=== PATIENT | female | born 1950 | race Caucasian/White ===

== ENCOUNTER 2016-11-26 16:46 | Emergency (ER) | payer BC ==
[~2016-11-26] VITALS: Ht 165.1 cm; Wt 38.1 kg
[~2016-11-26 16:46] MED LIST: BECL8.7A5 INH; IPRA0.2S6 INH; LISI5TAB PO; MED4 PO; MOME13HF2 INH
[2016-11-26 16:53] VITALS: BP_SYST 147
[2016-11-26 17:25] LABS: BASOPHILS # (AUTO) 0.1 K/uL (0.0-0.2); BASOPHILS % (AUTO) 0.9 % (0.0-2.0); EOSINOPHILS # (AUTO) 0.3 K/uL (0.0-0.4); EOSINOPHILS % (AUTO) 2.9 % (0.0-4.0); HEMATOCRIT 38.5 % (36-48); HEMOGLOBIN 12.8 g/dL (12.0-16.0); LYMPHOCYTES % (AUTO) 22.3 % (20.5-51.5); MEAN CORPUSCULAR HEMOGLOBIN 30 pg (27-31); MEAN CORPUSCULAR HGB CONC 33 % (32-36); MEAN CORPUSCULAR VOLUME 89 fL (79.0-98.0); MONOCYTES # (AUTO) 0.4 K/uL (0.0-1.0); MONOCYTES % (AUTO) 4.4 % (1.7-9.3); NEUTROPHILS # (AUTO) 6.2 K/uL (1.8-7.7); NEUTROPHILS % (AUTO) 69.5 % (40.0-70.0); PLATELET COUNT (AUTO) 317 K/uL (130-430); RED BLOOD CELL COUNT(AUTO) 4.31 MIL/uL (4.2-6.2); RED CELL DISTRIBUTION WIDTH 16.2 % (9.0-15.0)
[2016-11-26 17:36] LABS: INR 0.9 (0.8-1.2); PROTHROMBIN TIME 10.2 SECS (9.5-12.5)
[2016-11-26 17:40] LABS: CALCIUM 8.4 mg/dL (8.4-11.0); CREATININE 0.61 mg/dL (0.55-1.30); POTASSIUM 4.5 mmol/L (3.5-5.1)
[2016-11-26] MEDS ORDERED: BUDE6HFA INH (18:12)
[2016-11-26] MEDS ORDERED: METH4TAB3 PO (18:12)
[2016-11-26] MEDS ORDERED: ACET-1010 PO (18:12)
[2016-11-26] MEDS: ENOXAPARIN SODIUM 40 MG/0.4 ML SYRINGE SUBCUT ONE (18:19)
[2016-11-26] MEDS ORDERED: IOHEXOL 350 mgI/mL, 150 ML INFUS..BTL IV ONE (18:38)
[2016-11-26 19:45] VITALS: BP_SYST 140
== END 2016-11-26 19:45 | disposition home or self-care (01) ==
LOC: SED 16:46
DX: I82.402 Acute embolism and thrombosis of unspecified deep veins of left lower extremity (principal); J45.909 Unspecified asthma, uncomplicated; J44.9 Chronic obstructive pulmonary disease, unspecified; I10 Essential (primary) hypertension; M19.90 Unspecified osteoarthritis, unspecified site; Z88.8 Allergy status to other drugs, medicaments and biological substances; Z88.1 Allergy status to other antibiotic agents
CPT/HCPCS: 36415; 71010; 71275; 80048; 85025; 85610; 85730; 93005; 96372; 99285; J1650; Q9967

== ENCOUNTER 2017-01-02 16:00 | Emergency (ER) | payer BC ==
[~2017-01-02] VITALS: Ht 162.6 cm; Wt 38.1 kg
[~2017-01-02 16:00] MED LIST changes: +ACET-1010 PO; -BECL8.7A5 INH; +BUDE6HFA INH; -IPRA0.2S6 INH; -MED4 PO; +METH4TAB3 PO; -MOME13HF2 INH
[2017-01-02] MEDS ORDERED: NACL 0.9% 1,000 ML IV ONE (16:31)
[2017-01-02] MEDS ORDERED: KETOROLAC TROMETHAMINE 30 MG VIAL IVP ONE (16:45)
[2017-01-02] MEDS ORDERED: PROMETHAZINE HCL 25 MG/ML AMP IM ONE (16:45)
[2017-01-02] MEDS ORDERED: ONDANSETRON HCL 4 MG/2 ML VIAL IVP ONE (16:45)
[2017-01-02 16:52] VITALS: BP_SYST 146
[2017-01-02 16:52] LABS: BASOPHILS # (AUTO) 0.1 K/uL (0.0-0.2); BASOPHILS % (AUTO) 0.7 % (0.0-2.0); EOSINOPHILS # (AUTO) 0.2 K/uL (0.0-0.4); EOSINOPHILS % (AUTO) 2.2 % (0.0-4.0); HEMATOCRIT 39.3 % (36-48); HEMOGLOBIN 12.9 g/dL (12.0-16.0); LYMPHOCYTES # (AUTO) 1.1 K/uL (1.0-5.5); LYMPHOCYTES % (AUTO) 11.6 % (20.5-51.5); MEAN CORPUSCULAR HEMOGLOBIN 30 pg (27-31); MEAN CORPUSCULAR HGB CONC 33 % (32-36); MEAN CORPUSCULAR VOLUME 91 fL (79.0-98.0); MONOCYTES # (AUTO) 0.6 K/uL (0.0-1.0); MONOCYTES % (AUTO) 6.5 % (1.7-9.3); NEUTROPHILS # (AUTO) 7.7 K/uL (1.8-7.7); PLATELET COUNT (AUTO) 252 K/uL (130-430); RED BLOOD CELL COUNT(AUTO) 4.32 MIL/uL (4.2-6.2); RED CELL DISTRIBUTION WIDTH 14.1 % (9.0-15.0); WHITE BLOOD COUNT (AUTO) 9.7 K/uL (4.8-10.8)
[2017-01-02 16:57] LABS: CALCIUM 8.6 mg/dL (8.4-11.0); CREATININE 0.63 mg/dL (0.55-1.30); POTASSIUM 4.1 mmol/L (3.5-5.1)
[2017-01-02 17:01] LABS: ALBUMIN 3.6 g/dL (3.4-4.8); TOTAL BILIRUBIN 0.7 mg/dL (0.0-1.0)
[2017-01-02 17:57] LABS: BILIRUBIN,URINE NEGATIVE (NEGATIVE); BLOOD, URINE NEGATIVE (NEGATIVE); CLARITY/URINE CLEAR (CLEAR); COLOR,URINE YELLOW (YELLOW); GLUCOSE,URINE NEGATIVE (NEGATIVE); KETONES,URINE 3+ (NEGATIVE); LEUKOCYTE ESTERASE ,URINE NEGATIVE (NEGATIVE); NITRITE, URINE NEGATIVE (NEGATIVE); PH,URINE 5.5 (5.0-8.0); PROTEIN URINE 2+ (NEGATIVE); UROBILINOGEN,URINE 0.2 (0.2-1.0)
[2017-01-02] MEDS ORDERED: MECLIZINE HCL 25 MG TABLET (ANITVERT) PO ONE (18:00)
[2017-01-02 18:09] LABS: BACTERIA,URINE FEW /HPF (None Seen); MUCUS,URINE None Seen /LPF (None Seen); RBC,URINE NONE SEEN /HPF (0-3); WBC,URINE 0-3 /HPF (0-3)
[2017-01-02 20:32] VITALS: BP_SYST 138
== END 2017-01-02 20:32 | disposition home or self-care (01) ==
LOC: SED 16:00
DX: R42 Dizziness and giddiness (principal); J44.9 Chronic obstructive pulmonary disease, unspecified; I10 Essential (primary) hypertension; Z88.1 Allergy status to other antibiotic agents
CPT/HCPCS: 36415; 70450; 80053; 81000; 82150; 83690; 85025; 96361; 96372; 96374; 96375; 99285; J1885; J2405; J2550; J7030; J8597

== ENCOUNTER 2017-01-11 14:37 | Emergency (ER) | payer BC ==
[~2017-01-11] VITALS: Ht 162.6 cm; Wt 38.1 kg
[2017-01-11 14:40] VITALS: BP_SYST 152
[2017-01-11 15:01] LABS: BASOPHILS # (AUTO) 0.1 K/uL (0.0-0.2); BASOPHILS % (AUTO) 1.4 % (0.0-2.0); EOSINOPHILS # (AUTO) 0.4 K/uL (0.0-0.4); EOSINOPHILS % (AUTO) 4.3 % (0.0-4.0); HEMATOCRIT 39.8 % (36-48); HEMOGLOBIN 12.9 g/dL (12.0-16.0); LYMPHOCYTES # (AUTO) 1.3 K/uL (1.0-5.5); LYMPHOCYTES % (AUTO) 13.9 % (20.5-51.5); MEAN CORPUSCULAR HEMOGLOBIN 30 pg (27-31); MEAN CORPUSCULAR HGB CONC 33 % (32-36); MEAN CORPUSCULAR VOLUME 91 fL (79.0-98.0); MONOCYTES # (AUTO) 0.6 K/uL (0.0-1.0); MONOCYTES % (AUTO) 6.1 % (1.7-9.3); NEUTROPHILS # (AUTO) 7.1 K/uL (1.8-7.7); NEUTROPHILS % (AUTO) 74.3 % (40.0-70.0); PLATELET COUNT (AUTO) 372 K/uL (130-430); RED BLOOD CELL COUNT(AUTO) 4.39 MIL/uL (4.2-6.2); RED CELL DISTRIBUTION WIDTH 13.9 % (9.0-15.0); WHITE BLOOD COUNT (AUTO) 9.5 K/uL (4.8-10.8)
[2017-01-11 15:11] LABS: CALCIUM 9.3 mg/dL (8.4-11.0); CREATININE 0.7 mg/dL (0.55-1.30)
[2017-01-11 15:16] LABS: ALBUMIN 3.7 g/dL (3.4-4.8); TOTAL BILIRUBIN 0.5 mg/dL (0.0-1.0); TOTAL PROTEIN, SERUM 7.5 g/dL (6.4-8.3)
[2017-01-11] MEDS ORDERED: NACL 0.9% 1,000 ML IV ONE (18:57)
[2017-01-11 19:18] LABS: BILIRUBIN,URINE NEGATIVE (NEGATIVE); CLARITY/URINE CLEAR (CLEAR); COLOR,URINE YELLOW (YELLOW); GLUCOSE,URINE NEGATIVE (NEGATIVE); KETONES,URINE NEGATIVE (NEGATIVE); LEUKOCYTE ESTERASE ,URINE NEGATIVE (NEGATIVE); NITRITE, URINE NEGATIVE (NEGATIVE); PH,URINE 5.5 (5.0-8.0); PROTEIN URINE NEGATIVE (NEGATIVE); UROBILINOGEN,URINE 0.2 (0.2-1.0)
[2017-01-11 19:19] LABS: BLOOD, URINE TRACE (NEGATIVE)
[2017-01-11 19:21] LABS: BACTERIA,URINE FEW /HPF (None Seen); MUCUS,URINE 1+ /LPF (None Seen); RBC,URINE 0-3 /HPF (0-3)
[2017-01-11 20:35] VITALS: BP_SYST 127
== END 2017-01-11 20:35 | disposition home or self-care (01) ==
LOC: SED 14:37
DX: K52.9 Noninfective gastroenteritis and colitis, unspecified (principal); K59.00 Constipation, unspecified; J44.9 Chronic obstructive pulmonary disease, unspecified; I10 Essential (primary) hypertension; Z88.8 Allergy status to other drugs, medicaments and biological substances
CPT/HCPCS: 36415; 74176; 80053; 81000; 82150; 83690; 85025; 96360; 99285; J7030

== ENCOUNTER 2017-01-15 04:50 | Inpatient (IN) | payer BC ==
[2017-01-15] VITALS (7 sets, daily range): BP systolic 115–141
[~2017-01-15] VITALS: Ht 162.6 cm; Wt 38.1 kg
[2017-01-15] MEDS ORDERED: NACL 0.9% 1,000 ML IV ONE (05:12)
[2017-01-15] MEDS ORDERED: IPRATROPIUM BROM 0.5 MG/2.5 ML VIAL.NEB (ATROVENT) IH ONE ×2 (05:15→07:45)
[2017-01-15] MEDS ORDERED: LevALBUTEROL HCL 1.25 MG/0.5 ML *CONC.* VIAL.NEB (XOPENEX CONC.) INH ONE ×2 (05:15→06:00)
[2017-01-15 05:53] LABS: BASOPHILS # (AUTO) 0.1 K/uL (0.0-0.2); BASOPHILS % (AUTO) 0.8 % (0.0-2.0); EOSINOPHILS # (AUTO) 0.7 K/uL (0.0-0.4); EOSINOPHILS % (AUTO) 7.7 % (0.0-4.0); HEMATOCRIT 38.8 % (36-48); HEMOGLOBIN 12.6 g/dL (12.0-16.0); LYMPHOCYTES # (AUTO) 1.7 K/uL (1.0-5.5); LYMPHOCYTES % (AUTO) 18.3 % (20.5-51.5); MEAN CORPUSCULAR HEMOGLOBIN 30 pg (27-31); MEAN CORPUSCULAR HGB CONC 32 % (32-36); MEAN CORPUSCULAR VOLUME 92 fL (79.0-98.0); MONOCYTES # (AUTO) 0.5 K/uL (0.0-1.0); NEUTROPHILS # (AUTO) 6.1 K/uL (1.8-7.7); NEUTROPHILS % (AUTO) 68.2 % (40.0-70.0); PLATELET COUNT (AUTO) 358 K/uL (130-430); RED BLOOD CELL COUNT(AUTO) 4.24 MIL/uL (4.2-6.2); RED CELL DISTRIBUTION WIDTH 13.6 % (9.0-15.0); WHITE BLOOD COUNT (AUTO) 9.1 K/uL (4.8-10.8)
[2017-01-15 06:00] LABS: CALCIUM 8.7 mg/dL (8.4-11.0); CREATININE 0.58 mg/dL (0.55-1.30); POTASSIUM 3.8 mmol/L (3.5-5.1)
[2017-01-15] MEDS ORDERED: ALBU8.5H8 INH (07:17)
[2017-01-15] MEDS ORDERED: ALBU2.5V7 INH (07:17)
[2017-01-15] MEDS ORDERED: RIVA20TA PO (07:17)
[2017-01-15] MEDS ORDERED: methylPREDNISolone SOD SUCC/PF 62.5 MG/ML VIAL IVP ONE (07:45)
[2017-01-15] MEDS ORDERED: ALBUTEROL SULFATE 0.083% 2.5 MG/3 ML VIAL.NEB IH ONE (07:45)
[2017-01-15 07:47] LABS: BILIRUBIN,URINE NEGATIVE (NEGATIVE); BLOOD, URINE NEGATIVE (NEGATIVE); CLARITY/URINE CLEAR (CLEAR); COLOR,URINE YELLOW (YELLOW); GLUCOSE,URINE NEGATIVE (NEGATIVE); KETONES,URINE NEGATIVE (NEGATIVE); LEUKOCYTE ESTERASE ,URINE NEGATIVE (NEGATIVE); NITRITE, URINE NEGATIVE (NEGATIVE); PH,URINE 5.5 (5.0-8.0); PROTEIN URINE NEGATIVE (NEGATIVE); UROBILINOGEN,URINE 0.2 (0.2-1.0)
[2017-01-15] MEDS ORDERED: LORazepam 2 MG/ML VIAL (FOR ER USE) IVP ONE (08:00)
[2017-01-15] MEDS ORDERED: cefTRIAXone 1 GM IVPB PREMIX 50 ML IV ONE (08:00)
[2017-01-15] MEDS ORDERED: AZITHROMYCIN 500 MG in NS 250 ML IV ONE (08:00)
[2017-01-15] MEDS ORDERED: cefTRIAXone 1 GM in D5W 50 ML IV ONE (08:30)
[2017-01-15] MEDS ORDERED: AZITHROMYCIN 500 MG/VIAL (ZITHROMAX) IV ONE (08:38)
[2017-01-15 09:10] LABS: ABG TOTAL HEMOGLOBIN 13.1 G/dL (12.0-18.0); BLOOD GAS BASE EXCESS -0.3 mmol/L (-3.0-3.0); BLOOD GAS COHb% 0.1 % (0.5-1.5); BLOOD GAS HHB 6.8 % (0.0-6.0); BLOOD O2Hb% 92.8 % (94.0-97.0)
[2017-01-15] MEDS ORDERED: ACETAMINOPHEN 500 MG TABLET PO PRN (11:00)
[2017-01-15] MEDS ORDERED: methylPREDNISolone SOD SUCC/PF 62.5 MG/ML VIAL IVP SCH (12:00)
[2017-01-15] MEDS: ALBUTEROL SULFATE 0.083% 2.5 MG/3 ML VIAL.NEB INH SCH ×4 (13:35→23:00)
[2017-01-15] MEDS: ALBUTEROL SULFATE 0.083% 2.5 MG/3 ML VIAL.NEB INH PRN (13:38)
[2017-01-15] MEDS: IPRATROPIUM BROM 0.5 MG/2.5 ML VIAL.NEB (ATROVENT) INH SCH ×2 (20:12→23:00)
[2017-01-15] MEDS: cefTRIAXone 1 GM in D5W 50 ML IV SCH (21:28)
[2017-01-15] MEDS: methylPREDNISolone SOD SUCC 40 MG/ML VIAL IVP SCH (21:28)
[2017-01-16] VITALS (8 sets, daily range): BP systolic 103–127
[2017-01-16] MEDS: IPRATROPIUM BROM 0.5 MG/2.5 ML VIAL.NEB (ATROVENT) INH SCH ×6 (03:00→23:15)
[2017-01-16] MEDS: ALBUTEROL SULFATE 0.083% 2.5 MG/3 ML VIAL.NEB INH SCH ×6 (03:00→23:00)
[2017-01-16] MEDS: methylPREDNISolone SOD SUCC 40 MG/ML VIAL IVP SCH ×3 (06:29→22:06)
[2017-01-16] MEDS: RIVAROXABAN 10 MG TABLET PO SCH (08:51)
[2017-01-16] MEDS: AZITHROMYCIN 500 MG in NS 250 ML IV SCH (08:55)
[2017-01-16] MEDS: LISINOPRIL 5 MG TABLET PO SCH (08:58)
[2017-01-16] MEDS: FLUTICASONE/VILANTEROL 1 EACH BLST.W.DEV INH SCH (09:00)
[2017-01-16] MEDS: ALBUTEROL SULFATE 0.083% 2.5 MG/3 ML VIAL.NEB INH PRN (10:39)
[2017-01-16] MEDS ORDERED: LORazepam 2 MG/ML VIAL IVP PRN (10:45)
[2017-01-16] MEDS: ACETYLCYSTEINE 10% 4 ML VIAL (RT) INH SCH ×2 (15:07→19:46)
[2017-01-16] MEDS ORDERED: MONTELUKAST 10 MG TABLET PO SCH (18:00)
[2017-01-16] MEDS: cefTRIAXone 1 GM in D5W 50 ML IV SCH (22:07)
[2017-01-17 00:21] VITALS: BP_SYST 125
[2017-01-17] MEDS: ALBUTEROL SULFATE 0.083% 2.5 MG/3 ML VIAL.NEB INH SCH ×3 (03:00→11:46)
[2017-01-17] MEDS: IPRATROPIUM BROM 0.5 MG/2.5 ML VIAL.NEB (ATROVENT) INH SCH ×3 (03:00→11:46)
[2017-01-17 04:11] VITALS: BP_SYST 125
[2017-01-17] MEDS: methylPREDNISolone SOD SUCC 40 MG/ML VIAL IVP SCH (06:02)
[2017-01-17 06:27] LABS: HEMATOCRIT 34.7 % (36-48); HEMOGLOBIN 11.4 g/dL (12.0-16.0); MEAN CORPUSCULAR HEMOGLOBIN 30 pg (27-31); MEAN CORPUSCULAR HGB CONC 33 % (32-36); MEAN CORPUSCULAR VOLUME 91 fL (79.0-98.0); PLATELET COUNT (AUTO) 312 K/uL (130-430); RED BLOOD CELL COUNT(AUTO) 3.81 MIL/uL (4.2-6.2); RED CELL DISTRIBUTION WIDTH 13.4 % (9.0-15.0); WHITE BLOOD COUNT (AUTO) 14.7 K/uL (4.8-10.8)
[2017-01-17 07:50] VITALS: BP_SYST 127
[2017-01-17] MEDS: ACETYLCYSTEINE 10% 4 ML VIAL (RT) INH SCH ×2 (07:56→11:47)
[2017-01-17] MEDS: AZITHROMYCIN 500 MG in NS 250 ML IV SCH (08:30)
[2017-01-17] MEDS: RIVAROXABAN 10 MG TABLET PO SCH (08:31)
[2017-01-17] MEDS: FLUTICASONE/VILANTEROL 1 EACH BLST.W.DEV INH SCH (08:31)
[2017-01-17] MEDS: LISINOPRIL 5 MG TABLET PO SCH (08:31)
[2017-01-17 09:50] LABS: ATYPICAL LYMPHOCYTES % 0 % (0-0); BAND % (MANUAL) 1 % (0-6); BASOPHILS % (MANUAL) 0 % (0-2); EOSINOPHILS % (MANUAL) 0 % (0-7); LYMPHOCYTES % (MANUAL) 6 % (20-46); MONOCYTES % (MANUAL) 0 % (0-11)
[2017-01-17 11:28] LABS: ALBUMIN 3.1 g/dL (3.4-4.8); CALCIUM 8.8 mg/dL (8.4-11.0); CREATININE 0.52 mg/dL (0.55-1.30); POTASSIUM 4.4 mmol/L (3.5-5.1); TOTAL BILIRUBIN 0.4 mg/dL (0.0-1.0); TOTAL PROTEIN, SERUM 6.4 g/dL (6.4-8.3)
[2017-01-17 12:54] VITALS: BP_SYST 125
[2017-01-17] MEDS ORDERED: DOXY100T2 PO (13:02)
[2017-01-17] MEDS ORDERED: LORA-258 PO (13:03)
[2017-01-17] MEDS ORDERED: ROBDM PO (13:04)
[2017-01-17] MEDS ORDERED: medrol pack PO (13:05)
[2017-01-17 13:10] VITALS: BP_SYST 125
== END 2017-01-17 14:00 | disposition home or self-care (01) | DRG 191 ==
LOC: SED 04:50 → STU 08:16
DX: J44.1 Chronic obstructive pulmonary disease with (acute) exacerbation (principal); J45.901 Unspecified asthma with (acute) exacerbation; I82.402 Acute embolism and thrombosis of unspecified deep veins of left lower extremity; E44.1 Mild protein-calorie malnutrition; G62.9 Polyneuropathy, unspecified; M19.90 Unspecified osteoarthritis, unspecified site; M54.9 Dorsalgia, unspecified; F03.90 Unspecified dementia, unspecified severity, without behavioral disturbance, psychotic disturbance, mood disturbance, and anxiety; K21.9 Gastro-esophageal reflux disease without esophagitis; G89.29 Other chronic pain; F41.9 Anxiety disorder, unspecified; I10 Essential (primary) hypertension; Z79.01 Long term (current) use of anticoagulants; Z79.52 Long term (current) use of systemic steroids; Z88.6 Allergy status to analgesic agent; Z88.1 Allergy status to other antibiotic agents; Z90.2 Acquired absence of lung [part of]; Z98.49 Cataract extraction status, unspecified eye; Z79.899 Other long term (current) drug therapy
CPT/HCPCS: 36415; 36600; 71010; 80048; 80053; 81003; 82803-TC; 83605; 85007; 85025; 85027; 87040-TC; 87081; 94640; 94760; 96361; 96365; 96367; 96375; 99285; J0456; J0696; J1030; J2060; J2930; J7030; J7050; J7060

== ENCOUNTER 2017-03-09 12:00 | Inpatient (IN) | payer BC ==
[~2017-03-09] VITALS: Ht 162.6 cm; Wt 38.1 kg
[~2017-03-09 12:00] MED LIST changes: +ALBU2.5V7 INH; +ALBU8.5H8 INH; +DOXY100T2 PO; +LORA-258 PO; -METH4TAB3 PO; +RIVA20TA PO; +ROBDM PO; +medrol pack PO
[2017-03-09 12:10] VITALS: BP_SYST 125
--- NOTE | 2017-03-09 12:18 | NUR ---
PT STATES SOB GETTING WORSE IN THE PAST COUPLE DAYS, USING INHALER IS NO LONGER HELPING. +DRY COUGH.
--- NOTE | 2017-03-09 12:20 | NUR ---
BRAND COORDINATOR AT BEDSIDE FOR BREATHING TREATMENT
--- NOTE | 2017-03-09 12:22 | NUR ---
CHEST XRAY DONE AT BEDSIDE.
[2017-03-09] MEDS ORDERED: PREDNISONE 20 MG TABLET PO ONE (12:30)
[2017-03-09] MEDS ORDERED: IPRATROPIUM BROM 0.5 MG/2.5 ML VIAL.NEB (ATROVENT) INH ONE (12:30)
[2017-03-09] MEDS ORDERED: ALBUTEROL SULFATE 0.083% 2.5 MG/3 ML VIAL.NEB INH ONE (12:30)
[2017-03-09 13:03] LABS: HEMATOCRIT 39.4 % (36-48); HEMOGLOBIN 12.8 g/dL (12.0-16.0); MEAN CORPUSCULAR HEMOGLOBIN 29 pg (27-31); MEAN CORPUSCULAR HGB CONC 32 % (32-36); MEAN CORPUSCULAR VOLUME 89 fL (79.0-98.0); PLATELET COUNT (AUTO) 284 K/uL (130-430); RED BLOOD CELL COUNT(AUTO) 4.41 MIL/uL (4.2-6.2); RED CELL DISTRIBUTION WIDTH 14.4 % (9.0-15.0); WHITE BLOOD COUNT (AUTO) 11.1 K/uL (4.8-10.8)
[2017-03-09 13:16] LABS: CALCIUM 8.8 mg/dL (8.4-11.0); CREATININE 0.63 mg/dL (0.55-1.30)
[2017-03-09 13:20] LABS: ALBUMIN 3.6 g/dL (3.4-4.8); TOTAL BILIRUBIN 0.8 mg/dL (0.0-1.0); TOTAL PROTEIN, SERUM 7.4 g/dL (6.4-8.3)
--- NOTE | 2017-03-09 13:31 | NUR ---
PT STATES THAT SHE FEELS BETTER SINCE BREATHING TREATMENT GIVEN. NO CHANGES, DENIES ANY PAIN
--- NOTE | 2017-03-09 13:47 | NUR ---
DR LEO AT BEDSIDE FOR EVALUATION
[2017-03-09 13:57] LABS: ATYPICAL LYMPHOCYTES % 0 % (0-0); BAND % (MANUAL) 0 % (0-6); BASOPHILS % (MANUAL) 0 % (0-2); EOSINOPHILS % (MANUAL) 23 % (0-7); LYMPHOCYTES % (MANUAL) 17 % (20-46); MONOCYTES % (MANUAL) 9 % (0-11)
--- NOTE | 2017-03-09 14:20 | NUR ---
NO CHANGES, +DRY COUGHING
[2017-03-09] MEDS ORDERED: cefTRIAXone 1 GM in D5W 50 ML IV ONE (14:45)
[2017-03-09] MEDS ORDERED: MOME13HF2 INH (14:51)
[2017-03-09] MEDS ORDERED: MED4 PO (14:51)
--- NOTE | 2017-03-09 15:07 | NUR ---
REPORT GIVEN TO ROBBIE, WILL ASSUME CARE
--- NOTE | 2017-03-09 15:08 | NUR ---
RECEIVED ADMITTING ORDERS FROM DR BONILLA
[2017-03-09] MEDS ORDERED: cefTRIAXone 1 GM VIAL ONE (15:24)
[2017-03-09 15:34] LABS: BLOOD GAS PH 7.465 (7.350-7.450)
[2017-03-09 15:35] LABS: ABG TOTAL HEMOGLOBIN 13.8 G/dL (12.0-18.0); BLOOD GAS BASE EXCESS 2.2 mmol/L (-3.0-3.0)
[2017-03-09 15:36] LABS: BLOOD GAS COHb% 0.4 % (0.5-1.5); BLOOD GAS HHB 13.7 % (0.0-6.0); BLOOD O2Hb% 85.7 % (94.0-97.0)
--- NOTE | 2017-03-09 16:00 | NUR ---
Patient will be admitted to care of Dr Carrillo. Admitted to tele unit. Will go to room 116 A. Belongings list completed. Summary report printed. Report will be given at bedside.
--- NOTE | 2017-03-09 16:00 | NUR ---
Transfer to tele via ACLS protocol. Licensed nurse present. IV present no signs or symptoms of infiltration.
[2017-03-09 16:05] VITALS: BP_SYST 123
--- NOTE | 2017-03-09 16:05 | NUR ---
ADMISSION NOTE Received patient from ER via gurney. Patient admitted with diagnosis of ASTHMA EXACERBATION. Patient oriented to hospital routine, call light, toileting and safety-patient verbalized understanding.
--- NOTE | 2017-03-09 17:09 | NUR ---
Rounds to patient says she was given prednisone. Wants solumedrol because says its the only thing that works for her shortness of breath. Wheezing audible in right upper lobe, diminished left upper lobe. paged.
[2017-03-09] MEDS ORDERED: methylPREDNISolone SOD SUCC/PF 62.5 MG/ML VIAL IVP ONE (17:30)
--- NOTE | 2017-03-09 17:42 | NUR ---
CONSULT PULMONOLOGY ASTHMA EXACERBATION DR LUCAS [phone] DR US RESEARCH GROUP DIRECTOR S/W MADDI @[phone]
--- NOTE | 2017-03-09 19:12 | NUR ---
HANDOFF REPORT WITH NIGHT NURSE. PATIENT USING WALKER TO AMBULATE TO RESTROOM. PATIENT NOTES SOLUMEDROL WORKS TO RELIEVE ASTHMA SHORTNESS OF BREATH. HAS ORDERS FOR PULMONARY CONSULT WITH DOCTOR LANCE AND ALBUTEROL NEBULIZER WITH OXYGEN 2L.
[2017-03-09] MEDS: ALBUTEROL SULFATE 0.083% 2.5 MG/3 ML VIAL.NEB INH PRN ×2 (19:35→23:53)
--- NOTE | 2017-03-09 19:46 | NUR ---
Initial Notes Pt is A/Ox4, cooperative. Pt becomes easily sob, and is currently on 2L N/C with O2 saturation at 95%. Pt instructed to take deep breaths thru her nose and out her mouth. RT called and currently is giving pt breathing tx. Pt noted to have a non productive cough. Lung sounds auscultated with some rhonchi and wheezing heard over anterior lung sounds. IV to LFA #22g noted, saline lock with no s/s of infection. Plan of care discussed with pt, pt verbalized understanding. Will reinforce teaching as needed. VSS. Safety measures in place, side rails up x3 with bed in lowest, locked position, bed alarm on. Pt educated director of curriculum and instruction light and correct back demonstration noted. Call light in hand. Will continue to monitor.
[2017-03-09 19:51] VITALS: BP_SYST 134
[2017-03-09] MEDS: AZITHROMYCIN 500 MG in NS 250 ML IV SCH (20:10)
[2017-03-09] MEDS: RIVAROXABAN 10 MG TABLET PO SCH (20:14)
[2017-03-09 21:28] VITALS: BP_SYST 137
[2017-03-09] MEDS: methylPREDNISolone SOD SUCC/PF 62.5 MG/ML VIAL IVP SCH (22:26)
[2017-03-10] VITALS: BP_SYST 93
--- NOTE | 2017-03-10 01:26 | NUR ---
Rounds Pt is sleeping comfortably in bed with no acute distress or sob noted. All needs met. VSS. Call light in reach. Will continue to monitor.
--- NOTE | 2017-03-10 04:22 | NUR ---
Rounds Pt is sleeping safely at this time with no acute distress or sob noted. All needs met. Call light in reach. Will continue to monitor.
[2017-03-10 04:42] VITALS: BP_SYST 122
[2017-03-10] MEDS: methylPREDNISolone SOD SUCC/PF 62.5 MG/ML VIAL IVP SCH ×3 (05:52→22:00)
--- NOTE | 2017-03-10 06:31 | NUR ---
Closing Notes Pt is resting comfortably in bed with no acute distress noted. IV site intact. VSS. All needs met throughout shift. Will endorse care to am nurse. Call light within reach.
--- NOTE | 2017-03-10 07:44 | NUR ---
OPENING NOTE: PT RESTING IN BED IN HIGH FOWLERS. NO ACUTE SIGNS OF RESP DISTRESS, NO SOB. PT ON 2L O2 NC AND SATURATING AT 94% O2. SKIN WARM DRY AND PINK. IV INTACT AND PATENT, NO REDNESS/SWELLING/PAIN TO SITE. BED AT LOWEST POSITION, CALL LIGHT IN REACH. WALKER WITHIN REACH.
[2017-03-10 07:49] VITALS: BP_SYST 115
[2017-03-10] MEDS: LISINOPRIL 10 MG TABLET (PRINIVIL) PO SCH (08:31)
[2017-03-10] MEDS: cefTRIAXone 1 GM IVPB PREMIX 50 ML IV SCH (08:31)
--- NOTE | 2017-03-10 09:09 | NUR ---
Nutrition Update Wang Scale 18 noted. Pt admitted for asthma exacerbation. Diet: regular BMI: 17.6 kg/m2 RD to follow per nutrition care standards.
--- NOTE | 2017-03-10 10:35 | NUR ---
ROUNDING: PT AAOX4. NO ACUTE SIGNS OF RESP DISTRESS. PT ON 2L O2 NC. PT DENIES SOB, CHEST PRESSURE, DIZZINESS AND LIGHTHEADED. DENIES PAIN AT THIS TIME. SKIN COLOR PINK. IV INTACT AND PATENT, NO REDNESS/SWELLING/PAIN. WALKER WITHIN REACH. BED AT LOWEST POSITION, CALL LIGHT IN REACH. ALL NEEDS MET AT THIS TIME.
--- NOTE | 2017-03-10 10:38 | NUR ---
ROUNDING: PT REST IN BED WITH HOB ELEVATED. NO ACUTE SIGNS OF RESP DISTRESS, PT ON RA. SKIN COLOR PINK. IV INTACT AND PATENT, NO REDNESS/SWELLING/PAIN. DENIES PAIN AT THIS TIME. AM MEDS GIVEN PER MD ORDERS AND PT TOLERATED WELL. BED AT LOWEST POSITION, CALL LIGHT IN REACH, BED ALARM ON, SIDE RAILX3.
[2017-03-10 12:02] VITALS: BP_SYST 119
--- NOTE | 2017-03-10 12:50 | NUR ---
ROUNDING: PT RESTING IN BED. NO ACUTE SIGNS OF RESP DISTRESS. PT ON 2L O2 NC. PT DENIES SOB, DIZZINESS/LIGHTHEADED, AND CHEST PAIN. SKIN COLOR PINK. IV INTACT AND PATENT, NO REDNESS/SWELLING/PAIN. WALKER WITHIN REACH. BED AT LOWEST POSITION, CALL LIGHT IN REACH.
[2017-03-10] MEDS: ALBUTEROL SULFATE 0.083% 2.5 MG/3 ML VIAL.NEB INH SCH ×2 (14:01→20:22)
[2017-03-10] MEDS: IPRATROPIUM BROM 0.5 MG/2.5 ML VIAL.NEB (ATROVENT) INH SCH ×2 (14:02→20:22)
--- NOTE | 2017-03-10 14:10 | NUR ---
ROUNDING: PT RESTING IN BED, HIGH FOWLERS. NO ACUTE SIGNS OF RESP DISTRESS. SKIN WARM DRY AND PINK. PT ON 2L O2 NC, TOLERATING WELL. PT DENIES SOB, CHEST PAIN, DIZZINESS AND LIGHTHEADED. MEDS GIVEN PER MD ORDERS, PT TOLERATED WELL. IV INTACT AND PATENT, NO REDNESS/SWELLING. BED AT LOWEST POSITION, CALL LIGHT IN REACH, WALKER WITHIN REACH.
--- NOTE | 2017-03-10 16:07 | NUR ---
ROUNDING: PT RESTING IN BED, HIGH FOWLERS. NO ACUTE SIGNS OF RESP DISTRESS. DENIES SOB AND CHEST PAIN. SKIN COLOR PINK. IV INTACT AND PATENT, NO REDNESS/SWELLING/PAIN. WALKER IN REACH. ALL NEEDS MET AT THIS TIME. BED AT LOWEST POSITION, CALL LIGHT IN REACH.
[2017-03-10 16:25] VITALS: BP_SYST 122
[2017-03-10] MEDS: RIVAROXABAN 10 MG TABLET PO SCH (18:00)
[2017-03-10] MEDS: AZITHROMYCIN 500 MG in NS 250 ML IV SCH (18:00)
--- NOTE | 2017-03-10 18:26 | NUR ---
CLOSING NOTE: PT RESTING IN BED IN HIGH FOWLERS, WATCHING TV. AAOX4. NO ACUTE SIGNS OF RESP DISTRESS, DENIES SOB. SKIN COLOR PINK. IV INTACT AND PATENT, NO REDNESS/SWELLING/PAIN. MEDS GIVEN PER MD ORDERS, PT TOLERATED WELL. WALKER WITHIN REACH. BED AT LOWEST POSITION, CALL LIGHT IN REACH. WILL ENDORSE PLAN OF CARE TO NAI REEDER.
--- NOTE | 2017-03-10 19:30 | NUR ---
INITIAL NOTE PT. AMBULATING IN HALLS AT THIS TIME. WILL COME BACK TO REASSESS. PT. ALERT, ORIENTED, AND DOES NOT SHOW SIGNS OF ACUTE DISTRESS.
[2017-03-10 19:50] VITALS: BP_SYST 91
--- NOTE | 2017-03-10 19:50 | NUR ---
INITIAL ASSESSMENT PT. RESTING IN BED, ALERT AND ORIENTED. NO S/S OF SOB OR ACUTE DISTRESS. PT. DENIES PAIN OR DISCOMFORT AT THIS TIME. PT. BLOOD PRESSURE ON THE LOW END, 91/ 56. PT. IS ASYMPTOMATIC. PLACED PT. IN THE TRENDELENBERG POSITION. WILL MONITOR CLOSELY. PT. SATING AT 91% ON 2L NASAL CANNULA. LUNG SOUNDS ARE CLEAR. IV ACCESS NOTED TO LEFT WRIST #22 SALINE LOCK, NO REDNESS OR SWELLING TO THE SITE. PLAN OF CARE DISCUSSED WITH THE PT, USE OF CALL LIGHT ENCOURAGED. VERBALIZES UNDERSTANDING. PT. NOTED TO AMBULATE WITH STEADY GAIT USING WALKER. WILL CONTINUE TO MONITOR FOR ANY CHANGES. SAFETY AND FALL PRECAUTIONS IN PLACE, CALL LIGHT IN REACH. BED ALARM NOT ON PT. STATES SHE CAN AMBULATE WITH STEADY GAIT AND AGREES TO CALL FOR ANY ASSISTANCE.
[2017-03-10] MEDS: BUDESONIDE 0.5 MG/2 ML AMPUL.NEB INH SCH (20:40)
--- NOTE | 2017-03-10 22:06 | NUR ---
ROUNDS ASSISTED PT. TO THE RESTROOM SO SHE COULD RINSE HER MOUTH. STATES SHE DOES THIS FOLLOWING HER BREATHING TREATMENTS. PT. AMBULATED WITH STEADY GAIT USING HER WALKER. BACK TO BED AND IN A COMFORTABLE POSITION. NO S/S OF SOB OR DISTRESS NOTED. SOLUMEDROL GIVEN IVP ORDERED. BLOOD PRESSURE REASSESSED, SYSTOLIC BP IN THE 90S. PT. ASYMPTOMATIC. WILL NOTIFY MD IF IT GOES BELOW THIS OR IF PT. BECOMES SYMPTOMATIC. ALL NEEDS MET AT THIS TIME. WILL CONTINUE TO MONITOR FOR ANY CHANGES. SAFETY AND FALL PRECAUTIONS IN PLACE. CALL LIGHT IN REACH. BED IN LOWEST LOCKED POSITION.
[2017-03-11 00:31] VITALS: BP_SYST 107; BP_SYST 87
--- NOTE | 2017-03-11 00:48 | NUR ---
ROUNDS/ MD CALL PAGING DR BONILLA. PT. STATES SHE IS HAVING A HEADACHE. WILL AWAIT CALL BACK. VSS AT THIS TIME. BLOOD PRESSURE WITHIN NORMAL LIMITS. BREATHING IS EVEN AND UNLABORED. WILL CONTINUE TO MONITOR FOR CHANGES. SAFETY AND FALL PRECAUTIONS IN PLACE. CALL LIGHT IN REACH. BED IN LOWEST LOCKED POSITION WITH WALKER CLOSE TO BEDSIDE.
[2017-03-11] MEDS: ALBUTEROL SULFATE 0.083% 2.5 MG/3 ML VIAL.NEB INH SCH ×4 (01:00→20:16)
[2017-03-11] MEDS: IPRATROPIUM BROM 0.5 MG/2.5 ML VIAL.NEB (ATROVENT) INH SCH ×4 (01:00→20:16)
--- NOTE | 2017-03-11 01:15 | NUR ---
MD GALDAMEZ SPOKE WITH DR. BONILLA AND INFORMED HIM THAT PT. REQUESTED TYLENOL. ORDERS WERE GIVEN. WILL CARRY OUT. ALSO INFORMED HIM THAT PT. HAD AN EPISODE OF LOW BP OF 91/56, BUT THAT IT IS NOW WITHIN A NORMAL RANGE. NO NEW ORDERS WERE GIVEN REGARDING THIS.
--- NOTE | 2017-03-11 02:29 | NUR ---
ROUNDS PT. RESTING IN BED WITH EYES CLOSED. CHEST RISE AND FALL NOTED. NO S/S OF SOB OR DISTRESS. NO FACIAL GRIMACING INDICATING PAIN. TYLENOL AVAILABLE FOR PAIN, BUT PT. SLEEPING AT THIS TIME. WILL FOLLOW UP WITH PT. AND ADMINISTER TYLENOL IF PT. IS STILL EXPERIENCING PAIN WHEN SHE WAKES. WILL CONTINUE TO MONITOR FOR CHANGES. SAFETY AND FALL PRECAUTIONS IN PLACE. CALL LIGHT IN REACH, WALKER NEXT TO THE BEDSIDE FOR EASY ACCESS.
[2017-03-11 04:00] VITALS: BP_SYST 115
[2017-03-11] MEDS: ACETAMINOPHEN 325 MG TABLET PO PRN ×2 (04:05→10:18)
--- NOTE | 2017-03-11 04:27 | NUR ---
ROUNDS PT. GIVEN TYLENOL FOR MILD HEAD PAIN. VSS. NO S/S OF SOB OR DISTRESS NOTED. WILL CONTINUE TO MONITOR FOR CHANGES. SAFETY AND FALL PRECAUTIONS IN PLACE. CALL LIGHT IN REACH.
[2017-03-11] MEDS: methylPREDNISolone SOD SUCC/PF 62.5 MG/ML VIAL IVP SCH ×3 (05:27→21:33)
--- NOTE | 2017-03-11 06:34 | NUR ---
CLOSING NOTE PT. RESTING IN BED QUIETLY WITH EYES CLOSED. CHEST RISE AND FALL NOTED. BREATHING IS EVEN AND UNLABORED. NO S/S OF SOB OR DISTRESS. NO FACIAL GRIMACING INDICATING PAIN. ALL NEEDS MET THROUGHOUT THE SHIFT. SAFETY AND FALL PRECAUTIONS WERE MAINTAINED. WILL ENDORSE CARE TO AM NURSE. CALL LIGHT IN REACH, BED IN LOWEST LOCKED POSITION.
[2017-03-11] MEDS: BUDESONIDE 0.5 MG/2 ML AMPUL.NEB INH SCH (07:00)
[2017-03-11 07:44] VITALS: BP_SYST 104
--- NOTE | 2017-03-11 07:48 | NUR ---
OPENING NOTE: PT RESTING IN BED, COMFORTABLY IN SEMI FOWLERS. PT AAOX4. NO ACUTE SIGNS OF RESP DISTRESS. PT DENIES SOB, CHEST PAIN, AND DIZZINESS. SKIN WARM DRY AND PINK. IV INTACT AND PATENT, NO REDNESS/SWELLING/PAIN. WALKER WITHIN REACH. BED AT LOWEST POSITION, CALL LIGHT IN REACH.
[2017-03-11] MEDS: cefTRIAXone 1 GM IVPB PREMIX 50 ML IV SCH (08:23)
[2017-03-11] MEDS: LISINOPRIL 10 MG TABLET (PRINIVIL) PO SCH (08:24)
--- NOTE | 2017-03-11 10:23 | NUR ---
ROUNDING: AM MEDS/PAIN MEDS GIVEN PER MD ORDERS, PT TOLERATED WELL. PT CURRENTLY DOING HYGIENE CARE. NO ACUTE SIGNS OF RESP DISTRESS. DENIES SOB, DIZZINESS/LIGHTHEADED, AND CP. SKIN WARM DRY AND PINK. IV INTACT AND PATENT, NO REDNESS/SWELLING/PAIN TO SITE. BED AT LOWEST POSITION, CALL LIGHT IN REACH, WALKER IN REACH.
--- NOTE | 2017-03-11 12:09 | NUR ---
ROUNDING: PT RESTING IN BED, WATCHING TV. NO ACUTE SIGNS OF RESP DISTRESS, DENIES SOB & DIZZINESS. IV INTACT AND PATENT, NO REDNESS/SWELLING/PAIN. WALKER WITHIN REACH. BED ALARM ON, SIDE RAILX3, BED AT LOWEST POSITION, CALL LIGHT IN REACH.
[2017-03-11 13:13] VITALS: BP_SYST 115
--- NOTE | 2017-03-11 14:18 | NUR ---
ROUNDING: PT LAYING IN BED WITH HOB ELEVATED. PT WATCHING TV. NO ACUTE SIGNS OF RESP DISTRESS. PT DENIES SOB, CHEST PAIN, AND LIGHTHEADEDNESS. SKIN COLOR PINK. IV INTACT AND PATENT, NO REDNESS/SWELLING/PAIN TO SITE. WALKER WITHIN REACH. BED AT LOWEST POSITION & CALL LIGHT IN REACH.
--- NOTE | 2017-03-11 16:06 | NUR ---
ROUNDING: PT WAS WALKING AROUND UNIT WITH WALKER, GAIT STABLE. BACK IN BED WITH HOB ELEVATED. PT ON 2L O2 NC. NO ACUTE SIGNS OF RESP DISTRESS. DENIES SOB AND DIZZINESS. SKIN COLOR PINK. IV INTACT, NO REDNESS/SWELLING. WALKER WITHIN REACH. BED AT LOWEST POSITION, CALL LIGHT IN REACH.
[2017-03-11 17:55] VITALS: BP_SYST 112
[2017-03-11] MEDS: RIVAROXABAN 10 MG TABLET PO SCH (18:24)
[2017-03-11] MEDS: AZITHROMYCIN 500 MG in NS 250 ML IV SCH (18:26)
--- NOTE | 2017-03-11 18:30 | NUR ---
CLOSING NOTE: PT SITTING UP IN BED, EATING DINNER AND WATCHING TV. NO ACUTE SIGNS OF RESP DISTRESS. DENIES SOB, CHEST PAIN, DIZZINESS. SKIN WARM DRY AND COLOR PINK. IV INTACT AND PATENT, NO REDNESS/SWELLING/PAIN TO SITE. WALKER WITHIN REACH. BED AT LOWEST POSITION, CALL LIGHT IN REACH. MEDS GIVEN PER MD ORDERS, PT TOLERATED WELL. WILL ENDORSE PLAN OF CARE TO NAI REEDER.
[2017-03-11 19:30] VITALS: BP_SYST 100
--- NOTE | 2017-03-11 19:30 | NUR ---
INITIAL NOTE Patient resting on the bed. No acute distress. Respiration even and unlabored. On O2 2l/min via NC. AO x 4. Denied of pain. Skin warm and dry to touch. IV intact to LFA, no redness, no swelling, no drainage. On Zithromax IVPB infusing well. Discussed the safety issue, use call light when need help, and plan of care, verbally understanding. Safety measure maintained. Bed in low position, side rails up. Call light within reached. Will continue to monitor.
--- NOTE | 2017-03-11 21:18 | NUR ---
PATIENT AMBULATING IN THE HALLWAY WITH WALKER.
--- NOTE | 2017-03-11 23:20 | NUR ---
ROUND Patient resting on the bed with eyes closed. No acute distress. Respiration even and unlabored. Continue on O2 2L/min via NC. Safety measure maintained. Bed in low position, side rails up. Call light within reached. Continue to monitor.
[2017-03-12] VITALS: BP_SYST 108
[2017-03-12] MEDS: ALBUTEROL SULFATE 0.083% 2.5 MG/3 ML VIAL.NEB INH SCH ×3 (01:00→13:10)
[2017-03-12] MEDS: IPRATROPIUM BROM 0.5 MG/2.5 ML VIAL.NEB (ATROVENT) INH SCH ×3 (01:00→13:10)
--- NOTE | 2017-03-12 01:25 | NUR ---
ROUND Patient resting on the bed with eyes closed. Respiration even and unlabored. No acute distress. Bed in low position, side rails up. Call light within reached. Continue to monitor.
[2017-03-12] MEDS: BUDESONIDE 0.5 MG/2 ML AMPUL.NEB INH SCH ×2 (02:21→07:00)
[2017-03-12] MEDS: ACETAMINOPHEN 325 MG TABLET PO PRN ×2 (03:11→10:23)
--- NOTE | 2017-03-12 03:17 | NUR ---
TYLENOL GIVEN Patient c/o headache 10/23, Tylenol 650mg given as ordered. No acute distress. Continue on O2 2L/min via NC. Safety measure maintained. Bed in low position, side rails up. Call light within reached. Continue to monitor.
[2017-03-12 04:36] VITALS: BP_SYST 104
--- NOTE | 2017-03-12 05:15 | NUR ---
ROUND Patient resting on the bed with eyes closed. Respiration even and unlabored. No acute distress. Continue on O2 2L/min via NC. Safety measure maintained. Bed in low position, side rails up. Call light within reached. Continue to monitor.
[2017-03-12] MEDS: methylPREDNISolone SOD SUCC/PF 62.5 MG/ML VIAL IVP SCH (05:39)
--- NOTE | 2017-03-12 06:56 | NUR ---
CLOSING NOTE Patient resting on the bed. No acute distress. Respiration even and unlabored. On O2 2L/min via NC. Skin warm and dry to touch. SL intact to LFA, no redness, no swelling. All needs met. Hourly rounding during shift. Safety measure maintained. Bed in low position, side rails up. Call light within reached. Will endorse to morning shift nurse.
[2017-03-12 08:00] VITALS: BP_SYST 113
--- NOTE | 2017-03-12 08:00 | NUR ---
OPENING NOTES. PT IN BED, PT IS AAOX4, . PT HAS NO PAIN, NO SOB. NO DISTRESS. VITALS WNL. SL ON L FA #22, PATENT AND INTACT. ENCOURAGED TO CALL FOR ASSIST AND PAIN MED. CALL LIGHT IN REACH, BED IN LOWEST POSITION. WILL CONT TO MONITOR.
[2017-03-12] MEDS: LISINOPRIL 10 MG TABLET (PRINIVIL) PO SCH (08:58)
[2017-03-12] MEDS: cefTRIAXone 1 GM IVPB PREMIX 50 ML IV SCH (08:58)
--- NOTE | 2017-03-12 10:17 | NUR ---
ROUNDING NOTES, PT IN BED, PT C/O PAIN, HEADACHE 04/25. NO SOB. NO DISTRESS. TYLENOL WILL BE GIVEN. CALL LIGHT IN REACH, BED IN LOWEST POSITION. WILL CONT TO MONITOR.
[2017-03-12 10:50] LABS: BLOOD GAS BASE EXCESS 1.3 mmol/L (-3.0-3.0); BLOOD GAS PH 7.458 (7.350-7.450)
[2017-03-12 10:51] LABS: ABG TOTAL HEMOGLOBIN 13.4 G/dL (12.0-18.0); BLOOD GAS COHb% 0.5 % (0.5-1.5); BLOOD O2Hb% 89.3 % (94.0-97.0)
--- NOTE | 2017-03-12 12:00 | NUR ---
ROUNDING NOTES; PT IN BED, DENIES PAIN, NO SOB, NO DISTRESS. PT AWARE OF DC HOME ORDER. TOLD HER THAT ROLL SCALE MAN IS BEING PAGE TO GET FINAL DC HOME ORDER AFTER REVIEW OF ABD.
[2017-03-12 12:09] VITALS: BP_SYST 127
--- NOTE | 2017-03-12 12:48 | NUR ---
TODAY'S ABG RESULT REVIEWED WITH DR LANCE MD OKAYED TO DC HOME PT.
[2017-03-12 13:42] VITALS: BP_SYST 127
[2017-03-12] MEDS ORDERED: METH4TAB3 PO (13:53)
[2017-03-12] MEDS ORDERED: AMOX-426 PO (13:54)
--- NOTE | 2017-03-12 15:03 | NUR ---
D/C Patient Patient given medication reconciliation form and TRANSITION CARE instructions IN TRANSITION CARE PACKET. Exit Care provided. Patient verbalized understanding. MD discussed with patient the results and treatment provided. Ambulatory with steady gait for discharge to home. Patient in stable condition, ID band removed. IV catheter removed, intact and dressing applied, no active bleeding. Rx of MEDROL AND AUGMENTIN given. Patient educated on pain management AND ASTHMA. All belongings sent with patient.
== END 2017-03-12 14:37 | disposition home or self-care (01) | DRG 189 ==
LOC: SED 12:00 → STU 15:11 → SMU 03-11 15:00
PROVIDERS: ADMIT Internal Medicine Hospice and Palliative Medicine; ATTEND Internal Medicine Hospice and Palliative Medicine
DX: J96.01 Acute respiratory failure with hypoxia (principal); J44.1 Chronic obstructive pulmonary disease with (acute) exacerbation; J45.901 Unspecified asthma with (acute) exacerbation; I82.402 Acute embolism and thrombosis of unspecified deep veins of left lower extremity; G62.9 Polyneuropathy, unspecified; I10 Essential (primary) hypertension; Z60.2 Problems related to living alone; Z79.01 Long term (current) use of anticoagulants; Z86.718 Personal history of other venous thrombosis and embolism; Z88.1 Allergy status to other antibiotic agents
CPT/HCPCS: 36415; 36600; 71010; 80053; 82803-TC; 83605; 84484; 85007; 85027; 87040-TC; 93005; 94640; 94760; 96365; 96375; 99285; J0456; J0696; J2930; J7040; J7050; J7512

== ENCOUNTER 2017-03-21 04:00 | Inpatient (IN) | payer BC ==
[~2017-03-21] VITALS: Ht 160 cm; Wt 35.8 kg
[2017-03-21] VITALS (8 sets, daily range): BP systolic 115–148
[~2017-03-21 04:00] MED LIST changes: -ACET-1010 PO; +AMOX-426 PO; -BUDE6HFA INH; -DOXY100T2 PO; -LORA-258 PO; +METH4TAB3 PO; +MOME13HF2 INH; -medrol pack PO
[2017-03-21] MEDS ORDERED: LISI10TA5 PO (06:53)
[2017-03-21] MEDS ORDERED: MED4 PO (06:53)
[2017-03-21] MEDS ORDERED: RIVA20TA PO (06:53)
[2017-03-21] MEDS ORDERED: MOME13HF2 INH (06:53)
[2017-03-21] MEDS ORDERED: ALBUTEROL SULFATE 0.083% 2.5 MG/3 ML VIAL.NEB INH PRN (13:30)
[2017-03-21] MEDS ORDERED: ACETAMINOPHEN/CODEINE 300 MG-30 MG TABLET PO PRN (14:00)
[2017-03-21] MEDS ORDERED: FLUTICASONE/VILANTEROL 1 EACH BLST.W.DEV INH SCH (14:00)
[2017-03-21] MEDS: BUDESONIDE 0.5 MG/2 ML AMPUL.NEB INH SCH ×2 (14:00→19:00)
[2017-03-21] MEDS ORDERED: LISINOPRIL 5 MG TABLET PO ONE (14:00)
[2017-03-21] MEDS ORDERED: traMADol HCL HCL 50 MG TABLET (ULTRAM) PO PRN (14:00)
[2017-03-21 14:10] LABS: BASOPHILS # (AUTO) 0.1 K/uL (0.0-0.2); BASOPHILS % (AUTO) 0.6 % (0.0-2.0); EOSINOPHILS # (AUTO) 0.8 K/uL (0.0-0.4); EOSINOPHILS % (AUTO) 7.7 % (0.0-4.0); HEMOGLOBIN 11.7 g/dL (12.0-16.0); LYMPHOCYTES # (AUTO) 2.4 K/uL (1.0-5.5); LYMPHOCYTES % (AUTO) 23.3 % (20.5-51.5); MEAN CORPUSCULAR HEMOGLOBIN 29 pg (27-31); MEAN CORPUSCULAR HGB CONC 33 % (32-36); MEAN CORPUSCULAR VOLUME 89 fL (79.0-98.0); MONOCYTES # (AUTO) 0.7 K/uL (0.0-1.0); MONOCYTES % (AUTO) 6.6 % (1.7-9.3); NEUTROPHILS # (AUTO) 6.4 K/uL (1.8-7.7); NEUTROPHILS % (AUTO) 61.8 % (40.0-70.0); PLATELET COUNT (AUTO) 289 K/uL (130-430); RED BLOOD CELL COUNT(AUTO) 4.04 MIL/uL (4.2-6.2); RED CELL DISTRIBUTION WIDTH 14.7 % (9.0-15.0); WHITE BLOOD COUNT (AUTO) 10.4 K/uL (4.8-10.8)
[2017-03-21 14:14] LABS: CREATININE 0.9 mg/dL (0.55-1.30); POTASSIUM 3.4 mmol/L (3.5-5.1)
[2017-03-21] MEDS: ALBUTEROL SULFATE 0.083% 2.5 MG/3 ML VIAL.NEB INH PRN (20:00)
[2017-03-21] MEDS: methylPREDNISolone 4 MG TABLET PO SCH (20:52)
[2017-03-21] MEDS: ENOXAPARIN SODIUM 40 MG/0.4 ML SYRINGE SUBCUT SCH ×2 (20:52→20:59)
[2017-03-21] MEDS ORDERED: MAG-AL HYDROX/SIMETH 30 ML UDC PO PRN (22:00)
[2017-03-21] MEDS ORDERED: ACETAMINOPHEN 650 MG/20.3 ML UDC PO PRN (22:00)
[2017-03-21] MEDS ORDERED: ACETAMINOPHEN 325 MG TABLET PO PRN (22:30)
[2017-03-21] MEDS ORDERED: ACETAMINOPHEN 325 MG TABLET ONE (22:39)
[2017-03-22 00:11] VITALS: BP_SYST 125
[2017-03-22 03:58] VITALS: BP_SYST 132
[2017-03-22 06:54] LABS: BASOPHILS # (AUTO) 0.1 K/uL (0.0-0.2); BASOPHILS % (AUTO) 0.6 % (0.0-2.0); EOSINOPHILS # (AUTO) 0.7 K/uL (0.0-0.4); EOSINOPHILS % (AUTO) 6.9 % (0.0-4.0); HEMATOCRIT 37.8 % (36-48); HEMOGLOBIN 12.4 g/dL (12.0-16.0); LYMPHOCYTES % (AUTO) 20.1 % (20.5-51.5); MEAN CORPUSCULAR HEMOGLOBIN 29 pg (27-31); MEAN CORPUSCULAR HGB CONC 33 % (32-36); MEAN CORPUSCULAR VOLUME 90 fL (79.0-98.0); MONOCYTES # (AUTO) 0.5 K/uL (0.0-1.0); MONOCYTES % (AUTO) 4.7 % (1.7-9.3); NEUTROPHILS # (AUTO) 6.6 K/uL (1.8-7.7); NEUTROPHILS % (AUTO) 67.7 % (40.0-70.0); PLATELET COUNT (AUTO) 273 K/uL (130-430); RED BLOOD CELL COUNT(AUTO) 4.22 MIL/uL (4.2-6.2); RED CELL DISTRIBUTION WIDTH 14.5 % (9.0-15.0); WHITE BLOOD COUNT (AUTO) 9.9 K/uL (4.8-10.8)
[2017-03-22 06:56] LABS: INR 0.9 (0.8-1.2); PROTHROMBIN TIME 10.2 SECS (9.5-12.5)
[2017-03-22] MEDS: BUDESONIDE 0.5 MG/2 ML AMPUL.NEB INH SCH (07:00)
[2017-03-22 07:43] LABS: ALBUMIN 2.8 g/dL (3.4-4.8); CALCIUM 8.3 mg/dL (8.4-11.0); CREATININE 0.46 mg/dL (0.55-1.30); POTASSIUM 3.8 mmol/L (3.5-5.1); TOTAL BILIRUBIN 0.8 mg/dL (0.0-1.0); TOTAL PROTEIN, SERUM 6.3 g/dL (6.4-8.3)
[2017-03-22 08:00] VITALS: BP_SYST 125
[2017-03-22] MEDS: methylPREDNISolone 4 MG TABLET PO SCH ×2 (09:00→09:05)
[2017-03-22] MEDS ORDERED: LISINOPRIL 5 MG TABLET PO SCH (09:00)
[2017-03-22] MEDS ORDERED: PANTOPRAZOLE SODIUM 40 MG TAB PO SCH (09:00)
[2017-03-22 11:46] VITALS: BP_SYST 132
[2017-03-22] MEDS ORDERED: BECLOMETHASONE INH SCH (13:00)
[2017-03-22] MEDS ORDERED: ONDANSETRON HCL 4 MG/2 ML VIAL IVP PRN (15:00)
[2017-03-22 16:29] VITALS: BP_SYST 130
[2017-03-22 16:52] VITALS: BP_SYST 130
[2017-03-22] MEDS: ALBUTEROL SULFATE 0.083% 2.5 MG/3 ML VIAL.NEB INH PRN (18:48)
[2017-03-22] MEDS ORDERED: CALCIUM 500 MG/TAB PO SCH (21:00)
== END 2017-03-22 19:00 | DRG 542 ==
LOC: SED 04:00 → SMU 06:56
DX: M80.062A Age-related osteoporosis with current pathological fracture, left lower leg, initial encounter for fracture (principal); E43 Unspecified severe protein-calorie malnutrition; R64 Cachexia; D68.59 Other primary thrombophilia; I10 Essential (primary) hypertension; J44.9 Chronic obstructive pulmonary disease, unspecified; Z86.718 Personal history of other venous thrombosis and embolism; Z79.52 Long term (current) use of systemic steroids; Z88.1 Allergy status to other antibiotic agents; Z88.8 Allergy status to other drugs, medicaments and biological substances; Z79.899 Other long term (current) drug therapy; M80.072A Age-related osteoporosis with current pathological fracture, left ankle and foot, initial encounter for fracture
CPT/HCPCS: 36415; 80048; 80053; 85025; 85610-TC; 85730-TC; 87081; 94640; 94760; 97530-GP; 99285; J1650; J7509

== ENCOUNTER 2017-11-06 13:12 | Inpatient (IN) | payer BC ==
[~2017-11-06] VITALS: Ht 165.1 cm; Wt 44.9 kg
[~2017-11-06 13:12] MED LIST changes: +LISI10TA5 PO; +MED4 PO
[2017-11-06 13:17] VITALS: BP_SYST 152
[2017-11-06 13:45] LABS: HEMATOCRIT 42.2 % (36-48); HEMOGLOBIN 13.6 g/dL (12.0-16.0); MEAN CORPUSCULAR HEMOGLOBIN 28 pg (27-31); MEAN CORPUSCULAR HGB CONC 32 % (32-36); MEAN CORPUSCULAR VOLUME 86 fL (79.0-98.0); PLATELET COUNT (AUTO) 259 K/uL (130-430); RED BLOOD CELL COUNT(AUTO) 4.89 MIL/uL (4.2-6.2); RED CELL DISTRIBUTION WIDTH 14.5 % (9.0-15.0); WHITE BLOOD COUNT (AUTO) 9.9 K/uL (4.8-10.8)
[2017-11-06] MEDS ORDERED: ALBUTEROL SULFATE 0.083% 2.5 MG/3 ML VIAL.NEB IH ONE ×2 (13:45→14:45)
[2017-11-06] MEDS ORDERED: IPRATROPIUM BROM 0.5 MG/2.5 ML VIAL.NEB (ATROVENT) IH ONE ×2 (13:45→14:45)
[2017-11-06] MEDS ORDERED: ASPIRIN 81 MG TAB.CHEW PO ONE (13:45)
[2017-11-06] MEDS ORDERED: methylPREDNISolone SOD SUCC/PF 62.5 MG/ML VIAL IVP ONE (13:45)
[2017-11-06 13:47] LABS: CALCIUM 9.3 mg/dL (8.4-11.0); CREATININE 0.7 mg/dL (0.55-1.30); POTASSIUM 3.8 mmol/L (3.5-5.1)
[2017-11-06 13:52] LABS: ALBUMIN 3.4 g/dL (3.4-4.8); TOTAL BILIRUBIN 0.8 mg/dL (0.0-1.0)
[2017-11-06 14:07] LABS: ATYPICAL LYMPHOCYTES % 0 % (0-0); BAND % (MANUAL) 0 % (0-6); LYMPHOCYTES % (MANUAL) 15 % (20-46)
[2017-11-06 14:08] LABS: BASOPHILS % (MANUAL) 0 % (0-2); EOSINOPHILS % (MANUAL) 10 % (0-7); MONOCYTES % (MANUAL) 5 % (0-11)
[2017-11-06] MEDS ORDERED: MOME13HF2 INH (15:39)
[2017-11-06 16:26] VITALS: BP_SYST 141
[2017-11-06] MEDS ORDERED: cefTRIAXone 1 GM in D5W 50 ML IV ONE (16:45)
[2017-11-06 17:01] VITALS: BP_SYST 141
[2017-11-06 17:36] VITALS: BP_SYST 141
[2017-11-06 20:15] VITALS: BP_SYST 89
[2017-11-06] MEDS: ALBUTEROL SULFATE 0.083% 2.5 MG/3 ML VIAL.NEB INH SCH (20:38)
[2017-11-06] MEDS: IPRATROPIUM BROM 0.5 MG/2.5 ML VIAL.NEB (ATROVENT) INH SCH (20:39)
[2017-11-06] MEDS: AZITHROMYCIN 500 MG in NS 250 ML IV SCH (21:20)
[2017-11-06] MEDS: methylPREDNISolone SOD SUCC/PF 62.5 MG/ML VIAL IVP SCH (21:21)
[2017-11-07] MEDS: ALBUTEROL SULFATE 0.083% 2.5 MG/3 ML VIAL.NEB INH SCH ×4 (01:00→19:19)
[2017-11-07] MEDS: IPRATROPIUM BROM 0.5 MG/2.5 ML VIAL.NEB (ATROVENT) INH SCH ×4 (01:00→19:19)
[2017-11-07 01:06] VITALS: BP_SYST 99
[2017-11-07] MEDS: ALBUTEROL SULFATE 0.083% 2.5 MG/3 ML VIAL.NEB INH PRN ×2 (03:03→17:51)
[2017-11-07] MEDS: IPRATROPIUM BROM 0.5 MG/2.5 ML VIAL.NEB (ATROVENT) INH PRN ×2 (03:03→17:51)
[2017-11-07] MEDS: methylPREDNISolone SOD SUCC/PF 62.5 MG/ML VIAL IVP SCH ×3 (05:06→21:04)
[2017-11-07 08:05] VITALS: BP_SYST 121
[2017-11-07] MEDS: cefTRIAXone 1 GM in D5W 50 ML IV SCH (08:44)
[2017-11-07] MEDS: RIVAROXABAN 10 MG TABLET PO SCH (08:45)
[2017-11-07] MEDS: LISINOPRIL 10 MG TABLET (PRINIVIL) PO SCH (08:45)
[2017-11-07 12:22] VITALS: BP_SYST 113
[2017-11-07 16:06] VITALS: BP_SYST 92
[2017-11-07 19:40] VITALS: BP_SYST 101
[2017-11-07] MEDS: AZITHROMYCIN 500 MG in NS 250 ML IV SCH (21:04)
[2017-11-07] MEDS ORDERED: ACETAMINOPHEN 325 MG TABLET PO PRN (23:15)
[2017-11-08 00:34] VITALS: BP_SYST 120
[2017-11-08] MEDS: IPRATROPIUM BROM 0.5 MG/2.5 ML VIAL.NEB (ATROVENT) INH SCH ×3 (01:00→14:50)
[2017-11-08] MEDS: ALBUTEROL SULFATE 0.083% 2.5 MG/3 ML VIAL.NEB INH SCH ×3 (01:00→14:50)
[2017-11-08] MEDS ORDERED: guaiFENesin 200 MG/10 ML UDC PO PRN (04:30)
[2017-11-08] MEDS: methylPREDNISolone SOD SUCC/PF 62.5 MG/ML VIAL IVP SCH ×2 (06:14→14:00)
[2017-11-08 08:20] VITALS: BP_SYST 141
[2017-11-08] MEDS: LISINOPRIL 10 MG TABLET (PRINIVIL) PO SCH (09:29)
[2017-11-08] MEDS: RIVAROXABAN 10 MG TABLET PO SCH (09:29)
[2017-11-08] MEDS: cefTRIAXone 1 GM in D5W 50 ML IV SCH (09:30)
[2017-11-08] MEDS ORDERED: guaiFENesin ER 600 MG TAB PO ONE (10:00)
[2017-11-08 12:05] VITALS: BP_SYST 132
[2017-11-08 15:25] VITALS: BP_SYST 112
[2017-11-08 16:44] VITALS: BP_SYST 132
[2017-11-08] MEDS ORDERED: AMOX-426 PO (16:49)
[2017-11-08] MEDS ORDERED: PRED20TA PO (16:50)
[2017-11-08] MEDS ORDERED: guaiFENesin ER 600 MG TAB PO SCH (21:00)
[2017-11-09 15:12] LABS: A/G RATIO 0.6 (0.7-1.7); ALBUMIN 3.5 g/dL (2.9-4.4); ALPHA-1-GLOBULIN 0.2 g/dL (0.0-0.4); ALPHA-2-GLOBULIN 0.9 g/dL (0.4-1.0); BETA GLOBULIN 1.2 g/dL (0.7-1.3); GAMMA GLOBULIN 3.2 g/dL (0.4-1.8); GLOBULIN, TOTAL 5.5 g/dL (2.2-3.9); M-SPIKE Not Observed g/dL (Not Observed)
== END 2017-11-08 17:15 | disposition home or self-care (01) | DRG 193 ==
LOC: SED 13:12 → STU 16:02 → SMU 11-07 10:11
PROVIDERS: ADMIT Internal Medicine Hospice and Palliative Medicine; ATTEND Internal Medicine Hospice and Palliative Medicine
DX: J18.9 Pneumonia, unspecified organism (principal); J96.01 Acute respiratory failure with hypoxia; J44.0 Chronic obstructive pulmonary disease with (acute) lower respiratory infection; D72.1 Eosinophilia; J45.901 Unspecified asthma with (acute) exacerbation; G62.9 Polyneuropathy, unspecified; I10 Essential (primary) hypertension; F41.9 Anxiety disorder, unspecified; Z79.52 Long term (current) use of systemic steroids; Z87.81 Personal history of (healed) traumatic fracture; Z91.81 History of falling; Z88.8 Allergy status to other drugs, medicaments and biological substances
CPT/HCPCS: 36415; 36600; 71045; 71250-TC; 80053; 82803-TC; 83880; 84155; 84165; 84484; 85007; 85027; 85379; 85610-TC; 85730-TC; 93005; 94640; 94760; 96374; 99285; J0456; J0696; J2930; J7050; J7060

== ENCOUNTER 2017-12-30 16:58 | Inpatient (IN) | payer BC ==
[~2017-12-30] VITALS: Ht 165.1 cm; Wt 42.4 kg
[~2017-12-30 16:58] MED LIST changes: -ALBU2.5V7 INH; -ALBU8.5H8 INH; -LISI5TAB PO; -MED4 PO; -METH4TAB3 PO; -MOME13HF2 INH; +PRED20TA PO; -ROBDM PO
[2017-12-30 17:08] VITALS: BP_SYST 145
[2017-12-30] MEDS ORDERED: VANCOMYCIN HCL 1,000 MG in D5W 250 ML IV ONE (17:30)
[2017-12-30] MEDS ORDERED: PIPERACILLIN/TAZO 3.38 GM in D5W 50 ML IV ONE (17:30)
[2017-12-30] MEDS ORDERED: PIPERACILLIN/TAZOBACTAM 3.375 GM/VIAL (ZOSYN) IV ONE (17:34)
[2017-12-30 18:09] LABS: WHITE BLOOD COUNT (AUTO) 14.1 K/uL (4.8-10.8)
[2017-12-30 18:11] LABS: CALCIUM 8.8 mg/dL (8.4-11.0); CREATININE 0.56 mg/dL (0.55-1.30); POTASSIUM 3.9 mmol/L (3.5-5.1)
[2017-12-30 18:12] LABS: HEMATOCRIT 34.9 % (36-48); HEMOGLOBIN 11.8 g/dL (12.0-16.0); MEAN CORPUSCULAR HEMOGLOBIN 30 pg (27-31); MEAN CORPUSCULAR HGB CONC 34 % (32-36); MEAN CORPUSCULAR VOLUME 88 fL (79.0-98.0); PLATELET COUNT (AUTO) 364 K/uL (130-430); RED BLOOD CELL COUNT(AUTO) 3.98 MIL/uL (4.2-6.2); RED CELL DISTRIBUTION WIDTH 15.2 % (9.0-15.0)
[2017-12-30] MEDS ORDERED: VANCOMYCIN HCL 1000 MG/VIAL IV ONE (18:12)
[2017-12-30 18:16] LABS: ALBUMIN 3.4 g/dL (3.4-4.8); TOTAL BILIRUBIN 0.6 mg/dL (0.0-1.0)
[2017-12-30 18:28] LABS: BASOPHILS % (MANUAL) 0 % (0-2); EOSINOPHILS % (MANUAL) 44 % (0-7); LYMPHOCYTES % (MANUAL) 10 % (20-46); MONOCYTES % (MANUAL) 5 % (0-11)
[2017-12-30 18:34] LABS: PROTHROMBIN TIME 9.7 SECS (9.5-12.5)
[2017-12-30] MEDS ORDERED: METH2TAB PO (19:22)
[2017-12-30] MEDS ORDERED: MOME13HF INH (20:19)
[2017-12-30 20:27] VITALS: BP_SYST 144
[2017-12-31] MEDS: ACETAMINOPHEN 325 MG TABLET PO PRN ×2 (02:59→20:56)
[2017-12-31 03:00] VITALS: BP_SYST 147
[2017-12-31] MEDS ORDERED: ALBUTEROL SULFATE 0.083% 2.5 MG/3 ML VIAL.NEB INH PRN (09:45)
[2017-12-31] MEDS ORDERED: IPRATROPIUM BROM 0.5 MG/2.5 ML VIAL.NEB (ATROVENT) INH PRN (09:45)
[2017-12-31 10:32] VITALS: BP_SYST 147
[2017-12-31 12:13] VITALS: BP_SYST 134
[2017-12-31] MEDS: ALBUTEROL SULFATE 0.083% 2.5 MG/3 ML VIAL.NEB INH SCH ×3 (13:15→20:26)
[2017-12-31] MEDS: IPRATROPIUM BROM 0.5 MG/2.5 ML VIAL.NEB (ATROVENT) INH SCH ×3 (13:15→20:27)
[2017-12-31] MEDS ORDERED: methylPREDNISolone 4 MG TABLET PO ONE (14:15)
[2017-12-31] MEDS ORDERED: ENOXAPARIN SODIUM 40 MG/0.4 ML SYRINGE SUBCUT ONE (14:45)
[2017-12-31 16:25] VITALS: BP_SYST 118
[2017-12-31] MEDS ORDERED: VANCOMYCIN HCL 750 MG in NS 250 ML IV SCH (18:00)
[2017-12-31 20:00] VITALS: BP_SYST 118
[2018-01-01 01:34] VITALS: BP_SYST 120
[2018-01-01] MEDS: ALBUTEROL SULFATE 0.083% 2.5 MG/3 ML VIAL.NEB INH SCH (07:16)
[2018-01-01] MEDS: IPRATROPIUM BROM 0.5 MG/2.5 ML VIAL.NEB (ATROVENT) INH SCH (07:16)
[2018-01-01 08:00] VITALS: BP_SYST 132
[2018-01-01] MEDS ORDERED: methylPREDNISolone 4 MG TABLET PO SCH (09:00)
[2018-01-01] MEDS ORDERED: ENOXAPARIN SODIUM 40 MG/0.4 ML SYRINGE SUBCUT SCH (09:00)
[2018-01-01] MEDS: ACETAMINOPHEN 325 MG TABLET PO PRN (10:08)
[2018-01-01 11:54] VITALS: BP_SYST 132
== END 2018-01-01 12:30 | disposition home or self-care (01) | DRG 191 ==
LOC: SED 16:58 → SMU 18:32
PROVIDERS: ADMIT Internal Medicine Hospice and Palliative Medicine; ATTEND Internal Medicine Hospice and Palliative Medicine
DX: J44.1 Chronic obstructive pulmonary disease with (acute) exacerbation (principal); L03.116 Cellulitis of left lower limb; D72.1 Eosinophilia; G62.9 Polyneuropathy, unspecified; F41.9 Anxiety disorder, unspecified; I10 Essential (primary) hypertension; M21.961 Unspecified acquired deformity of right lower leg; M21.962 Unspecified acquired deformity of left lower leg; Z86.718 Personal history of other venous thrombosis and embolism; Z87.891 Personal history of nicotine dependence; Z79.52 Long term (current) use of systemic steroids; Z79.899 Other long term (current) drug therapy; Z88.1 Allergy status to other antibiotic agents
CPT/HCPCS: 36415; 71045; 80053; 83605; 84484; 85007; 85027; 85610-TC; 85730-TC; 87040-TC; 87081; 93971; 94640; 94760; 96365; 96367; 97110-GP; 97116-GP; 97530-GP; 99285; J1650; J2543; J3370; J7050; J7060; J7509; J7613

== ENCOUNTER 2018-01-21 17:23 | Inpatient (IN) | payer BC ==
[~2018-01-21] VITALS: Ht 160 cm; Wt 38.1 kg
[~2018-01-21 17:23] MED LIST changes: -AMOX-426 PO; -LISI10TA5 PO; +METH2TAB PO; +MOME13HF INH; -PRED20TA PO; -RIVA20TA PO
[2018-01-21 17:28] VITALS: BP_SYST 158
--- NOTE | 2018-01-21 17:28 | NUR ---
Pt to bed 7 ambulatory with walker. Refused gown.
--- NOTE | 2018-01-21 17:28 | NUR ---
Note harvey in ED - 01/21/18 at 1735 by SDEDSTC pPatient to soren 07 to [facility]em[facility] for evaluation. Side rails up.
--- NOTE | 2018-01-21 17:30 | NUR ---
Pt complains of swelling to bilateral extremities for more than 10 days. Pt states she was at the hospital recently for cellulitis of the legs and was discharged with antibiotics. Per pt, swelling has gotten worse and pain has increased. Pt denies vomiting but feels nauseous. Pt also states she has been getting "chills" but is unsure if she had a fever or not. Pt is AAO x 4 and ambulatory with walker. Noted 2+ edema. No other injuries/complaints per patient or noted.
--- NOTE | 2018-01-21 17:32 | NUR ---
VIRGINIA Morales at bedside examining patient.
[2018-01-21] MEDS ORDERED: IPRATROPIUM/ALBUTEROL SULFATE 3 ML AMPUL.NEB INH ONE (18:00)
--- NOTE | 2018-01-21 18:05 | NUR ---
Lab at patient bedside obtaining blood. Pt tolerated well.
--- NOTE | 2018-01-21 18:06 | NUR ---
RT at patient bedside administering breathing treatment. Pt tolerated well.
[2018-01-21 18:30] LABS: HEMATOCRIT 31.5 % (36-48); HEMOGLOBIN 10.7 g/dL (12.0-16.0); MEAN CORPUSCULAR HEMOGLOBIN 29 pg (27-31); MEAN CORPUSCULAR HGB CONC 34 % (32-36); MEAN CORPUSCULAR VOLUME 86 fL (79.0-98.0); PLATELET COUNT (AUTO) 477 K/uL (130-430); RED BLOOD CELL COUNT(AUTO) 3.66 MIL/uL (4.2-6.2); RED CELL DISTRIBUTION WIDTH 14.8 % (9.0-15.0)
[2018-01-21 18:38] LABS: WHITE BLOOD COUNT (AUTO) 36.8 K/uL (4.8-10.8)
[2018-01-21 18:39] LABS: CALCIUM 8.4 mg/dL (8.4-11.0); CREATININE 0.4 mg/dL (0.55-1.30)
--- NOTE | 2018-01-21 18:42 | NUR ---
Dr. Morales at bedside speaking with pt regarding ED results and admission
--- NOTE | 2018-01-21 18:42 | NUR ---
Medication reconciliation completed with information provided by patient. Any prior medication reconciliation on file was reviewed and corrected.
[2018-01-21 18:44] LABS: ALBUMIN 2.7 g/dL (3.4-4.8); TOTAL BILIRUBIN 0.4 mg/dL (0.0-1.0)
[2018-01-21] MEDS ORDERED: PIPERACILLIN/TAZO 3.375 GM in NS 50 ML IV ONE (18:45)
[2018-01-21] MEDS ORDERED: VANCOMYCIN HCL 1,000 MG in NS 250 ML IV ONE (18:45)
[2018-01-21] MEDS ORDERED: NACL 0.9% 1,000 ML IV ONE (18:45)
[2018-01-21 18:47] LABS: BASOPHILS % (MANUAL) 0 % (0-2); EOSINOPHILS % (MANUAL) 74 % (0-7); LYMPHOCYTES % (MANUAL) 8 % (20-46); MONOCYTES % (MANUAL) 1 % (0-11)
[2018-01-21 19:00] LABS: BILIRUBIN,URINE NEGATIVE (NEGATIVE); BLOOD, URINE NEGATIVE (NEGATIVE); CLARITY/URINE CLEAR (CLEAR); COLOR,URINE YELLOW (YELLOW); GLUCOSE,URINE NEGATIVE (NEGATIVE); KETONES,URINE 1+ (NEGATIVE); LEUKOCYTE ESTERASE ,URINE NEGATIVE (NEGATIVE); NITRITE, URINE NEGATIVE (NEGATIVE); PH,URINE 5.5 (5.0-8.0); PROTEIN URINE NEGATIVE (NEGATIVE); UROBILINOGEN,URINE 0.2 (0.2-1.0)
[2018-01-21] MEDS ORDERED: PIPERACILLIN/TAZOBACTAM 3.375 GM/VIAL (ZOSYN) IV ONE ×2 (19:01→19:04)
[2018-01-21] MEDS ORDERED: VANCOMYCIN HCL 1000 MG/VIAL IV ONE (19:01)
--- NOTE | 2018-01-21 19:14 | NUR ---
Patient will be admitted to care of Dr Pearl/Dr Carrillo. Admitted to tele unit. Will go to room 103a. Belongings list completed. Summary report printed. Report will be given at bedside.
--- NOTE | 2018-01-21 19:16 | NUR ---
Transfer to 103a via ACLS protocol. Licensed nurse present. IV present no signs or symptoms of infiltration.
--- NOTE | 2018-01-21 19:23 | NUR ---
ADMISSION NOTE Received patient from ER via mikey, received report from Rudy TRIMBLE. Patient admitted with diagnosis of Sepsis. Patient oriented to hospital routine, call light, toileting and safety-patient verbalized understanding.
[2018-01-21 19:34] VITALS: BP_SYST 147
[2018-01-21] MEDS ORDERED: HYDROcodone/ACETAMIN 5-325 MG TAB (NORCO/ VICODIN) PO PRN (20:15)
[2018-01-21] MEDS ORDERED: ONDANSETRON HCL 4 MG/2 ML VIAL IVP PRN (20:15)
--- NOTE | 2018-01-21 20:30 | NUR ---
Initial RN note Received pt from ED. Pt AAO. VSS. No acute distress noted. Dx Sepsis. Pt is DNR. IV lock L. FA 20G clear, patent. Pt uses walker to bathroom. Derrick feet edematous and erythema noted, L. leg edema 3+ noted. Photo taken and placed in chart. Safety measures in place. Call light within reach. Will continue to monitor.
[2018-01-21] MEDS: methylPREDNISolone SOD SUCC 40 MG/ML VIAL IVP SCH (20:35)
[2018-01-21 20:47] VITALS: BP_SYST 147
--- NOTE | 2018-01-21 21:28 | NUR ---
Assisted to Bathroom Pt walked to bathroom with own walker with ANALYTICAL SCIENCES DIRECTOR assist. No c/o dizziness. Steady, slow gait. Pt voided. Will continue to monitor.
--- NOTE | 2018-01-21 22:50 | NUR ---
Dr. Pearl here to examine pt. Addendum: 01/22/18 at 0804 by Mariana Bethea RN Informed MD of WBC 36.8, dx sepsis, if he wants fluids. Per no, pt has fluid overload.
--- NOTE | 2018-01-21 23:12 | NUR ---
3 CONSULTATIONS (I.D., CARDIO, & PULMO) CALLED REASON FOR CONSULTATION: SEPSIS PNEUMONIA LEFT LEG INFECTION WAS CONSULT CALLED? Y PERSON WHO WAS NOTIFIED: RAYMOND CONSULTING PHYSICIAN: TRINA PETERSEN OCEAN BIOLOGIST SPECIALTY: INFECTIOUS DISEASE OCEAN BIOLOGIST PHONE NUMBER: [phone] ORDERING PHYSICIAN: SIMEON SAHA REASON FOR CONSULTATION: ELEVATED TROPONIN WAS CONSULT CALLED? Y PERSON WHO WAS NOTIFIED: RAJNEDRA CONSULTING PHYSICIAN: JACKI ANDREWS (BAR HOST/HOSTESS FOR MONCHO LONG) OCEAN BIOLOGIST SPECIALTY: ASBESTOS REMOVAL WORKER PHONE NUMBER: [phone] ORDERING PHYSICIAN: SIMEON SAHA REASON FOR CONSULTATION: SHORTNESS OF BREATH COPD WAS CONSULT CALLED? Y PERSON WHO WAS NOTIFIED: RAYMOND CONSULTING PHYSICIAN: CHRISTINA SEXTON OCEAN BIOLOGIST SPECIALTY: PULMONARY DISEASE OCEAN BIOLOGIST PHONE NUMBER: [phone] ORDERING PHYSICIAN: SIMEON SAHA
[2018-01-22 00:22] VITALS: BP_SYST 155
--- NOTE | 2018-01-22 01:10 | NUR ---
Pt refused Lovenox at this time after side effects reviewed.
[2018-01-22] MEDS: ENOXAPARIN SODIUM 40 MG/0.4 ML SYRINGE SUBCUT SCH ×3 (02:50→21:53)
--- NOTE | 2018-01-22 03:25 | NUR ---
Pt refused bed alarm Pt calls for help to the bathroom, pt refused to turn bed alarm. Explained to pt risks/benefit. Call light remains within reach, bed low, locked in position. To monitor.
[2018-01-22 03:48] LABS: CALCIUM 7.9 mg/dL (8.4-11.0); CREATININE 0.55 mg/dL (0.55-1.30); POTASSIUM 3.8 mmol/L (3.5-5.1)
[2018-01-22 03:54] LABS: ALBUMIN 2.8 g/dL (3.4-4.8); PHOSPHORUS 3.6 mg/dL (2.7-4.5); TOTAL BILIRUBIN 0.4 mg/dL (0.0-1.0)
[2018-01-22 04:01] LABS: BASOPHILS # (AUTO) 0.1 K/uL (0.0-0.2); BASOPHILS % (AUTO) 0.4 % (0.0-2.0); EOSINOPHILS # (AUTO) 12.4 K/uL (0.0-0.4); EOSINOPHILS % (AUTO) 69.9 % (0.0-4.0); HEMOGLOBIN 10.7 g/dL (12.0-16.0); LYMPHOCYTES # (AUTO) 0.9 K/uL (1.0-5.5); LYMPHOCYTES % (AUTO) 4.8 % (20.5-51.5); MEAN CORPUSCULAR HEMOGLOBIN 30 pg (27-31); MEAN CORPUSCULAR HGB CONC 34 % (32-36); MEAN CORPUSCULAR VOLUME 86 fL (79.0-98.0); MONOCYTES # (AUTO) 0.1 K/uL (0.0-1.0); MONOCYTES % (AUTO) 0.7 % (1.7-9.3); NEUTROPHILS # (AUTO) 4.3 K/uL (1.8-7.7); PLATELET COUNT (AUTO) 457 K/uL (130-430); RED BLOOD CELL COUNT(AUTO) 3.62 MIL/uL (4.2-6.2); RED CELL DISTRIBUTION WIDTH 14.7 % (9.0-15.0); WHITE BLOOD COUNT (AUTO) 17.8 K/uL (4.8-10.8)
--- NOTE | 2018-01-22 04:11 | NUR ---
PAGED PAGED DOCTOR SAENZ WHO IS TECHNICAL STAFF ASSISTANT FOR DOCTOR CRUZ
--- NOTE | 2018-01-22 04:20 | NUR ---
Critical Troponin Elevated Troponin received from lab 0.891 at 0402. Spoke and informed Dr. Contreras sap pp consultant for Dr. Carranza at 0420. No orders received.
[2018-01-22 05:08] LABS: NEUTROPHILS % (AUTO) 24.2 % (40.0-70.0)
[2018-01-22] MEDS: methylPREDNISolone SOD SUCC 40 MG/ML VIAL IVP SCH ×3 (05:53→21:53)
[2018-01-22] MEDS: PIPERACILLIN/TAZO 4.5GM/DEX-IS 100 ML IV SCH ×3 (07:36→21:54)
--- NOTE | 2018-01-22 07:40 | NUR ---
Closing note Pt alert, awake. IV abx Zosyn just rec'd from pharmacy, administered as ordered. Pt educated for s/s of allergic rxn to call nurse immediately. Pt verbalized understanding. Call light within reach. Endorsed to am nurse.
[2018-01-22 08:16] VITALS: BP_SYST 110
--- NOTE | 2018-01-22 08:17 | NUR ---
Opening note Pt ALOC x 4 w/ no s/s of SOB or distress, no c/o pain or discomfort. C/O not sleeping well due to interruptions at night and she requested a menu for the day so that the kitchen dose not bring any unwanted menu items. Pt refuses bed alarm, reviewed safety precautions and call system, pt is ambulatory with walker but agrees to call for assistance to the restroom.
[2018-01-22] MEDS: ASPIRIN 325 MG TABLET (ECOTRIN) PO SCH (09:00)
[2018-01-22] MEDS ORDERED: FUROSEMIDE 20 MG/2 ML VIAL IVP SCH (09:00)
--- NOTE | 2018-01-22 09:30 | NUR ---
Pt education/Pt refused medications Pt refused morning medications (asparin and lasix). Educated pt about indications, mode of action, side effects and benefits. Pt continued to refused. Invited patient to continue to ask questions about care and medications as she thinks of them.
[2018-01-22 11:15] VITALS: BP_SYST 91
[2018-01-22] MEDS: IPRATROPIUM BROM 0.5 MG/2.5 ML VIAL.NEB (ATROVENT) INH PRN ×2 (11:36→17:02)
[2018-01-22] MEDS: ALBUTEROL SULFATE 0.083% 2.5 MG/3 ML VIAL.NEB INH PRN ×2 (11:36→17:02)
--- NOTE | 2018-01-22 12:15 | NUR ---
Rounding Pt reports breathing much easier after breathing treatment. sitting at bedside eating lunch. no s/s of SOB or distress, no c/o pain or discomfort. Will monitor.
--- NOTE | 2018-01-22 12:53 | NUR ---
Dietitian Recommendations *Recommend continuing regular diet per MD orders. *Encourage pt to increase food intake. *Recommend: consider alternate route of nutrition support if PO intake does not improve. Please see Nutritional Assessment for details. ASAF, MORE
[2018-01-22] MEDS: IPRATROPIUM/ALBUTEROL SULFATE 3 ML AMPUL.NEB INH SCH ×2 (13:00→19:53)
--- NOTE | 2018-01-22 14:14 | NUR ---
Rounding Pt ambulating with KARATE TEACHER in hallway, no s/s of SOB or distress, no c/o pain or discomfort, no difficulty in ambulating.
[2018-01-22 15:09] VITALS: BP_SYST 100
--- NOTE | 2018-01-22 16:23 | NUR ---
Jose Manuel Pt assisted to restroom and back to bed, seen by Dr Vera. Received a breathing treatment. Report no pain or but feet and lower extremities hurt when ambulating in socks instead of shoes. Pt again refuses bed alarm but agrees to call for assistance, call light is within reach.
--- NOTE | 2018-01-22 18:53 | NUR ---
Closing note Pt ALOCx4, no s/s of SOB or distress though pt has needed PRN breathing treatments administered today. Pt has no c/o pain. Pt resting in bed but easily aroused to voice. Safety and fall precautions in place although pt refuses bed alarm again. Will give report and endorse pt care to NOC shift nurse.
--- NOTE | 2018-01-22 19:55 | NUR ---
Opening note Pt alert, awake. VSS, O2 sat 93% on NC 2L with humidifier. Pt states pain on L. leg but tolerable at this time. Derrick legs elevated on pillow. Saline lock L. FA 20G clear, patent. Call light remains within reach. To monitor.
[2018-01-22 20:00] VITALS: BP_SYST 113
[2018-01-22] MEDS ORDERED: VANCOMYCIN HCL 500 MG in NS 100 ML IV SCH (21:00)
--- NOTE | 2018-01-22 21:45 | NUR ---
Rounds/med pass Pt awake. No s/s distress noted. Pt assisted to the bathroom with walker. No c/o dizziness. Call light within reach. To monitor.
--- NOTE | 2018-01-22 22:00 | NUR ---
Pain mgmt Pt c/o headache, medicated with Tylenol 2 tabs PO as needed. Call light within reach. Will continue to monitor.
[2018-01-22] MEDS: ACETAMINOPHEN 325 MG TABLET PO PRN (22:02)
[2018-01-22] MEDS ORDERED: *LOVENOX 1MG/KG Q24H/PHARMACY XX PRN (23:00)
[2018-01-23] VITALS (7 sets, daily range): BP systolic 126–157
--- NOTE | 2018-01-23 00:45 | NUR ---
Rounds Pt coughing on/off. Pt having breathing txmt. Call light within reach. Will continue to monitor.
--- NOTE | 2018-01-23 02:15 | NUR ---
Rounds Pt asleep on her left side. No s/s distress noted. Call light within reach. Bed low and locked. Will continue to monitor pt.
--- NOTE | 2018-01-23 05:05 | NUR ---
Rounds Pt ambulated to the bathroom with walker. Pt coughs, solumedrol IVP given as ordered. Will continue to mointor.
[2018-01-23] MEDS: methylPREDNISolone SOD SUCC 40 MG/ML VIAL IVP SCH ×3 (05:27→20:56)
--- NOTE | 2018-01-23 05:35 | NUR ---
CXRay at bedside.
[2018-01-23] MEDS: PIPERACILLIN/TAZO 4.5GM/DEX-IS 100 ML IV SCH ×3 (06:00→20:55)
--- NOTE | 2018-01-23 06:30 | NUR ---
Closing note Pt asleep, arousable. Pt c/o headache, but refused Tylenol and Cecil for pain. Offered pt cold pack. Pt also c/o R. abdominal "bubble pain" that pt states started right before they took the chest xray this am. IV antibiotic infusing L. FA 20G, clear and patent. Call light within reach. Safety measures in place. To endorse to am nurse.
[2018-01-23 06:38] LABS: ALBUMIN 2.7 g/dL (3.4-4.8); CALCIUM 8.5 mg/dL (8.4-11.0); CREATININE 0.54 mg/dL (0.55-1.30); POTASSIUM 4.3 mmol/L (3.5-5.1); TOTAL BILIRUBIN 0.3 mg/dL (0.0-1.0)
[2018-01-23 06:57] LABS: BASOPHILS % (AUTO) 0.2 % (0.0-2.0); EOSINOPHILS # (AUTO) 0.3 K/uL (0.0-0.4); HEMATOCRIT 29.2 % (36-48); HEMOGLOBIN 9.7 g/dL (12.0-16.0); LYMPHOCYTES % (AUTO) 5.7 % (20.5-51.5); MEAN CORPUSCULAR HEMOGLOBIN 29 pg (27-31); MEAN CORPUSCULAR HGB CONC 33 % (32-36); MEAN CORPUSCULAR VOLUME 87 fL (79.0-98.0); MONOCYTES # (AUTO) 0.8 K/uL (0.0-1.0); MONOCYTES % (AUTO) 4.8 % (1.7-9.3); NEUTROPHILS % (AUTO) 87.3 % (40.0-70.0); PLATELET COUNT (AUTO) 429 K/uL (130-430); RED BLOOD CELL COUNT(AUTO) 3.38 MIL/uL (4.2-6.2); RED CELL DISTRIBUTION WIDTH 14.7 % (9.0-15.0); WHITE BLOOD COUNT (AUTO) 17.1 K/uL (4.8-10.8)
[2018-01-23] MEDS: IPRATROPIUM/ALBUTEROL SULFATE 3 ML AMPUL.NEB INH SCH ×3 (07:05→19:32)
[2018-01-23] MEDS ORDERED: methylPREDNISolone SOD SUCC 40 MG/ML VIAL IVP ONE (08:00)
[2018-01-23] MEDS ORDERED: COMMUNICATION ORDER XX ONE (08:00)
[2018-01-23] MEDS ORDERED: FAMOTIDINE PF 20 MG/2 ML VIAL ONE (08:02)
[2018-01-23] MEDS ORDERED: methylPREDNISolone SOD SUCC 40 MG/ML VIAL ONE (08:03)
--- NOTE | 2018-01-23 08:03 | NUR ---
PULMO MD DR LUCAS WAS CALLED RE: INTENSE COUGHING . SPOKE TO MARY.
[2018-01-23] MEDS ORDERED: LORazepam 2 MG/ML VIAL ONE (08:07)
[2018-01-23] MEDS ORDERED: LORazepam 2 MG/ML VIAL IVP ONE (08:15)
[2018-01-23] MEDS ORDERED: FAMOTIDINE PF 20 MG/2 ML VIAL IVP ONE (08:15)
--- NOTE | 2018-01-23 08:32 | NUR ---
Opening note/Following Rapid response Pt was found by charge w/ accessory breathing and reapid was called. Pt given solumedrol, pepcid and ativan ordered by Dr Foster on the unit. Physician had seen pt earlier in rounds. Mask was applied by RT. O2 Sat did not drop below 90%. Pt returned to bed post response, with improved vital signs, will continue to monitor.
[2018-01-23] MEDS: ASPIRIN 325 MG TABLET (ECOTRIN) PO SCH (09:08)
--- NOTE | 2018-01-23 10:05 | NUR ---
Rounding pt resting in bed, no s/s of SOB or distress, no c/o pain. Easily aroused to voice, but says she is tired from the morning and not being able to breathe when rapid response was called.
--- NOTE | 2018-01-23 11:46 | NUR ---
Rounding Pt resting, easily aroused to voice, indicates that she would like to continue to "rest a while." No s/s of SOB or distress, no c/o pain or discomfort. Pt refused bed alarm but agrees to call for assistance to go to restroom or ambulate.
--- NOTE | 2018-01-23 14:10 | NUR ---
Rounding Pt resting, no s/s of SOB or distress. Breathing even and unlabored. Pt left undisturbed.
--- NOTE | 2018-01-23 16:30 | NUR ---
Rounding Pt assisted to and from restroom. pt coughing but refuses call to RT for breathing treatment. Has only had one this morning. Pt indicates she is afraid that bronchospasms may start. Pt educated and will continue to monitor and encourage treatments as needed.
[2018-01-23] MEDS: IPRATROPIUM BROM 0.5 MG/2.5 ML VIAL.NEB (ATROVENT) INH PRN (17:24)
[2018-01-23] MEDS: ALBUTEROL SULFATE 0.083% 2.5 MG/3 ML VIAL.NEB INH PRN (17:24)
--- NOTE | 2018-01-23 18:47 | NUR ---
Closing note Pt sitting in bed, no s/s of SOb or distress, no c/o pain or discomfort at this time. Pt ALOC x4, pt again refuses bed alarm. Bed and safety check completed, will endorse care and give report to NOC shift nurse.
--- NOTE | 2018-01-23 19:15 | NUR ---
change of shift.pt.presents general stable status.respiratory status;labored.pt.receiving o2 therapy @ 2l/min via nasal cannulae.pt.activity status;oob;as tolerated utilizing assist device;walker.iv access lock. to assess the o2 sat%.
--- NOTE | 2018-01-23 20:00 | NUR ---
pt.assessed.v/s assessed;values w/in normal limits.no c/o pain,nausea.pt.repositioned.general status stable absent distress/discomfort.respiratory status;labored:02 sat%=96%@ 2l/min via nasal cannulae.pt.requested assistance to the restroom;pt./ambulates w/ assist device;walker.pt.assisted to return to bed.i have apprise the pt.that snacks are available w/in the shift.pt.presents no requests@ this hour.call light/telephone placed w/in the pt's reach.
[2018-01-23] MEDS: ENOXAPARIN SODIUM 40 MG/0.4 ML SYRINGE SUBCUT SCH (20:47)
--- NOTE | 2018-01-23 21:00 | NUR ---
2100p medications administered.i have administered solumedrol,zosyn:2200p scheduled medications @this hour per the pt';s requests to facilitate sleep.i have [id number] the lovenox;40mg sq abdomen:pt.had assumed the medication was administered @0900a.i reviewed the emar;the dose is scheduled q-24hrs and was administered @2100p;01/22/18.pt.aquiest and received the administration of the medication.pt.requested soda;i provided the soda.call light/telephone placed w/in the pt's reach.
[2018-01-23] MEDS: ACETAMINOPHEN 325 MG TABLET PO PRN (21:55)
--- NOTE | 2018-01-23 22:00 | NUR ---
pt.assessed.pt.repositioned.pt.presents quiescent affect;calm,somnolent.general status stable absent distress/discomfort.respiratory status labored:cough episodes;slight.no requests@this hour.i have removed ns-iv fluids tko s/p administration zosyn:abx;ivpb.call ligth/telephone placed w/in the pt's reach.
--- NOTE | 2018-01-24 | NUR ---
pt.assessed.v/s assessed.values w/in normal limits.pt.has requested assistance to the restroom;pt.utilizing the assist device:walker.pt.assisted return to bed.pt.presents coughing spams.i inquired if the pt.requests medication for the cough the pt.stated no she is fine.no c/o pain,nausea.no requests@this hour.call light/telephone placed w/in the pt's reach.
[2018-01-24] MEDS: IPRATROPIUM/ALBUTEROL SULFATE 3 ML AMPUL.NEB INH SCH ×4 (00:31→19:50)
--- NOTE | 2018-01-24 02:00 | NUR ---
pt.assessed.pt.repositioned.pt.presents quiescent affect;calm,somnolent.general status stable absent distress/discomfort.respiratory status labored;call light/telephone placed w/in the pt's reach.
--- NOTE | 2018-01-24 02:30 | NUR ---
pt.requested assistance.o2 nasal cannulae fell to the floor.nasal cannulae replaced.no further requests @this hour.
--- NOTE | 2018-01-24 04:00 | NUR ---
pt.assessed.i was in the process of pt.assessment.i encountered the pt.in the restroom alone/unaccompanied. i reiterated to the pt.to call;to avoid fall scenario.pt.stated she will call nsg for assistance.i accompanied the pt. return to bed.pt.repositioned.no requests@this hour.general status stable.absent distress/discomfort.respiratory status labored.i ahve provided blankets;warmed to the pt.call light/telephone placed w/in the pt's reach.
[2018-01-24] MEDS: PIPERACILLIN/TAZO 4.5GM/DEX-IS 100 ML IV SCH ×2 (06:23→13:55)
[2018-01-24] MEDS: methylPREDNISolone SOD SUCC 40 MG/ML VIAL IVP SCH ×3 (06:24→21:24)
--- NOTE | 2018-01-24 06:45 | NUR ---
pt.assessed.pt.presents general status stable.respiratory status pattern/character;labored.i have administered the 0600a medications;solumedrol/zosyn;abx;ivpb.pt.had requested the room lights off i have attended to the pt's requests.no further requests@this hour.no c/o pain/nausea.i have reiterated to the pt.to call for assistance to the restroom:pt.stated she would call nsg for assistance. call light/telephone placed w/in the pt's reach.
[2018-01-24 06:58] LABS: BASOPHILS % (AUTO) 0.1 % (0.0-2.0); EOSINOPHILS % (AUTO) 0.3 % (0.0-4.0); HEMATOCRIT 27.3 % (36-48); HEMOGLOBIN 8.9 g/dL (12.0-16.0); LYMPHOCYTES % (AUTO) 7.6 % (20.5-51.5); MEAN CORPUSCULAR HEMOGLOBIN 28 pg (27-31); MEAN CORPUSCULAR HGB CONC 33 % (32-36); MEAN CORPUSCULAR VOLUME 86 fL (79.0-98.0); MONOCYTES # (AUTO) 0.9 K/uL (0.0-1.0); MONOCYTES % (AUTO) 7.1 % (1.7-9.3); NEUTROPHILS # (AUTO) 11.2 K/uL (1.8-7.7); NEUTROPHILS % (AUTO) 84.9 % (40.0-70.0); PLATELET COUNT (AUTO) 388 K/uL (130-430); RED BLOOD CELL COUNT(AUTO) 3.19 MIL/uL (4.2-6.2); RED CELL DISTRIBUTION WIDTH 14.6 % (9.0-15.0); WHITE BLOOD COUNT (AUTO) 13.1 K/uL (4.8-10.8)
[2018-01-24 07:11] LABS: ALBUMIN 2.5 g/dL (3.4-4.8); CALCIUM 8.4 mg/dL (8.4-11.0); CREATININE 0.51 mg/dL (0.55-1.30); POTASSIUM 3.9 mmol/L (3.5-5.1); TOTAL BILIRUBIN 0.3 mg/dL (0.0-1.0)
[2018-01-24 08:05] VITALS: BP_SYST 149
--- NOTE | 2018-01-24 08:20 | NUR ---
Opening note Pt sitting at bedside, eating breakfast, has bouts of coughing, refuses RT to be called at this time. Pt ALOC x 4, is fall risk due to generalized weakness, but refuses bed alarm. Reviewed care plan for the day including antibiotic therapy. Reviewed safety and fall precautions. Pt, although ambulatory, agrees to call for assistance.
[2018-01-24] MEDS: ASPIRIN 325 MG TABLET (ECOTRIN) PO SCH ×2 (09:00→09:14)
--- NOTE | 2018-01-24 09:16 | NUR ---
Medication refused/wasted in room after opened package Pt refused her ecotrin after it had been opened. She took it yesterday but indicates that she doesn't feel like she needs it. Pt educated about medication, still refused.
[2018-01-24 09:18] VITALS: BP_SYST 149
[2018-01-24] MEDS: ALBUTEROL SULFATE 0.083% 2.5 MG/3 ML VIAL.NEB INH PRN (09:51)
[2018-01-24] MEDS: IPRATROPIUM BROM 0.5 MG/2.5 ML VIAL.NEB (ATROVENT) INH PRN (09:51)
--- NOTE | 2018-01-24 10:17 | NUR ---
Rounding Pt resting, easily aroused to voice, no SOB or distress at this time. Breathing even and unlabored
--- NOTE | 2018-01-24 12:15 | NUR ---
Rounding Pt assisted in ambulating the around the entirety of the unit, both east and west wings. Pt returned to bed. Her walker was tagged with a red band and her name so it doesn't get mixed up with the unit walkers No s/s of SOB or distress, no c/o pain at this time. Pt refuses bed alarm and agrees to call for assistance.
[2018-01-24 12:41] VITALS: BP_SYST 140
--- NOTE | 2018-01-24 14:20 | NUR ---
Rounding/New IV New IV start RFA 22 G. old one removed/leaking Pt assisted to restroom, linens changed, pt returned to bed, no s/s of SOB or distress, no c/o pain or discomfort at this time.
[2018-01-24 15:23] VITALS: BP_SYST 129
--- NOTE | 2018-01-24 16:06 | NUR ---
Rounding note Pt resting in bed awaiting discharge, notified family from bed. Addendum: 01/24/18 at 1608 by Rivka Anderson RN Charted in wrong pt chart, will correct
--- NOTE | 2018-01-24 19:43 | NUR ---
Closing note Pt resting in bed, no s/s of SOB or distress. Breathing even and unlabored on 2L nasal canula. Report given at bedside and care endorsed to NOC shift RN, including pt refusal of bed alarm.
[2018-01-24 20:42] VITALS: BP_SYST 137
--- NOTE | 2018-01-24 20:49 | NUR ---
REFUSING , PATIENT REFUSING BED ALARM .
--- NOTE | 2018-01-24 21:03 | NUR ---
patient refusing bed alarm
[2018-01-24] MEDS: ENOXAPARIN SODIUM 40 MG/0.4 ML SYRINGE SUBCUT SCH (21:24)
[2018-01-24] MEDS: ceFAZolin SODIUM 1 GM in D5W 50 ML IV SCH (21:24)
[2018-01-24] MEDS: ACETAMINOPHEN 325 MG TABLET PO PRN (22:32)
--- NOTE | 2018-01-24 22:55 | NUR ---
Patient awake assist out of bed to rest room ambulates with FFW fall measures implemented .
--- NOTE | 2018-01-24 22:57 | NUR ---
TYLENOL 650 MG PO GIVEN FOR GENERAL PAIN 09/25 .
[2018-01-24 23:41] VITALS: BP_SYST 157
[2018-01-25] MEDS: IPRATROPIUM/ALBUTEROL SULFATE 3 ML AMPUL.NEB INH SCH ×3 (00:40→13:32)
--- NOTE | 2018-01-25 02:36 | NUR ---
Hourly Rounding patient awake verbally indicative , assist encourage position change on 02 NC @ 2 LPM skin dry warm .
--- NOTE | 2018-01-25 04:17 | NUR ---
Patient resting is verbally responsive , on 02 NC @ 2 LPM chest movement symmetrical unlabored .
[2018-01-25 06:22] LABS: BASOPHILS % (AUTO) 0.1 % (0.0-2.0); EOSINOPHILS % (AUTO) 0.4 % (0.0-4.0); HEMATOCRIT 27.9 % (36-48); HEMOGLOBIN 9.3 g/dL (12.0-16.0); LYMPHOCYTES # (AUTO) 1.2 K/uL (1.0-5.5); LYMPHOCYTES % (AUTO) 12.8 % (20.5-51.5); MEAN CORPUSCULAR HEMOGLOBIN 29 pg (27-31); MEAN CORPUSCULAR HGB CONC 33 % (32-36); MEAN CORPUSCULAR VOLUME 86 fL (79.0-98.0); MONOCYTES # (AUTO) 0.8 K/uL (0.0-1.0); MONOCYTES % (AUTO) 8.6 % (1.7-9.3); NEUTROPHILS # (AUTO) 7.5 K/uL (1.8-7.7); NEUTROPHILS % (AUTO) 78.1 % (40.0-70.0); PLATELET COUNT (AUTO) 371 K/uL (130-430); RED BLOOD CELL COUNT(AUTO) 3.23 MIL/uL (4.2-6.2); RED CELL DISTRIBUTION WIDTH 14.6 % (9.0-15.0); WHITE BLOOD COUNT (AUTO) 9.5 K/uL (4.8-10.8)
[2018-01-25 06:40] LABS: CALCIUM 8.6 mg/dL (8.4-11.0); CREATININE 0.43 mg/dL (0.55-1.30); POTASSIUM 4.3 mmol/L (3.5-5.1)
[2018-01-25] MEDS: methylPREDNISolone SOD SUCC 40 MG/ML VIAL IVP SCH ×2 (06:51→13:12)
--- NOTE | 2018-01-25 07:20 | NUR ---
Initial notes: Patient awake, alert and oriented. On oxygen @2l NC. Stable. Discussed plan of care. Safety measures in placed. Call light within reach. Report received from maintenance supervisor 2nd shift.
[2018-01-25 08:00] VITALS: BP_SYST 124
[2018-01-25] MEDS: ASPIRIN 325 MG TABLET (ECOTRIN) PO SCH ×2 (09:00→09:32)
--- NOTE | 2018-01-25 09:00 | NUR ---
Ward rounds: Seen by Dr. Carrillo with new order.
[2018-01-25] MEDS: ceFAZolin SODIUM 1 GM in D5W 50 ML IV SCH (09:34)
--- NOTE | 2018-01-25 09:54 | NUR ---
Oxygen level: Patient oxygen level 88% without oxygen. Patient refused to use oxygen. Dr. Carrillo aware and ordered Dr. Lorena basurto at room air. Addendum: 01/25/18 at 1011 by Suma Jesus RN Re-approached patient and explained the oxygen level to her. She agreed to use oxygen @ 2l via NC.
[2018-01-25] MEDS ORDERED: CEPH-568 PO (10:04)
--- NOTE | 2018-01-25 10:14 | NUR ---
Debt Management Counselor DCP faxed pt's DC home if ok with Dr. Flores order to HCP CYRUS Brady. DCP received fax confirmation.
--- NOTE | 2018-01-25 10:17 | NUR ---
Rounds: Patient resting with Oxygen 2l. via NC. no distress noted.
[2018-01-25 12:10] VITALS: BP_SYST 132
--- NOTE | 2018-01-25 12:15 | NUR ---
Insurance Verification Clerk DCP faxed pt's discharge home with oxygen order to HCP CM Caitlyn. DCP received fax confirmation.
--- NOTE | 2018-01-25 13:55 | NUR ---
Oxygen level: checked oxygen level at room air 94%.
[2018-01-25 13:56] VITALS: BP_SYST 132
--- NOTE | 2018-01-25 14:05 | NUR ---
MDarya rounds: Dr. Flores seen the patient with new order.
--- NOTE | 2018-01-25 14:05 | NUR ---
Creative Services Manager DCP faxed pt's DC home without oxygen and F/U with Dr. Castorena next week order to HCP CM Caitlyn. DCP received fax confirmation.
--- NOTE | 2018-01-25 14:29 | NUR ---
D/C Patient Patient given medication reconciliation form and D/C instructions. Exit Care provided. Patient verbalized understanding. MD discussed with patient the results and treatment provided. Ambulatory with unsteady gait uses a walker for discharge to home. Refused wheelchair to wheel her out of the hospital. Patient in stable condition, ID band removed. IV catheter removed, intact and dressing applied, no active bleeding. Rx of Medrol and Keflex given. Patient educated on pain management. All belongings sent with patient.
--- NOTE | 2018-01-25 15:00 | NUR ---
Oxygen: Patient refused to use oxygen.
--- NOTE | 2018-01-25 16:50 | NUR ---
DCP. PATIENT LIVES ALONE. AMBULATES WITH A FWW. STILL DRIVES. ENROLLED IN HOUSE CALL, [place]AINE BARKER, [place]. NEXT OF KIN SISTER AND FATHER - OUT OF STATE. HAS NEBS AT HOME, PER PATIENT HAS OXYGEN TANK AT HOME , BUT NO PORTABLE 02. P02 56.5. HAS ORDER FOR 02 FOR HOME USE AT 2 L PM VIA NC. I SPOKE WITH PATIENT TO WAIT FOR 02, SHE REFUSED TO WAIT FOR THE DELIVERY OF O2. DR LANCE REMY PT. OK TO DC HOME W/O 02 PER NURSE LEOBARDO. WILL HAVE DELIVER 02 AT HOME. 02 ORDERED FROM APRIA REFERRED TO HCP HOUSE CALL FOR POST DISCHARGE VISIT KURTIS AUGUSTINE NP HC. ABEBE GUTIERREZ RN/CM
== END 2018-01-25 14:35 | disposition home or self-care (01) | DRG 871 ==
LOC: SED 17:23 → STU 19:00 → SMU 01-25 10:06
PROVIDERS: ADMIT Internal Medicine Hospice and Palliative Medicine; ATTEND Internal Medicine Hospice and Palliative Medicine
DX: A41.9 Sepsis, unspecified organism (principal); J18.9 Pneumonia, unspecified organism; I21.4 Non-ST elevation (NSTEMI) myocardial infarction; L03.115 Cellulitis of right lower limb; L03.116 Cellulitis of left lower limb; J44.0 Chronic obstructive pulmonary disease with (acute) lower respiratory infection; E87.1 Hypo-osmolality and hyponatremia; J45.901 Unspecified asthma with (acute) exacerbation; J44.1 Chronic obstructive pulmonary disease with (acute) exacerbation; I10 Essential (primary) hypertension; F41.9 Anxiety disorder, unspecified; I89.0 Lymphedema, not elsewhere classified; I87.2 Venous insufficiency (chronic) (peripheral); D72.1 Eosinophilia; M81.0 Age-related osteoporosis without current pathological fracture; G62.9 Polyneuropathy, unspecified; M19.90 Unspecified osteoarthritis, unspecified site; D64.9 Anemia, unspecified; R74.0 Nonspecific elevation of levels of transaminase and lactic acid dehydrogenase [LDH]; Z88.1 Allergy status to other antibiotic agents; Z79.899 Other long term (current) drug therapy; Z98.42 Cataract extraction status, left eye; Z98.41 Cataract extraction status, right eye; Z86.718 Personal history of other venous thrombosis and embolism; Z87.891 Personal history of nicotine dependence
CPT/HCPCS: 36415; 36600; 71045; 80048; 80053; 81003; 82785; 82803-TC; 82962; 83605; 83735-TC; 83880; 84100-TC; 84484; 85007; 85025; 85027; 87040-TC; 87081; 93005; 93970; 94640; 94760; 96365; 96366; 96367; 99291; J0690; J1030; J1650; J1940; J2060; J2543; J3370; J3490; J7060; J7613; J7620

== ENCOUNTER 2018-04-12 10:35 | Inpatient (IN) | payer BC ==
[~2018-04-12] VITALS: Ht 165.1 cm; Wt 39.9 kg
[~2018-04-12 10:35] MED LIST changes: +CEPH-568 PO
[2018-04-12 10:36] VITALS: BP_SYST 150
[2018-04-12] MEDS ORDERED: IPRATROPIUM/ALBUTEROL SULFATE 3 ML AMPUL.NEB INH ONE (11:00)
[2018-04-12] MEDS ORDERED: DEXAMETHASONE SOD PHOSPHATE 10 MG/ML VIAL IVP ONE (11:00)
[2018-04-12] MEDS ORDERED: IPRATROPIUM/ALBUTEROL SULFATE 3 ML AMPUL.NEB ONE (11:02)
[2018-04-12 11:18] LABS: BASOPHILS # (AUTO) 0.1 K/uL (0.0-0.2); BASOPHILS % (AUTO) 0.5 % (0.0-2.0); EOSINOPHILS # (AUTO) 2.8 K/uL (0.0-0.4); HEMOGLOBIN 11.2 g/dL (12.0-16.0); LYMPHOCYTES % (AUTO) 9.4 % (20.5-51.5); MEAN CORPUSCULAR HEMOGLOBIN 26 pg (27-31); MEAN CORPUSCULAR HGB CONC 33 % (32-36); MEAN CORPUSCULAR VOLUME 78 fL (79.0-98.0); MONOCYTES # (AUTO) 0.5 K/uL (0.0-1.0); MONOCYTES % (AUTO) 4.4 % (1.7-9.3); PLATELET COUNT (AUTO) 403 K/uL (130-430); RED BLOOD CELL COUNT(AUTO) 4.36 MIL/uL (4.2-6.2); RED CELL DISTRIBUTION WIDTH 16.9 % (9.0-15.0); WHITE BLOOD COUNT (AUTO) 10.4 K/uL (4.8-10.8)
[2018-04-12 11:30] LABS: CALCIUM 9.1 mg/dL (8.4-11.0); CREATININE 0.41 mg/dL (0.55-1.30); POTASSIUM 3.9 mmol/L (3.5-5.1)
[2018-04-12 11:33] LABS: NEUTROPHILS % (AUTO) 58.7 % (40.0-70.0)
[2018-04-12 11:35] LABS: ALBUMIN 3.3 g/dL (3.4-4.8); TOTAL BILIRUBIN 0.6 mg/dL (0.0-1.0)
[2018-04-12] MEDS ORDERED: methylPREDNISolone SOD SUCC/PF 62.5 MG/ML VIAL ONE (11:58)
[2018-04-12] MEDS ORDERED: LISI-209 PO (12:47)
[2018-04-12 14:21] VITALS: BP_SYST 143
[2018-04-12 16:52] VITALS: BP_SYST 134
[2018-04-12] MEDS ORDERED: AZITHROMYCIN 500 MG in NS 250 ML IV SCH (18:30)
[2018-04-12] MEDS ORDERED: ASPIRIN 325 MG TABLET PO ONE (18:30)
[2018-04-12] MEDS: IPRATROPIUM BROM 0.5 MG/2.5 ML VIAL.NEB (ATROVENT) INH SCH (18:32)
[2018-04-12] MEDS: ALBUTEROL SULFATE 0.083% 2.5 MG/3 ML VIAL.NEB INH SCH (18:33)
[2018-04-12 19:19] VITALS: BP_SYST 134
[2018-04-12] MEDS: methylPREDNISolone SOD SUCC/PF 62.5 MG/ML VIAL IVP SCH (19:55)
[2018-04-12] MEDS: cefTRIAXone 1 GM in D5W 50 ML IV SCH (19:55)
[2018-04-12 20:00] VITALS: BP_SYST 114
[2018-04-12] MEDS: AZITHROMYCIN 500 MG in NS 250 ML IV SCH (20:59)
[2018-04-13 00:40] VITALS: BP_SYST 115
[2018-04-13] MEDS: ALBUTEROL SULFATE 0.083% 2.5 MG/3 ML VIAL.NEB INH SCH ×4 (01:05→18:47)
[2018-04-13] MEDS: IPRATROPIUM BROM 0.5 MG/2.5 ML VIAL.NEB (ATROVENT) INH SCH ×4 (01:05→18:47)
[2018-04-13] MEDS: methylPREDNISolone SOD SUCC/PF 62.5 MG/ML VIAL IVP SCH ×3 (05:06→21:22)
[2018-04-13 07:56] VITALS: BP_SYST 114
[2018-04-13] MEDS: LISINOPRIL 5 MG TABLET PO SCH (08:46)
[2018-04-13] MEDS: ALBUTEROL SULFATE 0.083% 2.5 MG/3 ML VIAL.NEB INH PRN (10:59)
[2018-04-13] MEDS: IPRATROPIUM BROM 0.5 MG/2.5 ML VIAL.NEB (ATROVENT) INH PRN (11:00)
[2018-04-13 12:57] VITALS: BP_SYST 121
[2018-04-13 15:47] VITALS: BP_SYST 100
[2018-04-13] MEDS: ASPIRIN 325 MG TABLET PO SCH (15:53)
[2018-04-13] MEDS: cefTRIAXone 1 GM in D5W 50 ML IV SCH (17:47)
[2018-04-13] MEDS: AZITHROMYCIN 500 MG in NS 250 ML IV SCH (18:58)
[2018-04-13 19:00] VITALS: BP_SYST 107
[2018-04-13 20:00] VITALS: BP_SYST 107
[2018-04-14 00:33] VITALS: BP_SYST 118
[2018-04-14] MEDS: methylPREDNISolone SOD SUCC/PF 62.5 MG/ML VIAL IVP SCH ×3 (05:39→22:06)
[2018-04-14] MEDS: IPRATROPIUM BROM 0.5 MG/2.5 ML VIAL.NEB (ATROVENT) INH SCH ×3 (07:00→19:58)
[2018-04-14] MEDS: ALBUTEROL SULFATE 0.083% 2.5 MG/3 ML VIAL.NEB INH SCH ×3 (07:57→19:58)
[2018-04-14 08:00] VITALS: BP_SYST 124
[2018-04-14] MEDS: LISINOPRIL 5 MG TABLET PO SCH (09:00)
[2018-04-14] MEDS: IPRATROPIUM BROM 0.5 MG/2.5 ML VIAL.NEB (ATROVENT) INH PRN (09:10)
[2018-04-14] MEDS: ALBUTEROL SULFATE 0.083% 2.5 MG/3 ML VIAL.NEB INH PRN (09:10)
[2018-04-14 11:21] VITALS: BP_SYST 124
[2018-04-14] MEDS: ASPIRIN 325 MG TABLET PO SCH (13:53)
[2018-04-14 16:12] VITALS: BP_SYST 128
[2018-04-14] MEDS: cefTRIAXone 1 GM in D5W 50 ML IV SCH (18:21)
[2018-04-14 19:25] VITALS: BP_SYST 120
[2018-04-14] MEDS: AZITHROMYCIN 500 MG in NS 250 ML IV SCH (19:25)
[2018-04-15] VITALS (7 sets, daily range): BP systolic 102–137
[2018-04-15] MEDS: IPRATROPIUM BROM 0.5 MG/2.5 ML VIAL.NEB (ATROVENT) INH SCH ×4 (02:30→19:55)
[2018-04-15] MEDS: ALBUTEROL SULFATE 0.083% 2.5 MG/3 ML VIAL.NEB INH SCH ×4 (02:30→19:56)
[2018-04-15] MEDS: methylPREDNISolone SOD SUCC/PF 62.5 MG/ML VIAL IVP SCH ×3 (05:06→21:05)
[2018-04-15] MEDS: LISINOPRIL 5 MG TABLET PO SCH (08:53)
[2018-04-15] MEDS: ASPIRIN 325 MG TABLET PO SCH (11:45)
[2018-04-15] MEDS: cefTRIAXone 1 GM in D5W 50 ML IV SCH (18:03)
[2018-04-15] MEDS: AZITHROMYCIN 500 MG in NS 250 ML IV SCH (18:48)
[2018-04-16] MEDS: ALBUTEROL SULFATE 0.083% 2.5 MG/3 ML VIAL.NEB INH SCH ×2 (01:41→07:22)
[2018-04-16] MEDS: IPRATROPIUM BROM 0.5 MG/2.5 ML VIAL.NEB (ATROVENT) INH SCH ×2 (01:41→07:22)
[2018-04-16] MEDS: methylPREDNISolone SOD SUCC/PF 62.5 MG/ML VIAL IVP SCH (05:48)
[2018-04-16 08:00] VITALS: BP_SYST 121
[2018-04-16] MEDS: LISINOPRIL 5 MG TABLET PO SCH ×2 (09:16→09:18)
[2018-04-16] MEDS: ASPIRIN 325 MG TABLET PO SCH (09:16)
[2018-04-16 11:28] VITALS: BP_SYST 118
[2018-04-16 11:35] VITALS: BP_SYST 134
== END 2018-04-16 12:15 | disposition home or self-care (01) | DRG 189 ==
LOC: SED 10:35 → SMU 13:37
PROVIDERS: ADMIT Internal Medicine Hospice and Palliative Medicine; ATTEND Internal Medicine Hospice and Palliative Medicine
DX: J96.20 Acute and chronic respiratory failure, unspecified whether with hypoxia or hypercapnia (principal); E43 Unspecified severe protein-calorie malnutrition; J45.901 Unspecified asthma with (acute) exacerbation; Z68.1 Body mass index [BMI] 19.9 or less, adult; G62.9 Polyneuropathy, unspecified; I10 Essential (primary) hypertension; M19.90 Unspecified osteoarthritis, unspecified site; G89.29 Other chronic pain; D72.1 Eosinophilia; J44.9 Chronic obstructive pulmonary disease, unspecified; M81.8 Other osteoporosis without current pathological fracture; Z60.2 Problems related to living alone; Z53.29 Procedure and treatment not carried out because of patient's decision for other reasons; Z79.52 Long term (current) use of systemic steroids; Z86.718 Personal history of other venous thrombosis and embolism; Z88.8 Allergy status to other drugs, medicaments and biological substances; Z88.1 Allergy status to other antibiotic agents; Z79.899 Other long term (current) drug therapy
CPT/HCPCS: 36415; 36600; 71045; 80053; 82803-TC; 83605; 83880; 84484; 85025; 85379; 85610-TC; 85730-TC; 93005; 94640; 94760; 96374; 99285; J0456; J0696; J1100; J2930; J7050; J7060; J7613; J7620

== ENCOUNTER 2022-06-15 02:50 | Inpatient (IN) | payer BC, OTHER ==
[~2022-06-15] VITALS: Ht 152.4 cm; Wt 49.9 kg
[~2022-06-15 02:50] MED LIST changes: -CEPH-568 PO; +LISI-209 PO; -MOME13HF INH; +MOME13HF11 INH
[2022-06-15 02:53] VITALS: BP_SYST 130
--- NOTE | 2022-06-15 02:55 | NUR ---
Patient to ER bed 05 to gown for evaluation. Side rails up. Report given to NAI CHAUDHRY
[2022-06-15] MEDS ORDERED: MECLIZINE HCL 25 MG TABLET (ANITVERT) PO ONE (04:00)
[2022-06-15 04:36] LABS: BASOPHILS % (AUTO) 0.6 % (0.0-2.0); EOSINOPHILS # (AUTO) 0.5 K/uL (0.0-0.4); EOSINOPHILS % (AUTO) 7.2 % (0.0-4.0); LYMPHOCYTES # (AUTO) 2.9 K/uL (1.0-5.5); LYMPHOCYTES % (AUTO) 38.6 % (20.5-51.5); MEAN CORPUSCULAR HEMOGLOBIN 19 pg (27-31); MEAN CORPUSCULAR HGB CONC 31 % (32-36); MEAN CORPUSCULAR VOLUME 63 fL (79.0-98.0); MONOCYTES # (AUTO) 0.5 K/uL (0.0-1.0); MONOCYTES % (AUTO) 6.6 % (1.7-9.3); NEUTROPHILS # (AUTO) 3.6 K/uL (1.8-7.7); PLATELET COUNT (AUTO) 385 K/uL (130-430); RED BLOOD CELL COUNT(AUTO) 3.12 MIL/uL (4.2-6.2); RED CELL DISTRIBUTION WIDTH 20.9 % (9.0-15.0); WHITE BLOOD COUNT (AUTO) 7.6 K/uL (4.8-10.8)
[2022-06-15 04:38] LABS: HEMATOCRIT 19.6 % (36-48)
[2022-06-15 04:39] LABS: ANION GAP 5 (5-15); CALCIUM 8.6 mg/dL (8.4-11.0); CHLORIDE 100 mmol/L (98-107); CREATININE 0.39 mg/dL (0.55-1.30); GLUCOSE 84 mg/dL (70-99); UREA NITROGEN, BLOOD 18 mg/dL (8-21)
[2022-06-15 04:59] LABS: INR 0.9 (0.8-1.2); PROTHROMBIN TIME 9.5 SECS (9.5-12.5)
[2022-06-15 05:00] LABS: ALANINE AMINOTRANSFERASE 28 U/L (12-78); ASPARTATE AMINOTRANSFERASE 25 U/L (10-37); GFR AFRICAN AMERICAN 210 mL/min (>90); TOTAL BILIRUBIN 0.2 mg/dL (0.0-1.0)
--- NOTE | 2022-06-15 05:19 | NUR ---
COVID SAMPLE COLLECTED AND SENT TO LAB
[2022-06-15 05:40] LABS: BILIRUBIN,URINE NEGATIVE (NEGATIVE); BLOOD, URINE NEGATIVE (NEGATIVE); CLARITY/URINE CLEAR (CLEAR); COLOR,URINE YELLOW (YELLOW); GLUCOSE,URINE NEGATIVE (NEGATIVE); KETONES,URINE NEGATIVE (NEGATIVE); LEUKOCYTE ESTERASE ,URINE NEGATIVE (NEGATIVE); NITRITE, URINE NEGATIVE (NEGATIVE); PH,URINE 7.5 (5.0-8.0); PROTEIN URINE NEGATIVE (NEGATIVE); UROBILINOGEN,URINE 0.2 (0.2-1.0)
--- NOTE | 2022-06-15 05:42 | NUR ---
Admit bed requested Patient will be admitted to care of Admitted to Telemetry unit. Diagnosis Anemia, Dizziness Inpatient (Yes or No) yes Observation (Yes or No) No Orientation concerns or request close to nursing station (Yes or No) No Covid Status pending On vent or bipap No Isolation requirements No Needs a sitter no From Home (Yes or if No enter name of facility) Yes Requires Dialysis (Yes or No) No Med Rec Completed (Yes of No) Yes
[2022-06-15] MEDS ORDERED: PANTOPRAZOLE SODIUM 80 MG in NS 100 ML IVP ONE (05:45)
[2022-06-15] MEDS ORDERED: PANTOPRAZOLE SODIUM 40 MG in NS 50 ML IV SCH (05:45)
[2022-06-15 07:06] LABS: BARBITURATE, URINE NEGATIVE (NEG <=200); BENZODIAZEPINE, URINE NEGATIVE (NEG <=150); CANNABINOID, URINE NEGATIVE (NEG <=50); COCAINE, URINE NEGATIVE (NEG <=150); METHAMPHETAMINES SCREEN,URINE NEGATIVE (NEG <=500); OPIATE, URINE NEGATIVE (NEG <=100); PHENCYCLIDINE SCREEN,URINE NEGATIVE (NEG <=25); UR TRICYCLIC ANTIDEPRESSANTS NEGATIVE (NEG <=300); URINE AMPHETAMINE NEGATIVE (NEG <=500); URINE METHADONE NEGATIVE (NEG <=200); URINE OXYCODONE SCREEN NEGATIVE (NEG <=100); URINE PROPOXYPHENE SCREEN NEGATIVE (NEG <=300)
--- NOTE | 2022-06-15 07:13 | NUR ---
Report from Min RN at this time. patient up to bathroom with walker, refused manufacturing industrial engineer at this time stating that she is allergic to the leads. patient uses front wheel walker with no difficulty. Waiting for blood from blood bank. Also, waiting for bed. patient denies pain but states she feels very tired and fatigued. call light in reach, comfort measures maintained.
--- NOTE | 2022-06-15 07:43 | NUR ---
bedside echo being completed at this time.
--- NOTE | 2022-06-15 10:50 | NUR ---
Patient will be admitted to care of . Admitted to unit. Will go to room . Belongings list completed. Complete and up to date summary report printed. SBAR report to be given at bedside with opportunity for questions.
--- NOTE | 2022-06-15 10:50 | NUR ---
PATIENT TOLERATING BLOOD TRANSFUSION, VSS, NO REACTION AT THIS TIME, PATIENT RESTING COMFORTABLY, WILL BE TRANSFERRED TO TELE FLOOR AT THIS TIME.
--- NOTE | 2022-06-15 11:04 | NUR ---
1ST UNIT OF BLOOD INFUSING. WILL ENDORSE TO TELE PATIENT NEEDS ONE MORE UNIT OF BLOOD
--- NOTE | 2022-06-15 11:12 | NUR ---
CONSULTATION PAGED REASON FOR CONSULTATION:DIZZINESS WAS CONSULT CALED?Y PERSON WHO WAS NOTIFIED:TEXT MESSAGED DAKOTA ROTH CONSULTING PHYSICIAN:DAKOTA ROTH METAL HANGER SPECIALTY:NEURO METAL HANGER PHONE NUMBER:[phone] REQUESTING PHYSICIAN:MINI HANSON
[2022-06-15 11:30] VITALS: BP_SYST 139
--- NOTE | 2022-06-15 11:30 | NUR ---
OPENING NOTE PT CAME FROM ER, WITH ON GOING BLOOD TRANSFUSION. DENIES ANY ACUTE DISTRESS AND SHORTNESS OF BREATH. IV SITE REMAIN PATENT AND INTACT. PT AMBULATES WITH FWW WITH ASSISTANCE. BED IS LOCKED AND AT LOW POSITION. WILL CONTINUE TO MONITOR. VS: 98.1, 97% RA, 88, 139/87. Addendum: 06/15/22 at 1245 by Garry Carbajal RN ER NURSE AND PT VERBALIZE THAT [facility] FROM [facility] DID NOT RETURN PT'S HOME NICHOLE AND CELL PHONE.
--- NOTE | 2022-06-15 12:30 | NUR ---
NOTES; PT HAVING LUNCH AT BEDSIDE. DENIES ANY SOB, CHEST PAIN OR ACUTE DISTRESS. ON GOING BLOOD TRANSFUSION NOTED. WILL CONTINUE TO MONITOR
--- NOTE | 2022-06-15 13:45 | NUR ---
2ND PRBC STARTED
--- NOTE | 2022-06-15 15:00 | NUR ---
NOTES; PT IS SLEEPING. NO S/S OF DISCOMFORT OR PAIN NOTED. BED IS LOCKED AT AT LOWEST POSITION. CALL LIGHT WITHIN REACH. ON GOING BLOOD TRANSFUSION
--- NOTE | 2022-06-15 16:30 | NUR ---
AMBULATION WITH FWW PT AMBULATES WITH FWW, UNSTEADY GAIT. ASSISTED PT TO GO TO BATHROOM.
[2022-06-15] MEDS ORDERED: BISACODYL 5 MG TABLET.DR (DULCOLAX) PO ONE (17:00)
[2022-06-15] MEDS ORDERED: GOLYTELY / COLYTE SOLUTION 4 LITERS PO ONE (18:00)
--- NOTE | 2022-06-15 18:20 | NUR ---
NOTES; BLOOD TRANSFUSION FINISHED. DENIES ANY PAIN OR ACUTE DISTRESS.VS WITHIN NORMAL LIMIT
--- NOTE | 2022-06-15 18:50 | NUR ---
ROUNDING AT BEDSIDE, ASSESSING PATIENT.
[2022-06-15] MEDS: D5/0.45 NS 1,000 ML IV SCH (18:59)
--- NOTE | 2022-06-15 19:05 | NUR ---
CLOSING NOTE PT IN BED, SLEEPING. IV RUNNING ORDERED. IV SITE REMAIN INTACT AND PATENT. NO S/S OF INFECTION OR INFILTRATION. BED IS LOCKED AND AT LOWEST POSITION. CALL LIGHT WITHIN REACH. ENCOURAGED PT TO USE CALL LIGHT FOR ASSISTANCE. DENIES ANY PAIN OR DISCOMFORT. PT WANTS TO SIGN ON CONSENT FORMS AFTER TALKING TO DOCTORS. ENDORSED CAR SHIFTER AND ENDORSED CARE.
[2022-06-15 20:00] VITALS: BP_SYST 132
--- NOTE | 2022-06-15 23:14 | NUR ---
EXPLAINED TO PT THAT SHE NEEDS TO DRINK GOLYTELY SO SHE CAN BE CLEARED FOR EGD STATES IT IS HORRIBLE BUT IS ENCOURAGED
[2022-06-16] VITALS: BP_SYST 130
--- NOTE | 2022-06-16 00:55 | NUR ---
CONSULTATION CALLED FOR DR. KULWANT FRAGA DIRECTOR OF THERAPY SERVICES FOR CONSULT OF ANEMIA ORDER BY DR.A. COUGHLIN SPOKE WITH JADIEL
[2022-06-16 04:00] VITALS: BP_SYST 128
--- NOTE | 2022-06-16 04:18 | NUR ---
IV INFITRATEDNEW IV GAUGE22 INSERTED IN RT FA PATIENT IS CONCERN ABOUT HER DOG AND MISSING HOUSE KEYS SHE IS NOT SURE IF SHE WILL HAVE EGD
[2022-06-16 07:38] LABS: TOTAL IRON BIND. CAPACITY 347 ug/dL (250-450)
[2022-06-16 08:00] VITALS: BP_SYST 136
[2022-06-16] MEDS: D5/0.45 NS 1,000 ML IV SCH ×2 (09:08→11:45)
[2022-06-16] MEDS ORDERED: PANTOPRAZOLE SODIUM 40 MG/VIAL (PROTONIX) IVP ONE (11:00)
[2022-06-16 11:05] LABS: HEMATOCRIT 29.5 % (36-48); MEAN CORPUSCULAR HEMOGLOBIN 22 pg (27-31); MEAN CORPUSCULAR HGB CONC 32 % (32-36); MEAN CORPUSCULAR VOLUME 70 fL (79.0-98.0); PLATELET COUNT (AUTO) 351 K/uL (130-430); RED BLOOD CELL COUNT(AUTO) 4.22 MIL/uL (4.2-6.2); RED CELL DISTRIBUTION WIDTH 25.3 % (9.0-15.0)
[2022-06-16 11:20] LABS: HEMOGLOBIN 9.3 g/dL (12.0-16.0)
[2022-06-16] MEDS ORDERED: ONDANSETRON HCL 4 MG/2 ML VIAL IVP PRN (11:30)
[2022-06-16] MEDS ORDERED: LORazepam 2 MG/ML VIAL IVP PRN (11:30)
[2022-06-16 11:38] VITALS: BP_SYST 135
[2022-06-16] MEDS ORDERED: MEPERIDINE 100 MG INJ. 100 MG/ML VIAL ONE (11:38)
[2022-06-16] MEDS ORDERED: MIDAZOLAM HCL 5 MG/5 ML VIAL ONE (11:38)
--- NOTE | 2022-06-16 12:25 | NUR ---
CONSULTATION PAGED/CALLED Reason for Consultation: []anemia Person Who was Notified: []Mynor Consulting Physician: [] dr. Moran Calibration Tester Specialty: []Onco Ordering Physician: []adiel Rich
--- NOTE | 2022-06-16 14:12 | NUR ---
pt back from EGD,sleeping well in bed,IVF continue infusing,start soft diet per dr order.needs attended,call light & personal items within pt reach safety maintained,continue to monitor pt.
[2022-06-16 14:20] LABS: LYMPHOCYTES % (MANUAL) 17 % (20-46); MONOCYTES % (MANUAL) 14 % (0-11)
[2022-06-16 14:21] LABS: BASOPHILS % (MANUAL) 0 % (0-2); EOSINOPHILS % (MANUAL) 22 % (0-7)
[2022-06-16 16:17] VITALS: BP_SYST 144
--- NOTE | 2022-06-16 19:00 | NUR ---
Received pt alert and oriented x 4. she is resting in bed.vitals done Bps 124/78 HR 77 SPO2-100% on NC 3L/min.Temp 99.3 .pt denies pain
[2022-06-16 20:00] VITALS: BP_SYST 124
--- NOTE | 2022-06-16 20:00 | NUR ---
fall precaution maintained. pt has the call light.
[2022-06-16] MEDS: PANTOPRAZOLE SODIUM 40 MG/VIAL (PROTONIX) IVP SCH (20:38)
--- NOTE | 2022-06-16 21:00 | NUR ---
medicated as ordered.pt assisted to use the restroom
--- NOTE | 2022-06-17 | NUR ---
pt is anxious she states she has no family member to check in her dog and her house.she says she thinks someone has stolen them..spoke with her for some time reassured to relax .i offered a warm blanket .
--- NOTE | 2022-06-17 03:20 | NUR ---
pt is anxious, states she thinks someone has stolen her dog ,vitals done BPs 150/87 HR 83 SPO2-100% RR-20min positioned her to comfort, administered Ativan 0.5mg iv as ordered
--- NOTE | 2022-06-17 04:00 | NUR ---
pt resting in bed ,she is on oxygen @ 3l NC.she has a bedside Bps/spo2 monitor
--- NOTE | 2022-06-17 04:20 | NUR ---
pt found on the floor. she states she was trying to use the bathroom .pt assisted to bed by 2RNs .vitals done,Head to toe assessment done. noted a small bruise/abrasion to left elbow.pictures and dressing done.Pt re educated about safety precaution.fall precautions maintained.Dr Bourne informed advised to observe pt closely
--- NOTE | 2022-06-17 04:24 | NUR ---
PT FOUND ON GROUND [address] COUGHLIN STATES TO OBSERVE PATIENT, NNO Addendum: 06/17/22 at 0430 by Isma Melendez RN UNWITNESSED FALL
--- NOTE | 2022-06-17 05:00 | NUR ---
pt resting in bed with no signs of distress
[2022-06-17 08:00] VITALS: BP_SYST 142
[2022-06-17 08:16] LABS: CALCIUM 8.8 mg/dL (8.4-11.0); CREATININE 0.39 mg/dL (0.55-1.30)
[2022-06-17 08:17] LABS: BASOPHILS # (AUTO) 0.1 K/uL (0.0-0.2); BASOPHILS % (AUTO) 1.2 % (0.0-2.0); EOSINOPHILS # (AUTO) 1.4 K/uL (0.0-0.4); HEMATOCRIT 30.4 % (36-48); HEMOGLOBIN 9.7 g/dL (12.0-16.0); LYMPHOCYTES # (AUTO) 1.3 K/uL (1.0-5.5); LYMPHOCYTES % (AUTO) 13.9 % (20.5-51.5); MEAN CORPUSCULAR HEMOGLOBIN 22 pg (27-31); MEAN CORPUSCULAR HGB CONC 32 % (32-36); MEAN CORPUSCULAR VOLUME 70 fL (79.0-98.0); MONOCYTES # (AUTO) 0.8 K/uL (0.0-1.0); MONOCYTES % (AUTO) 8.3 % (1.7-9.3); NEUTROPHILS # (AUTO) 5.6 K/uL (1.8-7.7); NEUTROPHILS % (AUTO) 61.6 % (40.0-70.0); PLATELET COUNT (AUTO) 346 K/uL (130-430); RED BLOOD CELL COUNT(AUTO) 4.36 MIL/uL (4.2-6.2); RED CELL DISTRIBUTION WIDTH 25.9 % (9.0-15.0)
[2022-06-17 09:17] LABS: WHITE BLOOD COUNT (AUTO) 9.1 K/uL (4.8-10.8)
[2022-06-17] MEDS: PANTOPRAZOLE SODIUM 40 MG/VIAL (PROTONIX) IVP SCH ×2 (10:13→20:03)
--- NOTE | 2022-06-17 12:34 | NUR ---
PATIENT IS TOO SLEEPY TO PARTICIPATE IN THE EVALUATION. PLAN: ATTEMPT TOMORROW.
[2022-06-17 16:00] VITALS: BP_SYST 144
[2022-06-17] MEDS ORDERED: SOD FERRIC GLUC COMPLEX/SUC 125 MG in NS 100 ML IV SCH (16:00)
[2022-06-17] MEDS: SOD FERRIC GLUC COMPLEX/SUC 125 MG in NS 100 ML IV SCH (17:24)
[2022-06-17] MEDS: ACETAMINOPHEN 500 MG TABLET PO PRN (18:29)
--- NOTE | 2022-06-17 18:30 | NUR ---
PT LETHARGIC,FORGETFUL AND CONFUSED AT TIMES,VSS,FELL LAST NIGHT PATIENT SAID SHE GOT VERY DIZZY AND SPINNING AFTER ATIVAN GIVEN, D/C ATIVAN PER DR ORDER, LEFT ANKLE MORE TENDER AND SWELLING, CALLED AND NOTIFIED,XRAY OF LEFT ANKLE DONE AND GIVE TYLENOL 500MG PO PRN ORDER FOR PAIN NEEDS ATTENDED,CALL LIGHT & PERSONAL ITEMS WITHIN PT REACH, SAFETY MAINTAINED,CONTINUE TO MONITOR PT.
[2022-06-17 19:30] VITALS: BP_SYST 135
--- NOTE | 2022-06-17 19:30 | NUR ---
INITIAL NOTE AT INITIAL ASSESSMENT, PATIENT IS SITTING AT BEDSIDE WITH FEET DANGLING. PATIENT VERBALIZES SEVERE PAIN, BUT STATES SHE DOES NOT WANT ANY PAIN MEDICATION OTHER THAN TYLENOL THAT WAS JUST GIVEN AN HOUR AGO BY DAY SHIFT. PLAN OF CARE FOR THE EVENING IS COMMUNICATED WITH THE PATIENT, SHE UNDERSTANDS BUT IS REFUSING TO USE BEDSIDE COMMODE FOR SAFETY. PATIENT STATES SHE WANTS TO AMBULATE TO THE RESTROOM INSTEAD OF COMMODE, PATIENT IS TAUGHT CALL LIGHT BUTTON, AND DEMONSTRATES USAGE TEACH BACK CORRECTLY. CALL LIGHT PLACED WITHIN REACH. BED IS LOCKED, ALARMED, AND AT THE LOWEST LEVEL. FALL, SAFETY, RESPIRATORY, AND ASPIRATION PRECAUTIONS WILL BE TAKEN THROUGH THE SHIFT.
[2022-06-17] MEDS: D5/0.45 NS 1,000 ML IV SCH (20:08)
--- NOTE | 2022-06-17 20:10 | NUR ---
PATIENT AMBULATED TO THE RESTROOM PATIENT AMBULATED TO THE RESTROOM WITH WALKER AND MINIMAL ASSISTANCE. SHE IS REPOSITIONED BACK INTO BED FOR COMFORT. PATIENT VERBALIZED PAIN BUT IS REFUSING ANY ADDITIONAL PAIN MEDICATION.
[2022-06-18] VITALS: BP_SYST 140
[2022-06-18] MEDS: ALBUTEROL SULFATE 0.083% 2.5 MG/3 ML VIAL.NEB INH SCH ×4 (03:20→19:10)
[2022-06-18 03:48] VITALS: BP_SYST 135
[2022-06-18] MEDS: D5/0.45 NS 1,000 ML IV SCH ×3 (06:40→20:32)
[2022-06-18] MEDS: ACETAMINOPHEN 500 MG TABLET PO PRN ×3 (06:41→20:51)
--- NOTE | 2022-06-18 06:45 | NUR ---
FOR CHARGE OUT CLERK: (MISSING ITEMS) PATIENT IS ANXIOUS, SHE STATES THAT WHEN FIRE DEPARTMENT PICKED HER UP, THEY LEFT BOTH HER CELL PHONE [phone] (OLD BLACK IPHONE), AND ALSO HER HOUSE NICHOLE (JUST ONE NICHOLE WITH SILVER RING) AT HER HOME. SHE STATES SHE DOES NOT KNOW ANY PHONE NUMBERSE WITHOUT HER PHONE. SHE IS ALSO ANXIOUS, BECAUSE HER DOG IS STILL THERE AND SHE IS NERVOUS IT COULD BE " BY NOW"
--- NOTE | 2022-06-18 06:54 | NUR ---
CLOSING NOTE PATIENT VERBALIZED SEVERE PAIN WHILE MOVING DURING THE NIGHT, MD WAS NO PAGED FOR STRONGER PAIN MEDICATION BECAUSE PATIENT REFUSES ANYTHING STRONGER THAN TYLENOL. PATIENT ALSO SOUNDS MORE CONGESTED THIS MORNING AND SHE IS COUGHING WITH SMALL AMOUNT OF HERNANDEZ PHLEGM, HER OXYGEN SATURATION ON 2L NASAL CANNULA IS 98%. PATIENT IS MORE COOPERATIVE THIS MORNING, SHE HAS AGREED TO USED THE BEDSIDE COMMODE TO VOID INSTEAD OF AMBULATING TO THE RESTROOM SINCE SHE IS WEAK. AT THIS TIME, SHE IS RESTING IN BED, STABLE, NO SIGNS OF RESPIRATORY DISTRESS. CALL LIGHT PLACED WITHIN REACH. BED IS LOCKED, ALARMED, AND AT THE LOWEST LEVEL. WILL CONTINUE TO MONITOR UNTIL REPORT IS GIVEN AT BEDSIDE TO AM NURSE.
--- NOTE | 2022-06-18 07:05 | NUR ---
OPENING RECEIVE SBAR FROM NIGHT NURSE, PATIENT IN BED WITH EYES CLOSED, CURRENTLY GETTING BREATHING TX, O2 SET ON 5L/MIN WHILE ON TX., BED IN LOW AND LOCK POSITION, CALL LIGHT WITHIN REACH
[2022-06-18 07:12] LABS: BASOPHILS % (AUTO) 0.6 % (0.0-2.0); EOSINOPHILS # (AUTO) 1.4 K/uL (0.0-0.4); HEMATOCRIT 29.1 % (36-48); HEMOGLOBIN 9.4 g/dL (12.0-16.0); LYMPHOCYTES # (AUTO) 1.3 K/uL (1.0-5.5); LYMPHOCYTES % (AUTO) 17.7 % (20.5-51.5); MEAN CORPUSCULAR HEMOGLOBIN 22 pg (27-31); MEAN CORPUSCULAR HGB CONC 32 % (32-36); MEAN CORPUSCULAR VOLUME 69 fL (79.0-98.0); MONOCYTES # (AUTO) 0.8 K/uL (0.0-1.0); MONOCYTES % (AUTO) 9.9 % (1.7-9.3); PLATELET COUNT (AUTO) 335 K/uL (130-430); RED CELL DISTRIBUTION WIDTH 26.6 % (9.0-15.0); WHITE BLOOD COUNT (AUTO) 7.6 K/uL (4.8-10.8)
[2022-06-18 07:19] LABS: CALCIUM 8.5 mg/dL (8.4-11.0); CREATININE 0.38 mg/dL (0.55-1.30)
[2022-06-18] MEDS: BUDESONIDE 0.5 MG/2 ML AMPUL.NEB INH SCH ×2 (07:40→19:00)
[2022-06-18 08:00] VITALS: BP_SYST 138
[2022-06-18] MEDS: PANTOPRAZOLE SODIUM 40 MG/VIAL (PROTONIX) IVP SCH ×2 (08:32→20:30)
--- NOTE | 2022-06-18 09:40 | NUR ---
CHIEF OF POLICE ACSW Sandy responded to a Social Work consult for "help with home". ACSW met with patient at bedside. ACSW completed introductions, reason for referral, provided business card and patient was open to contact. Living situation- Patient confirms she lives alone in [place]. She states she has some friends/neighbors in the area who are available to be of support to her. Concerns- Patient expressed concerns with not having her cellphone and her house keys since being brought in by ambulance on 06/15. She also expressed concern for her dogs as they have been left alone since her admission. ACSW expressed concerns with patient being able to safely address her needs following her fall as she resides alone. She shared she has friends who may help, but is unable to contact them due to not having cell phone. Patient has purse in her possession, but does not have keys or cellphone. According to patient, EMT's told her they locked up her home and sent her cellphone. She also shared nursing staff's attempts to locate belongings has been unsuccessful. ACSW contacted [place] [employer] to request home check. ACSW provided update to patient ACSW will continue to be available as needed Addendum: 06/18/22 at 1410 by Sandy Reid MSW ACSW was contacted by Officer Janell who was dispatched to patient's home and shared patient's home was unsecured. ACSW transferred call to patient's nurse so Officer can connect to patient.
--- NOTE | 2022-06-18 09:50 | NUR ---
NURSE NOTES PT TAKEN TO XRAY, OFFICER AURE CALLED REGARDING HOUSE CHECK OF PATIENT, PER OFFICER FRONT DOOR UNLOCKED. VERIFIED WITH PATIENT VIA RADIOLOGY AND TO ASK OFFICER TO LOCK THE FRONT DOOR,
--- NOTE | 2022-06-18 09:53 | NUR ---
MD DR. LAM ON FLOOR, SPOKE TO HIM REGARDING PATIENT CARE. NEW ORDERS RECEIVED
[2022-06-18 09:56] LABS: NEUTROPHILS % (AUTO) 52.8 % (40.0-70.0)
[2022-06-18] MEDS ORDERED: guaiFENesin/DEXTROMETHORPHAN 10 ML UDC PO PRN (10:15)
--- NOTE | 2022-06-18 10:46 | NUR ---
INFORMED DR COUGHLIN OF POTASSIUM, NEW ORDERS RECEIVED
--- NOTE | 2022-06-18 11:00 | NUR ---
PATIENT WAS UNAVAILABLE EARLIER DUE TO BEING OFF THE FLOOR FOR LLE X-RAY. AWAIT RESULTS. EVALUATE TOMORROW IF X-RAYS ARE NEGATIVE. DISCUSSED WITH RN.
[2022-06-18] MEDS ORDERED: POTASSIUM CHLORIDE 20 MEQ TAB.PRT.SR PO ONE (11:30)
--- NOTE | 2022-06-18 12:00 | NUR ---
NURSE NOTES ASSIST PATIENT TO COMMODE. PATIENT WAS MORE COOPERATIVE.
[2022-06-18 12:46] VITALS: BP_SYST 136
--- NOTE | 2022-06-18 16:25 | NUR ---
PAIN PATIENT ASK FOR PAIN MEDS, TYLENOL WAS GIVEN. PT WOULD NOT GIVE SPECIFICS ON HOW BAD THE PAIN IS. WOULD ONLY TAKE TYLENON
[2022-06-18] MEDS: SOD FERRIC GLUC COMPLEX/SUC 125 MG in NS 100 ML IV SCH (16:27)
[2022-06-18 16:29] VITALS: BP_SYST 137
--- NOTE | 2022-06-18 17:20 | NUR ---
PAIN ASSESSMENT ASSESS PAIN AFTER TYLENOL, PT STATES ITS BETTER BUT WOULD NOT GIVE ME A NUMERIC NUMBER,
--- NOTE | 2022-06-18 18:00 | NUR ---
NURSE NOTE, HELP PATIENT TO COMMODE, PT TOLERATED WELL
--- NOTE | 2022-06-18 19:00 | NUR ---
TROUBLE BREATHING PATIENT COMPLAINING OF DIFFICULTY BREATHING. O2 98% ON 3L. CALLED RT FOR BREATHING TREATMENT
--- NOTE | 2022-06-18 19:15 | NUR ---
CLOSING PROVIDED SBAR TO NIGHT NURSE, PATIEN IN BED WITH BREATHING TREATMENT. EYES CLOSED, BED IN LOW AND LOCK POSITION ALARM BED ON, CALL LIGHT WITHIN REACH
[2022-06-18 19:30] VITALS: BP_SYST 133
--- NOTE | 2022-06-18 19:30 | NUR ---
INITIAL NOTE AT INITIAL ASSESSMENT, PATIENT IS RESTING IN BED, STABLE, NO SIGNS OF RESPIRATORY DISTRESS. SHE VERBALIZES NO PAIN. PLAN OF CARE FOR THE EVENING IS COMMUNICATED WITH THE PATIENT. PATIENT IS TAUGHT HOW TO USE THE CALL LIGHT BUTTON, AND SHE DEMONSTRATES USAGE TEACH BACK CORRECTLY. CALL LIGHT PLACED WITHIN REACH. BEDSIDE COMMODE AND WALKER ARE AT BEDSIDE FOR EASY ACCESS. BED IS LOCKED, ALARMED, AND AT THE LOWEST LEVEL. FALL, SAFETY, RESPIRATORY, AND ASPIRATION PRECAUTIONS WILL BE TAKEN THROUGH THE SHIFT.
--- NOTE | 2022-06-19 00:30 | NUR ---
COUGH/ SHORTNESS OF BREATH AFTER PATIENT HAS VOID ON BEDSIDE COMMODE, SHE STARTS TO COUGH AGAIN AND HAS SOME SHORTNESS OF BREATH. SHE IS REFUSING COUGH MEDICATION BECAUSE SHE BELIEVES "IT WON'T WORK", RT IS PAGED FOR BREATHING TREATMENT AT THIS TIME.
[2022-06-19] MEDS: ALBUTEROL SULFATE 0.083% 2.5 MG/3 ML VIAL.NEB INH SCH ×4 (00:35→19:54)
[2022-06-19] MEDS: ACETAMINOPHEN 500 MG TABLET PO PRN ×2 (04:13→11:22)
--- NOTE | 2022-06-19 04:30 | NUR ---
COUGH AND CONGESTION/ PATIENT REFUSES ROBITUSSIN PATIENT HAS A COUGH, SHE IS COMPLAINING OF CONGESTION. THIS IS HER THIRD TIME REFUSING ROBITUSSIN. HER OXYGEN SATURATION IS WNL ON 2L NC.
--- NOTE | 2022-06-19 06:04 | NUR ---
CALLED [place] [place] [employer] CALLED [place] [employer], POWER ELECTRONICS ENGINEER STATED THAT THE OFFICERS THAT WENT TO PATIENT'S HOUSE YESTERDAY DID IN FACT SEE A DOG OUTSIDE THE HOUSE, ALIVE. POWER ELECTRONICS ENGINEER STATED THAT SINCE THEY OFFICER LOCKED THE PATIENT'S HOUSE THEY WOULD NO LONGER BE ABLE TO GET INSIDE TO GET HER PHONE.
--- NOTE | 2022-06-19 06:07 | NUR ---
CALLED [facility] CALLED [facility], THEY VERBALIZED THAT THEY CAN SCHEDULE A BOARD RUNNER FOR PATIENT'S DOG TODAY, BUT WE WOULD NEED TO CALL AGAIN AFTER 8 AM TODAY , WILL ENDORSE TO AM NURSE. Addendum: 06/19/22 at 0654 by Brianna Patten RN RN DOG'S NAME IS JOSE, DOG IS A DEAF PACK PACK
--- NOTE | 2022-06-19 06:54 | NUR ---
CLOSING NOTE PATIENT WAS MORE COOPERATIVE, SHE USED THE BEDSIDE COMMODE DURING THE NIGHT. SHE IS STILL VERY WEAK, AND NEEDS ASSISTANCE. SHE DOES NOT CALL BEFORE GETTING OUT OF BED DESPITE NUMEROUS EDUCATIONAL EFFORTS. SHE IS COUGHING WITH SMALL AMOUNT OF HERNANDEZ PHLEGM, HER OXYGEN SATURATION ON 2L NASAL CANNULA IS 95%, SHE HAS REFUSED PRN ROBITUSSIN ORDERED 4 TIMES DURING THE NIGHT. AT THIS TIME, SHE IS RESTING IN BED, STABLE, NO SIGNS OF RESPIRATORY DISTRESS. CALL LIGHT PLACED WITHIN REACH. BED IS LOCKED, ALARMED, AND AT THE LOWEST LEVEL. FALL, SAFETY, RESPIRATORY, AND ASPIRATION PRECAUTIONS HAVE BEEN IN PLACE THROUGHOUT THE SHIFT. WILL CONTINUE TO MONITOR UNTIL REPORT IS GIVEN AT BEDSIDE TO AM NURSE.
[2022-06-19] MEDS: BUDESONIDE 0.5 MG/2 ML AMPUL.NEB INH SCH ×2 (07:21→19:54)
[2022-06-19 08:00] VITALS: BP_SYST 134
[2022-06-19 08:00] LABS: BASOPHILS # (AUTO) 0.1 K/uL (0.0-0.2); EOSINOPHILS # (AUTO) 1.5 K/uL (0.0-0.4); HEMATOCRIT 27.7 % (36-48); HEMOGLOBIN 8.8 g/dL (12.0-16.0); LYMPHOCYTES # (AUTO) 1.2 K/uL (1.0-5.5); LYMPHOCYTES % (AUTO) 15.3 % (20.5-51.5); MEAN CORPUSCULAR HEMOGLOBIN 23 pg (27-31); MEAN CORPUSCULAR HGB CONC 32 % (32-36); MEAN CORPUSCULAR VOLUME 70 fL (79.0-98.0); MONOCYTES # (AUTO) 0.8 K/uL (0.0-1.0); MONOCYTES % (AUTO) 10.2 % (1.7-9.3); NEUTROPHILS # (AUTO) 4.1 K/uL (1.8-7.7); NEUTROPHILS % (AUTO) 53.5 % (40.0-70.0); PLATELET COUNT (AUTO) 320 K/uL (130-430); RED BLOOD CELL COUNT(AUTO) 3.93 MIL/uL (4.2-6.2); RED CELL DISTRIBUTION WIDTH 26.8 % (9.0-15.0); WHITE BLOOD COUNT (AUTO) 7.7 K/uL (4.8-10.8)
[2022-06-19 08:05] LABS: ALBUMIN 2.6 g/dL (3.4-4.8); CALCIUM 8.5 mg/dL (8.4-11.0); CREATININE 0.35 mg/dL (0.55-1.30); TOTAL BILIRUBIN 0.4 mg/dL (0.0-1.0)
[2022-06-19] MEDS: PANTOPRAZOLE SODIUM 40 MG/VIAL (PROTONIX) IVP SCH ×2 (08:58→21:02)
--- NOTE | 2022-06-19 10:19 | NUR ---
ACTIVITY PT AMBULATED USING FRONT WHEELED WALKER. TOLERATED WELL.
--- NOTE | 2022-06-19 10:35 | NUR ---
CONSULTATION PAGED REASON FOR CONSULTATION:HYPONAREMIA WAS CONSULT CALLED?Y PERSON WHO WAS NOTIFIED:LALITO CONSULTING PHYSICIAN:SIMEON CONTRERAS GARDEN WORKER SPECIALTY:NEPHRO GARDEN WORKER PHONE NUMBER:[phone] REQUESTING PHYSICIAN:MINI HANSON
--- NOTE | 2022-06-19 10:45 | NUR ---
SHE IS SAFE TO AMBULATE WITH NURSING. PATIENT DOES NOT NEED FURTHER PHYSICAL THERAPY IN THIS SETTING. RECOMMEND HOME HEALTH PT.
[2022-06-19 11:00] VITALS: BP_SYST 148
--- NOTE | 2022-06-19 11:22 | NUR ---
PAIN PT COMPLAINED OF RIB AND LEG PAIN, 1 TABLET TYLENOL EXTRA STRENGTH GIVEN.
--- NOTE | 2022-06-19 12:00 | NUR ---
REST PT EXPRESSED GOOD RELIEF OF PAIN.
[2022-06-19] MEDS: D5NS 1,000 ML IV SCH (12:25)
[2022-06-19 16:20] VITALS: BP_SYST 129
[2022-06-19] MEDS: SOD FERRIC GLUC COMPLEX/SUC 125 MG in NS 100 ML IV SCH (17:05)
[2022-06-19 19:40] VITALS: BP_SYST 117
--- NOTE | 2022-06-19 19:40 | NUR ---
INITIAL NOTE AT INITIAL ASSESSMENT, PATIENT IS RESTING IN BED, STABLE, NO SIGNS OF RESPIRATORY DISTRESS. SHE VERBALIZES NO PAIN. PLAN OF CARE FOR THE EVENING IS COMMUNICATED WITH THE PATIENT. PATIENT IS TAUGHT HOW TO USE THE CALL LIGHT BUTTON, AND SHE DEMONSTRATES USAGE TEACH BACK CORRECTLY. CALL LIGHT PLACED WITHIN REACH. BEDSIDE COMMODE AND WALKER ARE AT BEDSIDE FOR EASY ACCESS, PATIENT IS INSISTING THAT SHE WILL USE RESTROOM INSTEAD OF COMMODE TONIGHT. BED IS LOCKED, ALARMED, AND AT THE LOWEST LEVEL. FALL, SAFETY, RESPIRATORY, AND ASPIRATION PRECAUTIONS WILL BE TAKEN THROUGH THE SHIFT.
--- NOTE | 2022-06-19 21:52 | NUR ---
PAGED DR. COUGHLIN,A MD PAGED AT THIS TIME FOR PATIENT'S REQUEST FOR SOLUMEDROL, SHE BELIEVES IT WILL HELP HER WITH HER COUGH AND CONGESTION. AWAITING CALL BACK.
--- NOTE | 2022-06-19 23:21 | NUR ---
PAGED DR. COUGHLIN,A SECOND PAGE TO AT THIS TIME, AWAITING CALL BACK.
[2022-06-20] VITALS: BP_SYST 123
[2022-06-20] MEDS: ACETAMINOPHEN 500 MG TABLET PO PRN ×2 (01:48→21:22)
[2022-06-20] MEDS: ALBUTEROL SULFATE 0.083% 2.5 MG/3 ML VIAL.NEB INH SCH ×4 (02:18→19:18)
--- NOTE | 2022-06-20 06:30 | NUR ---
CLOSING NOTE SHE REMAINS ON 2L NC. PATIENT SEEMS TO HAVE SLIGHTLY MORE STRENGTH TONIGHT, SHE WANTED TO USE THE RESTROOM AND REFUSED BEDSIDE COMMODE DURING THE NIGHT. SHE DOES NOT WANT TO ACCEPT THAT SHE IS A FALL RISK NOW. SHE DID HOWEVER, START USING THE THE CALL LIGHT TO LET THE NURSE KNOW SHE NEEDS ASSISTANCE FOR A VOID NOW INSTEAD OF JUST GOING ON HER OWN. AT THIS TIME, SHE IS RESTING IN BED, STABLE, NO SIGNS OF RESPIRATORY DISTRESS. CALL LIGHT PLACED WITHIN REACH. BED IS LOCKED, ALARMED, AND AT THE LOWEST LEVEL. WILL CONTINUE TO MONITOR UNTIL REPORT IS GIVEN AT BEDSIDE TO AM NURSE.
[2022-06-20] MEDS: BUDESONIDE 0.5 MG/2 ML AMPUL.NEB INH SCH ×2 (07:42→19:18)
[2022-06-20] MEDS: D5NS 1,000 ML IV SCH (07:45)
[2022-06-20 08:00] VITALS: BP_SYST 107
--- NOTE | 2022-06-20 08:00 | NUR ---
Initial note Received patient awake, alert/oriented x4, verbalizes needs and concern, but not following direction/noncompliance. Respiration even and unlabored, diminished lung sounds. Vital signs normal, SR on scrap cutter. No c/o SOB/chest discomfort or pain, no signs distress. Oxygen saturation 97% on 2L nasal canula. Patient sitting at edge of bed stating " I can breath better in this position" IV fluids infusing to left hand, no sign of infiltration. All safety measure are secured, bed in low position, call light w/in reached, continue to monitor.
[2022-06-20 08:04] LABS: BASOPHILS # (AUTO) 0.1 K/uL (0.0-0.2); BASOPHILS % (AUTO) 0.7 % (0.0-2.0); EOSINOPHILS # (AUTO) 1.4 K/uL (0.0-0.4); EOSINOPHILS % (AUTO) 17.7 % (0.0-4.0); HEMATOCRIT 27.6 % (36-48); HEMOGLOBIN 8.7 g/dL (12.0-16.0); LYMPHOCYTES # (AUTO) 1.2 K/uL (1.0-5.5); LYMPHOCYTES % (AUTO) 15.2 % (20.5-51.5); MEAN CORPUSCULAR HEMOGLOBIN 23 pg (27-31); MEAN CORPUSCULAR HGB CONC 32 % (32-36); MEAN CORPUSCULAR VOLUME 72 fL (79.0-98.0); MONOCYTES # (AUTO) 0.8 K/uL (0.0-1.0); MONOCYTES % (AUTO) 10.2 % (1.7-9.3); NEUTROPHILS # (AUTO) 4.3 K/uL (1.8-7.7); PLATELET COUNT (AUTO) 324 K/uL (130-430); RED BLOOD CELL COUNT(AUTO) 3.85 MIL/uL (4.2-6.2); RED CELL DISTRIBUTION WIDTH 28.1 % (9.0-15.0); WHITE BLOOD COUNT (AUTO) 7.7 K/uL (4.8-10.8)
[2022-06-20 08:45] LABS: CALCIUM 9.1 mg/dL (8.4-11.0); CREATININE 0.41 mg/dL (0.55-1.30); THYROID STIMULATING HORMONE 2.75 uIu/mL (0.36-3.74)
--- NOTE | 2022-06-20 09:00 | NUR ---
MOVED TO ROOM 104A PATIENT NON COMPLIANT WITH SHORTNESS OF BREATH ON EXERTION ESPECIALLY WHEN SHE WALK TO THE BATHROOM. EXPLAINED THE RISK OF WALKING TO THE BATHROOM DUE TO SOB, STILL REFUSED TO USED BEDSIDE COMMODE. PATIENT RUDE TO THE STAFF AND INSISTED TO WALK EVEN WITH SHORTNESS OF BREATH. MOVED TO ROOM 104A FOR CLOSE MONITORING.
[2022-06-20 09:06] LABS: NEUTROPHILS % (AUTO) 56.2 % (40.0-70.0)
--- NOTE | 2022-06-20 10:00 | NUR ---
Rounding No c/o pain /distress, sitting at edge of bed, all safety secured, bed in low position, call light w/in reached, continue to monitor.
[2022-06-20] MEDS: PANTOPRAZOLE SODIUM 40 MG/VIAL (PROTONIX) IVP SCH ×2 (10:23→21:21)
[2022-06-20 12:00] VITALS: BP_SYST 117
--- NOTE | 2022-06-20 13:41 | NUR ---
Rounding No c/o pain /distress, sitting at edge of bed eating lunch, all safety secured, bed in low position, call light w/in reached, continue to monitor.Rounding
--- NOTE | 2022-06-20 14:00 | NUR ---
CM: assessed pt for dc home iwth HH/PT and arranging home O2: I spoke with pt , stated she lives alone, no family, does not remember neighbor's name. The pt has a caregiver to do grocery shoping and other small thing. Said all contact persons and numbers are in her cell phone which is at home. The pt searched her purse and found the [facility]. THE DISCHARGE BARRIERS are: pt is high risk for fall, has shortness of breath with movement in bed, unable to finish sentence while talking to me. Charge nurse move her closer to nursing station for close monitoring . Pt got oob without calling SOLDERING MACHINE FEEDER. I asked patient for snf placement instead of going home, she refused. Stated she can take care of herself at home. The pt will need home oxygen if dc to home. CM/HOME LENDING OFFICER will reeval on Wednesday. NAI Barcenas aware.
[2022-06-20 16:53] VITALS: BP_SYST 110
[2022-06-20] MEDS: SOD FERRIC GLUC COMPLEX/SUC 125 MG in NS 100 ML IV SCH (17:43)
--- NOTE | 2022-06-20 18:27 | NUR ---
Closing note Patient stable, no c/o pain, or SOB, no sign of distress, vital signs w/in normal limit, no change in condition, will endorse to oncoming nurse
--- NOTE | 2022-06-20 19:00 | NUR ---
WITH SHORTNESS OF BREATH PATIENT WENT TO THE BATHROOM, USED A WALKER. PATIENT INSISTED TO SIT IN A CHAIR AND COMPLAINED OF SHORTNESS OF BREATH AFTER GOING TO THE BATHROOM, REFUSED TO GO BACK TO BED AND THREATENED THE STAFF THAT SHE WILL CALL 911 IF WE PUT HER BACK IN BED. NOTIFIED DR COUGHLIN, ORDERED TO GIVE SOLUMEDROL AND PULMO CONSULT WITH DR HEALY. BREATHING TREATMENT GIVEN TO PATIENT, ON 2L/NC. O2 SAT 96%.
--- NOTE | 2022-06-20 19:09 | NUR ---
CONSULTATION PAGED/CALLED Reason for Consultation: SOB Person Who was Notified: [facility] Consulting Physician: LOREN Drive Shaft And Steering Post Repairer Specialty: Ordering Physician: Erin COUGHLIN Addendum: 06/20/22 at 1919 by Emily Keith CNA WHEN CALLED [facility]ANGE THEY SAID THAT THEY CANT CALL OUT THE CONSULT SINCE IT SAYS DUE TO THERE NOTES IT SAYS THAT DOCTOR [facility] DOES NOT TAKE CONSULTS NO LONGER FOR [place] . INFORMED CT TRIMBLE OF THIS AND REPAGED DOCTOR COUGHLIN
--- NOTE | 2022-06-20 19:20 | NUR ---
CONSULTATION PAGED/CALLED Reason for Consultation:SOB Person Who was Notified:RUTH Consulting Physician: MONET Ecdis N Navigation Operator Specialty: Ordering Physician: Erin COUGHLIN
[2022-06-20] MEDS: METHYLPREDNISOLONE SOD SUCC 40 MG/ML VIAL IVP SCH ×2 (19:33→21:00)
--- NOTE | 2022-06-20 19:40 | NUR ---
Opening Notes Pt sitting in chair bedside receiving breathing treatment. Informed pt that MD placed order for requested medication: Solu-medrol. Pt IV is patent running iron at 110 mL/hour. Pt has call light near and has agreed to call nurse to assist with ambulation.
[2022-06-20 20:00] VITALS: BP_SYST 102
[2022-06-21 00:20] VITALS: BP_SYST 120; BP_SYST 148
[2022-06-21] MEDS: ALBUTEROL SULFATE 0.083% 2.5 MG/3 ML VIAL.NEB INH SCH ×4 (01:11→19:54)
[2022-06-21 03:30] VITALS: BP_SYST 109
--- NOTE | 2022-06-21 07:00 | NUR ---
Closing Notes Pt is resting in bed with eyes closed. Pt had a good night and complied by waiting in bed for assistance to restroom. Pt had some coughing overnight but managed a few hours of sleep. Ms Moya has some concerns about her dog and home and is aware of her physical limitations but her mind is sharp. I hope all is done to keep he in her home.
[2022-06-21] MEDS: BUDESONIDE 0.5 MG/2 ML AMPUL.NEB INH SCH ×2 (07:25→19:55)
[2022-06-21 08:00] VITALS: BP_SYST 130
--- NOTE | 2022-06-21 08:00 | NUR ---
Initial notes Received patient awake,alert,oriented x4, Able to verbalizes needs know. No c/o pain/SOB. Respiration even and unlabored no sign of distress, vital signs w/in norm. IV infusing to right forearm patent. All safety measure secured, bed in low position, call light w/in reached, continue to monitor
[2022-06-21 08:15] LABS: HEMATOCRIT 30.2 % (36-48); HEMOGLOBIN 9.7 g/dL (12.0-16.0); MEAN CORPUSCULAR HEMOGLOBIN 23 pg (27-31); MEAN CORPUSCULAR HGB CONC 32 % (32-36); MEAN CORPUSCULAR VOLUME 71 fL (79.0-98.0); PLATELET COUNT (AUTO) 362 K/uL (130-430); RED BLOOD CELL COUNT(AUTO) 4.25 MIL/uL (4.2-6.2); RED CELL DISTRIBUTION WIDTH 29.5 % (9.0-15.0); WHITE BLOOD COUNT (AUTO) 5.5 K/uL (4.8-10.8)
[2022-06-21 08:49] LABS: CALCIUM 9.3 mg/dL (8.4-11.0); CREATININE 0.35 mg/dL (0.55-1.30)
[2022-06-21] MEDS: PANTOPRAZOLE SODIUM 40 MG/VIAL (PROTONIX) IVP SCH ×2 (08:52→21:33)
[2022-06-21] MEDS: METHYLPREDNISOLONE SOD SUCC 40 MG/ML VIAL IVP SCH ×2 (08:52→20:39)
--- NOTE | 2022-06-21 09:00 | NUR ---
RAPID RESPONSE INITIATED Patient began coughing which escalated to patient unable to breath. Patient could be heard gasping for air across the floor. I immediately returned to the patients room and a Rapid Response was initiated. Pt was put on 100% O2 via re-breather
--- NOTE | 2022-06-21 10:00 | NUR ---
Rounding Resting comfortable in bed , no c/o SOB or in distress, continue to monitor
--- NOTE | 2022-06-21 12:00 | NUR ---
Rounding Patient awake watching T.V, no c/o pain or SOB, no signs of respiratory distress, continue to monitor.
[2022-06-21 12:45] VITALS: BP_SYST 115
[2022-06-21 14:00] LABS: BASOPHILS % (MANUAL) 0 % (0-2); EOSINOPHILS % (MANUAL) 4 % (0-7); LYMPHOCYTES % (MANUAL) 10 % (20-46); MONOCYTES % (MANUAL) 4 % (0-11)
--- NOTE | 2022-06-21 14:15 | NUR ---
Rounding Dr. Walton (Pulmonary) at bedside
[2022-06-21] MEDS: D5NS 1,000 ML IV SCH (16:00)
[2022-06-21] MEDS: SOD FERRIC GLUC COMPLEX/SUC 125 MG in NS 100 ML IV SCH (16:23)
[2022-06-21 16:45] VITALS: BP_SYST 126
--- NOTE | 2022-06-21 18:11 | NUR ---
Closing note Patient compliance throughout shift states "I can breath better and feel better", ate adequate amount for meals today. No c/o pain, or SOB, no sign of distress, vital signs w/in normal limit, will endorse to oncoming nurse
[2022-06-22] MEDS: ALBUTEROL SULFATE 0.083% 2.5 MG/3 ML VIAL.NEB INH SCH ×4 (05:46→20:03)
[2022-06-22] MEDS: BUDESONIDE 0.5 MG/2 ML AMPUL.NEB INH SCH ×2 (07:00→19:00)
[2022-06-22 07:14] LABS: BASOPHILS % (AUTO) 0.3 % (0.0-2.0); HEMATOCRIT 28.5 % (36-48); HEMOGLOBIN 9.1 g/dL (12.0-16.0); LYMPHOCYTES # (AUTO) 0.8 K/uL (1.0-5.5); LYMPHOCYTES % (AUTO) 7.8 % (20.5-51.5); MEAN CORPUSCULAR HEMOGLOBIN 23 pg (27-31); MEAN CORPUSCULAR HGB CONC 32 % (32-36); MEAN CORPUSCULAR VOLUME 73 fL (79.0-98.0); MONOCYTES # (AUTO) 0.4 K/uL (0.0-1.0); MONOCYTES % (AUTO) 3.9 % (1.7-9.3); NEUTROPHILS # (AUTO) 9.2 K/uL (1.8-7.7); PLATELET COUNT (AUTO) 320 K/uL (130-430); RED BLOOD CELL COUNT(AUTO) 3.93 MIL/uL (4.2-6.2); RED CELL DISTRIBUTION WIDTH 29.9 % (9.0-15.0); WHITE BLOOD COUNT (AUTO) 10.4 K/uL (4.8-10.8)
[2022-06-22 07:43] LABS: ALBUMIN 2.7 g/dL (3.4-4.8); CALCIUM 8.9 mg/dL (8.4-11.0); CREATININE 0.45 mg/dL (0.55-1.30); TOTAL BILIRUBIN 0.1 mg/dL (0.0-1.0)
[2022-06-22] MEDS: D5NS 1,000 ML IV SCH ×2 (09:18→19:45)
[2022-06-22] MEDS: PANTOPRAZOLE SODIUM 40 MG/VIAL (PROTONIX) IVP SCH ×2 (09:20→16:58)
[2022-06-22] MEDS: METHYLPREDNISOLONE SOD SUCC 40 MG/ML VIAL IVP SCH ×2 (09:21→16:57)
--- NOTE | 2022-06-22 11:28 | NUR ---
Dietitian recommendations: * continue a soft/low fiber diet per MD order * provide food per patient preference to promote PO intake (food preferences update per food and beverage manager) * continue to encourage PO intake Please refer to nutrition assessment for details. MORE VELARDE
[2022-06-22 11:36] VITALS: BP_SYST 114
[2022-06-22 15:29] VITALS: BP_SYST 141
--- NOTE | 2022-06-22 15:32 | NUR ---
CM: discussed dc to home with HH , home o2 with pt. The patient confirmed never use home oxygen, does not have oxygen concentrator or portable oxygen tank. Stated she does not need oxygen at home, the pt subsequently removed the o2 NC off her nose. Given the low saturation last night, will need to monitor pt on RA and do the ambulatory on RA as well. Plan to send pt home today via ambulance. -- NAI Ibarra made aware and to do the RA walking trial.
--- NOTE | 2022-06-22 15:47 | NUR ---
Discharge Planning: DCP faxed pt referral for home health to [facility]. [phone]. DCP to follow up. Addendum: 06/22/22 at 1627 by Viktoriya THORNTON DCP arranged transportation with [facility] [phone] BLS 7:00pm to [address] [address], [facility]. [phone] accepting patient. Patient packet taken to nurse station.
[2022-06-22] MEDS: SOD FERRIC GLUC COMPLEX/SUC 125 MG in NS 100 ML IV SCH (16:57)
[2022-06-22 18:37] VITALS: BP_SYST 148
--- NOTE | 2022-06-22 19:10 | NUR ---
Received report from AM shift RN, and assumed patient care.
[2022-06-22 20:00] VITALS: BP_SYST 134
--- NOTE | 2022-06-22 20:30 | NUR ---
Informed patient about the pending wait for the ambulance to pickup driver patient, patient understands the wait and has no further questions noted at the moment. Will reinforce if needed throughout the shift.
--- NOTE | 2022-06-22 21:35 | NUR ---
Ambulance is at bedside, patient understands teaching, discharge forms are completed, IVs are removed, no further questions or complications noted at the moment. Will reinforce if needed. Patient successfully was transferred out to home, no further complications at the moment. blueprint clerk is aware.
--- NOTE | 2022-06-23 08:15 | NUR ---
Dispo code 06
== END 2022-06-22 22:35 | disposition home health service (06) | DRG 377 ==
LOC: SED 02:50 → STU 05:34
PROVIDERS: ADMIT Preventive Medicine Preventive Medicine/Occupational Environmental Medicine; ATTEND Preventive Medicine Preventive Medicine/Occupational Environmental Medicine
PROC: 30233N1 Transfusion of Nonautologous Red Blood Cells into Peripheral Vein, Percutaneous Approach (ICD-10-PCS; 2022-06-15)
PROC: 0DB78ZX Excision of Stomach, Pylorus, Via Natural or Artificial Opening Endoscopic, Diagnostic (ICD-10-PCS; 2022-06-16)
PROC: 0DB98ZX Excision of Duodenum, Via Natural or Artificial Opening Endoscopic, Diagnostic (ICD-10-PCS; principal; 2022-06-16 12:30)
DX: K25.4 Chronic or unspecified gastric ulcer with hemorrhage (principal); E43 Unspecified severe protein-calorie malnutrition; J96.01 Acute respiratory failure with hypoxia; E87.1 Hypo-osmolality and hyponatremia; K29.71 Gastritis, unspecified, with bleeding; D50.9 Iron deficiency anemia, unspecified; K44.9 Diaphragmatic hernia without obstruction or gangrene; E88.09 Other disorders of plasma-protein metabolism, not elsewhere classified; M19.90 Unspecified osteoarthritis, unspecified site; M81.0 Age-related osteoporosis without current pathological fracture; G62.9 Polyneuropathy, unspecified; Z20.822 Contact with and (suspected) exposure to COVID-19; T38.0X5A Adverse effect of glucocorticoids and synthetic analogues, initial encounter; J45.909 Unspecified asthma, uncomplicated; M81.8 Other osteoporosis without current pathological fracture; M40.209 Unspecified kyphosis, site unspecified; E87.6 Hypokalemia; I89.0 Lymphedema, not elsewhere classified; I10 Essential (primary) hypertension; Z88.8 Allergy status to other drugs, medicaments and biological substances; Z79.899 Other long term (current) drug therapy; Z87.11 Personal history of peptic ulcer disease; Y92.89 Other specified places as the place of occurrence of the external cause; Z86.718 Personal history of other venous thrombosis and embolism; Z79.52 Long term (current) use of systemic steroids
CPT/HCPCS: 36415; 43239; 70450-TC; 71045; 73552; 73564; 73590-TC; 76376; 80048; 80053; 80307; 81003; 82272; 82533; 82607; 82728; 82746; 82803-TC; 83010; 83540; 83550; 84443; 84484; 85007; 85025; 85027; 85044; 85379; 85610-TC; 85730-TC; 86886; 86900; 86901; 86920; 87081; 88305; 88312; 88313; 93005; 93970; 94640; 94760; 99291; C9113; G0378; J1030; J2060; J2175; J2250; J2916; J7042; J7050; J7613; J7626; J8597; P9021

== ENCOUNTER 2023-11-03 23:05 | Inpatient (IN) | payer OTHER, MEDICARE ==
[~2023-11-03] VITALS: Ht 152.4 cm; Wt 45.4 kg
[~2023-11-03 23:05] MED LIST changes: -LISI-209 PO; -METH2TAB PO
[2023-11-03 23:24] VITALS: BP_SYST 117; PULSE 108; RESP 19; RESP 30; TEMP 97.9; O2SAT 97
[2023-11-04] MEDS ORDERED: METHYLPREDNISOLONE SOD SUCC 40 MG/ML VIAL ONE (00:33)
[2023-11-04] MEDS ORDERED: methylPREDNISolone SOD SUCC/PF 62.5 MG/ML VIAL ONE (00:40)
[2023-11-04] MEDS: METHYLPREDNISOLONE SOD SUCC 40 MG/ML VIAL IVP ONE (00:43)
[2023-11-04 01:05] LABS: BASOPHILS % (AUTO) 0.4 % (0.0-2.0); EOSINOPHILS # (AUTO) 1.8 K/uL (0.0-0.4); HEMATOCRIT 33.2 % (36-48); HEMOGLOBIN 11.2 g/dL (12.0-16.0); LYMPHOCYTES # (AUTO) 0.6 K/uL (1.0-5.5); LYMPHOCYTES % (AUTO) 6.7 % (20.5-51.5); MEAN CORPUSCULAR HEMOGLOBIN 27 pg (27-31); MEAN CORPUSCULAR HGB CONC 34 % (32-36); MEAN CORPUSCULAR VOLUME 81 fL (79.0-98.0); MONOCYTES # (AUTO) 0.7 K/uL (0.0-1.0); MONOCYTES % (AUTO) 7.8 % (1.7-9.3); NEUTROPHILS # (AUTO) 5.5 K/uL (1.8-7.7); NEUTROPHILS % (AUTO) 64.1 % (40.0-70.0); PLATELET COUNT (AUTO) 308 K/uL (130-430); RED BLOOD CELL COUNT(AUTO) 4.08 MIL/uL (4.2-6.2); RED CELL DISTRIBUTION WIDTH 15.4 % (9.0-15.0); WHITE BLOOD COUNT (AUTO) 8.6 K/uL (4.8-10.8)
[2023-11-04 01:12] LABS: ANION GAP 12 (5-15); CALCIUM 8.9 mg/dL (8.4-11.0); CARBON DIOXIDE 22 mmol/L (23-29); CHLORIDE 89 mmol/L (98-107); CREATININE 0.37 mg/dL (0.55-1.30); GLUCOSE 78 mg/dL (74-106); SODIUM SERUM 123 mmol/L (136-145); UREA NITROGEN, BLOOD 8 mg/dL (8-21)
[2023-11-04 02:20] LABS: INR 1.1 (0.8-1.2); PROTHROMBIN TIME 11.1 SECS (9.5-12.5)
[2023-11-04] MEDS: IPRATROPIUM BROM 0.5 MG/2.5 ML VIAL.NEB (ATROVENT) INH ONE ×2 (03:20→05:02)
[2023-11-04] MEDS: ALBUTEROL SULFATE 0.083% 2.5 MG/3 ML VIAL.NEB INH ONE ×2 (03:20→05:02)
[2023-11-04] MEDS: *HEPARIN PER PHARMACY XX ONE (04:30)
[2023-11-04] MEDS ORDERED: cefTRIAXone 1 GM VIAL ONE ×2 (05:05)
[2023-11-04] MEDS: cefTRIAXone 1 GM in D5W 50 ML IV ONE ×2 (05:06→05:11)
[2023-11-04] MEDS: HEPARIN SODIUM,PORCINE 5,000 UNITS/ML VIAL IVP ONE (05:14)
[2023-11-04] MEDS ORDERED: ALBU90AE (06:09)
[2023-11-04] MEDS ORDERED: METH4TAB17 PO (06:09)
[2023-11-04] MEDS ORDERED: ALBMDI INH (07:23)
[2023-11-04] MEDS ORDERED: HEPARIN 25,000 UNITS/D5W 250ML 250 ML IV PRN (07:45)
[2023-11-04 07:59] LABS: ABG O2 SAT% ESTIMATE 97.9 % (94.0-100.0); BLOOD GAS PCO2 24.2 mmHg (35.0-45.0); BLOOD GAS PH 7.401 (7.350-7.450); BLOOD GAS PO2 104.5 mmHg (75.0-100.0)
[2023-11-04 08:03] LABS: BLOOD GAS HCO3 14.7 mmol/L (21.0-27.0)
[2023-11-04] MEDS ORDERED: *HEPARIN PER PHARMACY XX PRN (08:15)
[2023-11-04] MEDS ORDERED: HEPARIN SODIUM,PORCINE 2000 UNITS/0.4 ML BOLUS IVP PRN (08:15)
[2023-11-04] MEDS: HEPARIN 25,000 UNITS in 250 ML PREMIX IV PRN (08:25)
[2023-11-04 09:04] VITALS: BP_SYST 107; PULSE 108; RESP 17; TEMP 98.5; O2SAT 95
[2023-11-04 09:10] VITALS: BP_SYST 107; PULSE 108; O2SAT 95
[2023-11-04] MEDS ORDERED: HYDROcodone/ACETAMIN 5-325 MG TAB (NORCO/ VICODIN) PO PRN (11:15)
[2023-11-04] MEDS ORDERED: ACETAMINOPHEN 325 MG TABLET PO PRN (11:15)
[2023-11-04] MEDS ORDERED: LORazepam 2 MG/ML VIAL IVP PRN (11:15)
[2023-11-04] MEDS ORDERED: ONDANSETRON HCL 4 MG/2 ML VIAL IVP PRN (11:15)
[2023-11-04] MEDS ORDERED: HYDROcodone/ACETAMIN 10-325 MG TAB PO PRN (11:15)
[2023-11-04] MEDS ORDERED: NALOXONE HCL 0.4 MG/ML AMP (NARCAN) IVP PRN ×2 (11:15)
[2023-11-04 12:57] VITALS: BP_SYST 103; PULSE 110; RESP 20; TEMP 98.2; O2SAT 95
[2023-11-04] MEDS: ATORVASTATIN 20 MG TABLET PO ONE (19:07)
[2023-11-04] MEDS: ASPIRIN 81 MG TAB.CHEW PO ONE (19:07)
[2023-11-04] MEDS: methylPREDNISolone SOD SUCC/PF 62.5 MG/ML VIAL IVP SCH (19:08)
[2023-11-04] MEDS: NORMAL SALINE 5 ML DISP.SYRIN IVF SCH (19:08)
[2023-11-04] MEDS: HEPARIN SODIUM,PORCINE 3000 UNITS/0.6 ML BOLUS IVP PRN (19:21)
[2023-11-04 19:58] VITALS: O2SAT 95
[2023-11-04 20:00] VITALS: BP_SYST 90; PULSE 99; RESP 19; TEMP 99.3; O2SAT 95
[2023-11-04] MEDS: SODIUM BICARBONATE 650 MG TABLET PO SCH (20:37)
[2023-11-04] MEDS: ACETAMINOPHEN 325 MG TABLET PO PRN (20:38)
[2023-11-04] MEDS ORDERED: METHYLPREDNISOLONE SOD SUCC 40 MG/ML VIAL IVP SCH (21:00)
[2023-11-05] VITALS (9 sets, daily range): BP systolic 93–105; PULSE 98–106; RESP 16–20; TEMP 97.5–98.5; O2SAT 94–100
[2023-11-05 05:33] LABS: HEMATOCRIT 33.5 % (36-48); HEMOGLOBIN 11.1 g/dL (12.0-16.0); LYMPHOCYTES # (AUTO) 0.5 K/uL (1.0-5.5); LYMPHOCYTES % (AUTO) 2.3 % (20.5-51.5); MEAN CORPUSCULAR HEMOGLOBIN 27 pg (27-31); MEAN CORPUSCULAR HGB CONC 33 % (32-36); MEAN CORPUSCULAR VOLUME 82 fL (79.0-98.0); MONOCYTES # (AUTO) 0.4 K/uL (0.0-1.0); MONOCYTES % (AUTO) 1.7 % (1.7-9.3); NEUTROPHILS # (AUTO) 21.4 K/uL (1.8-7.7); PLATELET COUNT (AUTO) 393 K/uL (130-430); RED BLOOD CELL COUNT(AUTO) 4.08 MIL/uL (4.2-6.2); RED CELL DISTRIBUTION WIDTH 15.7 % (9.0-15.0); WHITE BLOOD COUNT (AUTO) 22.3 K/uL (4.8-10.8)
[2023-11-05 05:50] LABS: ALANINE AMINOTRANSFERASE 31 U/L (12-78); ANION GAP 15 (5-15); ASPARTATE AMINOTRANSFERASE 48 U/L (10-37); CARBON DIOXIDE 21 mmol/L (23-29); CHLORIDE 91 mmol/L (98-107); CREATININE 0.53 mg/dL (0.55-1.30); GLUCOSE 135 mg/dL (74-106); POTASSIUM 4.1 mmol/L (3.5-5.1); SODIUM SERUM 127 mmol/L (136-145); TOTAL BILIRUBIN 0.4 mg/dL (0.0-1.0); TOTAL PROTEIN, SERUM 6.5 g/dL (6.4-8.3); UREA NITROGEN, BLOOD 15 mg/dL (8-21)
[2023-11-05] MEDS: IPRATROPIUM/ALBUTEROL SULFATE 3 ML AMPUL.NEB (DUONEB) INH PRN (07:17)
[2023-11-05] MEDS: cefTRIAXone 1 GM IVPB PREMIX 50 ML IV SCH (09:12)
[2023-11-05] MEDS: ASPIRIN 81 MG TAB.CHEW PO SCH (09:12)
[2023-11-05] MEDS: ATORVASTATIN 20 MG TABLET PO SCH (09:12)
[2023-11-05] MEDS: NACL 0.9% 1,000 ML IV SCH (13:55)
[2023-11-06] VITALS (9 sets, daily range): BP systolic 100–111; PULSE 79–100; RESP 16–20; TEMP 97.9–98.6; O2SAT 93–100
[2023-11-06 05:09] LABS: ANION GAP 8 (5-15); CALCIUM 8.3 mg/dL (8.4-11.0); CARBON DIOXIDE 27 mmol/L (23-29); CHLORIDE 98 mmol/L (98-107); CREATININE 0.41 mg/dL (0.55-1.30); GLUCOSE 141 mg/dL (74-106); POTASSIUM 4.1 mmol/L (3.5-5.1); SODIUM SERUM 133 mmol/L (136-145); UREA NITROGEN, BLOOD 15 mg/dL (8-21)
[2023-11-06 05:13] LABS: HEMATOCRIT 31.4 % (36-48); HEMOGLOBIN 10.2 g/dL (12.0-16.0); LYMPHOCYTES # (AUTO) 0.2 K/uL (1.0-5.5); LYMPHOCYTES % (AUTO) 1.4 % (20.5-51.5); MEAN CORPUSCULAR HEMOGLOBIN 27 pg (27-31); MEAN CORPUSCULAR HGB CONC 33 % (32-36); MEAN CORPUSCULAR VOLUME 83 fL (79.0-98.0); MONOCYTES # (AUTO) 0.4 K/uL (0.0-1.0); MONOCYTES % (AUTO) 2.6 % (1.7-9.3); NEUTROPHILS # (AUTO) 14.3 K/uL (1.8-7.7); PLATELET COUNT (AUTO) 324 K/uL (130-430); RED BLOOD CELL COUNT(AUTO) 3.81 MIL/uL (4.2-6.2); RED CELL DISTRIBUTION WIDTH 15.8 % (9.0-15.0); WHITE BLOOD COUNT (AUTO) 14.9 K/uL (4.8-10.8)
[2023-11-06 05:20] LABS: ERYTHROCYTE SEDIMENTATION RATE 24 MM/HR (0-20)
[2023-11-06] MEDS: methylPREDNISolone SOD SUCC/PF 62.5 MG/ML VIAL IVP SCH (18:08)
[2023-11-06] MEDS: IPRATROPIUM/ALBUTEROL SULFATE 3 ML AMPUL.NEB (DUONEB) INH SCH (19:56)
[2023-11-06 20:53] LABS: HEMATOCRIT 33.8 % (36-48); LYMPHOCYTES # (AUTO) 0.3 K/uL (1.0-5.5); MEAN CORPUSCULAR HEMOGLOBIN 27 pg (27-31); MEAN CORPUSCULAR HGB CONC 33 % (32-36); MEAN CORPUSCULAR VOLUME 83 fL (79.0-98.0); MONOCYTES # (AUTO) 0.6 K/uL (0.0-1.0); MONOCYTES % (AUTO) 3.8 % (1.7-9.3); NEUTROPHILS % (AUTO) 94.2 % (40.0-70.0); PLATELET COUNT (AUTO) 367 K/uL (130-430); RED BLOOD CELL COUNT(AUTO) 4.09 MIL/uL (4.2-6.2); RED CELL DISTRIBUTION WIDTH 15.7 % (9.0-15.0); WHITE BLOOD COUNT (AUTO) 14.9 K/uL (4.8-10.8)
[2023-11-07] VITALS (12 sets, daily range): BP systolic 110–131; PULSE 70–117; RESP 16–20; TEMP 96.9–98.1; O2SAT 94–100
[2023-11-07 07:48] LABS: ANION GAP 10 (5-15); CALCIUM 8.7 mg/dL (8.4-11.0); CARBON DIOXIDE 26 mmol/L (23-29); CHLORIDE 100 mmol/L (98-107); CREATININE 0.43 mg/dL (0.55-1.30); GLUCOSE 145 mg/dL (74-106); POTASSIUM 4.3 mmol/L (3.5-5.1); SODIUM SERUM 136 mmol/L (136-145); UREA NITROGEN, BLOOD 15 mg/dL (8-21)
[2023-11-08 20:00] VITALS: BP_SYST 109; PULSE 85; RESP 18; TEMP 99.2; O2SAT 93
[2023-11-09] VITALS (10 sets, daily range): BP systolic 106–136; PULSE 87–110; RESP 16–18; TEMP 97–98.4; O2SAT 91–96
[2023-11-09 10:19] LABS: ABG O2 SAT% ESTIMATE 97.6 % (94.0-100.0); BLOOD GAS BASE EXCESS 1.7 mmol/L (-3.0-3.0); BLOOD GAS HCO3 23.1 mmol/L (21.0-27.0); BLOOD GAS PCO2 28.1 mmHg (35.0-45.0); BLOOD GAS PO2 87.3 mmHg (75.0-100.0)
[2023-11-09 10:26] LABS: ALLEN'S TEST POSITIVE (P); BLOOD GAS PH 7.532 (7.350-7.450)
[2023-11-09] MEDS: IPRATROPIUM/ALBUTEROL SULFATE 3 ML AMPUL.NEB (DUONEB) ONE (10:46)
[2023-11-09 10:48] LABS: BASOPHILS % (AUTO) 0.2 % (0.0-2.0); EOSINOPHILS # (AUTO) 0.1 K/uL (0.0-0.4); EOSINOPHILS % (AUTO) 1.5 % (0.0-4.0); LYMPHOCYTES # (AUTO) 0.7 K/uL (1.0-5.5); LYMPHOCYTES % (AUTO) 8.6 % (20.5-51.5); MEAN CORPUSCULAR HEMOGLOBIN 27 pg (27-31); MEAN CORPUSCULAR HGB CONC 32 % (32-36); MEAN CORPUSCULAR VOLUME 83 fL (79.0-98.0); MONOCYTES # (AUTO) 0.9 K/uL (0.0-1.0); MONOCYTES % (AUTO) 11.2 % (1.7-9.3); NEUTROPHILS # (AUTO) 6.3 K/uL (1.8-7.7); NEUTROPHILS % (AUTO) 78.5 % (40.0-70.0); PLATELET COUNT (AUTO) 236 K/uL (130-430); RED BLOOD CELL COUNT(AUTO) 4.08 MIL/uL (4.2-6.2); RED CELL DISTRIBUTION WIDTH 15.6 % (9.0-15.0)
[2023-11-09] MEDS ORDERED: IPRATROPIUM/ALBUTEROL SULFATE 3 ML AMPUL.NEB (DUONEB) INH SCH (11:00)
[2023-11-09] MEDS: IPRATROPIUM/ALBUTEROL SULFATE 3 ML AMPUL.NEB (DUONEB) INH ONE ×2 (11:00)
[2023-11-09 11:06] LABS: ANION GAP 5 (5-15); CALCIUM 8.2 mg/dL (8.4-11.0); CARBON DIOXIDE 32 mmol/L (23-29); CHLORIDE 102 mmol/L (98-107); CREATININE 0.34 mg/dL (0.55-1.30); GLUCOSE 105 mg/dL (74-106); POTASSIUM 3.7 mmol/L (3.5-5.1); SODIUM SERUM 139 mmol/L (136-145); UREA NITROGEN, BLOOD 14 mg/dL (8-21)
[2023-11-09] MEDS: ACETYLCYSTEINE 20% 4 ML VIAL (RT) INH ONE (11:15)
[2023-11-09] MEDS: methylPREDNISolone SOD SUCC/PF 62.5 MG/ML VIAL IVP SCH (12:05)
[2023-11-09] MEDS: D5/0.45 NS 1,000 ML IV SCH (12:06)
[2023-11-09] MEDS: IPRATROPIUM/ALBUTEROL SULFATE 3 ML AMPUL.NEB (DUONEB) INH SCH (16:11)
[2023-11-09] MEDS: ACETYLCYSTEINE 20% 4 ML VIAL (RT) INH SCH (16:16)
[2023-11-09] MEDS: FUROSEMIDE 20 MG/2 ML VIAL IVP SCH (17:05)
[2023-11-09] MEDS: METOPROLOL TARTRATE 25 MG TABLET PO SCH (20:58)
[2023-11-10] VITALS (26 sets, daily range): BP systolic 87–129; PULSE 73–122; RESP 13–26; TEMP 96.5–98.4; O2SAT 81–100
[2023-11-10] MEDS: ALBUTEROL SULFATE 0.083% 2.5 MG/3 ML VIAL.NEB INH ONE (03:30)
[2023-11-10] MEDS: IPRATROPIUM BROM 0.5 MG/2.5 ML VIAL.NEB (ATROVENT) INH ONE (03:30)
[2023-11-10 04:25] LABS: ABG O2 SAT% ESTIMATE 97.3 % (94.0-100.0); BLOOD GAS BASE EXCESS 3.6 mmol/L (-3.0-3.0); BLOOD GAS HCO3 25.9 mmol/L (21.0-27.0); BLOOD GAS PCO2 32.4 mmHg (35.0-45.0); BLOOD GAS PO2 84.9 mmHg (75.0-100.0)
[2023-11-10] MEDS: FUROSEMIDE 40 MG/4 ML VIAL IVP ONE ×2 (04:31)
[2023-11-10 06:03] LABS: ALANINE AMINOTRANSFERASE 48 U/L (12-78); ALBUMIN 2.9 g/dL (3.4-4.8); ANION GAP 8 (5-15); ASPARTATE AMINOTRANSFERASE 36 U/L (10-37); CALCIUM 8.5 mg/dL (8.4-11.0); CARBON DIOXIDE 33 mmol/L (23-29); CHLORIDE 96 mmol/L (98-107); CREATININE 0.37 mg/dL (0.55-1.30); GLUCOSE 113 mg/dL (74-106); PHOSPHORUS 3.3 mg/dL (2.7-4.5); POTASSIUM 4.4 mmol/L (3.5-5.1); SODIUM SERUM 137 mmol/L (136-145); TOTAL BILIRUBIN 0.9 mg/dL (0.0-1.0); TOTAL PROTEIN, SERUM 6.2 g/dL (6.4-8.3); UREA NITROGEN, BLOOD 13 mg/dL (8-21)
[2023-11-10 06:04] LABS: BASOPHILS % (AUTO) 0.1 % (0.0-2.0); HEMATOCRIT 38.8 % (36-48); HEMOGLOBIN 12.6 g/dL (12.0-16.0); LYMPHOCYTES # (AUTO) 0.4 K/uL (1.0-5.5); LYMPHOCYTES % (AUTO) 3.6 % (20.5-51.5); MEAN CORPUSCULAR HEMOGLOBIN 27 pg (27-31); MEAN CORPUSCULAR HGB CONC 33 % (32-36); MEAN CORPUSCULAR VOLUME 83 fL (79.0-98.0); NEUTROPHILS # (AUTO) 10.5 K/uL (1.8-7.7); NEUTROPHILS % (AUTO) 88.3 % (40.0-70.0); PLATELET COUNT (AUTO) 243 K/uL (130-430); RED BLOOD CELL COUNT(AUTO) 4.67 MIL/uL (4.2-6.2)
[2023-11-10 07:26] LABS: WHITE BLOOD COUNT (AUTO) 11.9 K/uL (4.8-10.8)
[2023-11-10] MEDS ORDERED: *PPN PER PHARMACY XX PRN (09:00)
[2023-11-10] MEDS ORDERED: DEXTROSE 50% JECT 50 ML DISP.SYRIN IVP PRN (09:00)
[2023-11-10] MEDS ORDERED: METOPROLOL TARTRATE 5 MG/5 ML VIAL IVP PRN (21:00)
[2023-11-10] MEDS: SODIUM CHLORIDE IV SCH (23:00)
[2023-11-10] MEDS: TPN PERIPHERAL IV SCH (23:00)
[2023-11-10] MEDS: [UNRECOGNIZED DRUG - OTHER] IV SCH (23:00)
[2023-11-10] MEDS: POTASSIUM CHLORIDE IV SCH (23:00)
[2023-11-10] MEDS: FUROSEMIDE 40 MG/4 ML VIAL IVP SCH (23:02)
[2023-11-11] VITALS (32 sets, daily range): BP systolic 90–120; PULSE 76–127; RESP 13–24; TEMP 97.1–97.9; O2SAT 90–100
[2023-11-11] MEDS: INSULIN REGULAR, HUMAN 100 UNITS/ML, 3 ML VIAL (humuLIN R) SUBCUT PRN (01:04)
[2023-11-11] MEDS: ONDANSETRON HCL 4 MG/2 ML VIAL IVP PRN (02:13)
[2023-11-11 05:11] LABS: BASOPHILS % (AUTO) 0.1 % (0.0-2.0); HEMATOCRIT 36.4 % (36-48); HEMOGLOBIN 11.8 g/dL (12.0-16.0); LYMPHOCYTES # (AUTO) 0.2 K/uL (1.0-5.5); LYMPHOCYTES % (AUTO) 1.6 % (20.5-51.5); MEAN CORPUSCULAR HEMOGLOBIN 27 pg (27-31); MEAN CORPUSCULAR HGB CONC 33 % (32-36); MEAN CORPUSCULAR VOLUME 82 fL (79.0-98.0); MONOCYTES # (AUTO) 0.9 K/uL (0.0-1.0); MONOCYTES % (AUTO) 6.7 % (1.7-9.3); NEUTROPHILS # (AUTO) 11.8 K/uL (1.8-7.7); NEUTROPHILS % (AUTO) 91.6 % (40.0-70.0); PLATELET COUNT (AUTO) 277 K/uL (130-430); RED BLOOD CELL COUNT(AUTO) 4.42 MIL/uL (4.2-6.2); RED CELL DISTRIBUTION WIDTH 15.9 % (9.0-15.0); WHITE BLOOD COUNT (AUTO) 12.8 K/uL (4.8-10.8)
[2023-11-11 05:45] LABS: ANION GAP 6 (5-15); CALCIUM 8.3 mg/dL (8.4-11.0); CARBON DIOXIDE 37 mmol/L (23-29); CHLORIDE 95 mmol/L (98-107); CREATININE 0.53 mg/dL (0.55-1.30); GLUCOSE 146 mg/dL (74-106); SODIUM SERUM 138 mmol/L (136-145); UREA NITROGEN, BLOOD 26 mg/dL (8-21)
[2023-11-11 06:57] LABS: POTASSIUM 2.9 mmol/L (3.5-5.1)
[2023-11-11] MEDS: KCL 40 mEq in 100 mL (PREMIX) 100 ML IV ONE (09:11)
[2023-11-11] MEDS ORDERED: [UNRECOGNIZED DRUG - OTHER] IV SCH (21:00)
[2023-11-11] MEDS ORDERED: POTASSIUM CHLORIDE IV SCH (21:00)
[2023-11-11] MEDS ORDERED: SODIUM CHLORIDE IV SCH (21:00)
[2023-11-11] MEDS ORDERED: TPN PERIPHERAL IV SCH (21:00)
[2023-11-11] MEDS: SODIUM CHLORIDE IV SCH (21:12)
[2023-11-11] MEDS: [UNRECOGNIZED DRUG - OTHER] IV SCH (21:12)
[2023-11-11] MEDS: POTASSIUM CHLORIDE IV SCH (21:12)
[2023-11-11] MEDS: TPN PERIPHERAL IV SCH (21:12)
[2023-11-12] VITALS (35 sets, daily range): BP systolic 96–140; PULSE 73–96; RESP 13–26; TEMP 97.2–97.9; O2SAT 86–99
[2023-11-12] MEDS: ACETAMINOPHEN 325 MG TABLET PO PRN (04:53)
[2023-11-12 05:06] LABS: HEMATOCRIT 37.7 % (36-48); HEMOGLOBIN 12.1 g/dL (12.0-16.0); LYMPHOCYTES # (AUTO) 0.2 K/uL (1.0-5.5); LYMPHOCYTES % (AUTO) 1.4 % (20.5-51.5); MEAN CORPUSCULAR HEMOGLOBIN 27 pg (27-31); MEAN CORPUSCULAR HGB CONC 32 % (32-36); MEAN CORPUSCULAR VOLUME 83 fL (79.0-98.0); MONOCYTES # (AUTO) 0.8 K/uL (0.0-1.0); NEUTROPHILS # (AUTO) 15.6 K/uL (1.8-7.7); NEUTROPHILS % (AUTO) 93.6 % (40.0-70.0); PLATELET COUNT (AUTO) 274 K/uL (130-430); RED BLOOD CELL COUNT(AUTO) 4.52 MIL/uL (4.2-6.2); RED CELL DISTRIBUTION WIDTH 16.1 % (9.0-15.0); WHITE BLOOD COUNT (AUTO) 16.7 K/uL (4.8-10.8)
[2023-11-12 05:45] LABS: ALANINE AMINOTRANSFERASE 46 U/L (12-78); ALBUMIN 2.9 g/dL (3.4-4.8); ANION GAP 5 (5-15); ASPARTATE AMINOTRANSFERASE 11 U/L (10-37); CARBON DIOXIDE 38 mmol/L (23-29); CHLORIDE 94 mmol/L (98-107); CREATININE 0.52 mg/dL (0.55-1.30); GLUCOSE 118 mg/dL (74-106); PHOSPHORUS 3.4 mg/dL (2.7-4.5); POTASSIUM 3.6 mmol/L (3.5-5.1); SODIUM SERUM 137 mmol/L (136-145); TOTAL BILIRUBIN 0.6 mg/dL (0.0-1.0); TOTAL PROTEIN, SERUM 6.2 g/dL (6.4-8.3); UREA NITROGEN, BLOOD 30 mg/dL (8-21)
[2023-11-12] MEDS: SODIUM CHLORIDE IV SCH (08:50)
[2023-11-12] MEDS: [UNRECOGNIZED DRUG - OTHER] IV SCH (08:50)
[2023-11-12] MEDS: POTASSIUM CHLORIDE IV SCH (08:50)
[2023-11-12] MEDS: TPN PERIPHERAL IV SCH (08:50)
[2023-11-12] MEDS: KCL 20 mEq in 100 mL (PREMIX) 100 ML IV SCH (09:00)
[2023-11-12] MEDS: CARVEDILOL 3.125 MG TABLET (COREG) PO ONE (13:39)
[2023-11-12] MEDS: HEPARIN SODIUM,PORCINE 5,000 UNITS/ML VIAL SUBCUT ONE (13:41)
[2023-11-12] MEDS ORDERED: FUROSEMIDE 20 MG TABLET PO SCH (21:30)
[2023-11-12] MEDS: HEPARIN SODIUM,PORCINE 5,000 UNITS/ML VIAL SUBCUT SCH (22:03)
[2023-11-12] MEDS: CARVEDILOL 3.125 MG TABLET (COREG) PO SCH (22:05)
[2023-11-13] VITALS (30 sets, daily range): BP systolic 104–134; PULSE 69–96; RESP 13–19; TEMP 96.8–98; O2SAT 90–99
[2023-11-13 06:36] LABS: BASOPHILS % (AUTO) 0.2 % (0.0-2.0); HEMATOCRIT 36.6 % (36-48); HEMOGLOBIN 11.7 g/dL (12.0-16.0); LYMPHOCYTES # (AUTO) 0.2 K/uL (1.0-5.5); LYMPHOCYTES % (AUTO) 1.4 % (20.5-51.5); MEAN CORPUSCULAR HEMOGLOBIN 26 pg (27-31); MEAN CORPUSCULAR HGB CONC 32 % (32-36); MEAN CORPUSCULAR VOLUME 83 fL (79.0-98.0); MONOCYTES # (AUTO) 0.8 K/uL (0.0-1.0); MONOCYTES % (AUTO) 4.5 % (1.7-9.3); NEUTROPHILS # (AUTO) 15.9 K/uL (1.8-7.7); NEUTROPHILS % (AUTO) 93.9 % (40.0-70.0); PLATELET COUNT (AUTO) 251 K/uL (130-430); RED BLOOD CELL COUNT(AUTO) 4.43 MIL/uL (4.2-6.2); RED CELL DISTRIBUTION WIDTH 16.5 % (9.0-15.0); WHITE BLOOD COUNT (AUTO) 16.9 K/uL (4.8-10.8)
[2023-11-13 06:57] LABS: ALANINE AMINOTRANSFERASE 62 U/L (12-78); ALBUMIN 2.6 g/dL (3.4-4.8); ANION GAP 3 (5-15); ASPARTATE AMINOTRANSFERASE 36 U/L (10-37); CALCIUM 8.5 mg/dL (8.4-11.0); CARBON DIOXIDE 36 mmol/L (23-29); CHLORIDE 95 mmol/L (98-107); CREATININE 0.36 mg/dL (0.55-1.30); GLUCOSE 150 mg/dL (74-106); POTASSIUM 3.6 mmol/L (3.5-5.1); SODIUM SERUM 134 mmol/L (136-145); TOTAL BILIRUBIN 0.6 mg/dL (0.0-1.0); TOTAL PROTEIN, SERUM 5.6 g/dL (6.4-8.3); UREA NITROGEN, BLOOD 32 mg/dL (8-21)
[2023-11-13] MEDS: FUROSEMIDE 20 MG TABLET PO SCH (09:11)
[2023-11-13] MEDS: CARVEDILOL 6.25 MG TABLET (COREG) PO SCH (20:36)
[2023-11-13] MEDS: TPN PERIPHERAL IV SCH (20:49)
[2023-11-13] MEDS: [UNRECOGNIZED DRUG - OTHER] IV SCH (20:49)
[2023-11-13] MEDS: SODIUM CHLORIDE IV SCH (20:49)
[2023-11-13] MEDS: POTASSIUM CHLORIDE IV SCH (20:49)
[2023-11-14] VITALS (29 sets, daily range): BP systolic 94–154; PULSE 61–94; RESP 13–28; TEMP 96.5–97.3; O2SAT 91–100
[2023-11-14 06:06] LABS: ERYTHROCYTE SEDIMENTATION RATE 4 MM/HR (0-20)
[2023-11-14 06:21] LABS: HEMATOCRIT 36.1 % (36-48); HEMOGLOBIN 11.6 g/dL (12.0-16.0); LYMPHOCYTES # (AUTO) 0.3 K/uL (1.0-5.5); LYMPHOCYTES % (AUTO) 1.7 % (20.5-51.5); MEAN CORPUSCULAR HEMOGLOBIN 27 pg (27-31); MEAN CORPUSCULAR HGB CONC 32 % (32-36); MEAN CORPUSCULAR VOLUME 83 fL (79.0-98.0); MONOCYTES # (AUTO) 0.7 K/uL (0.0-1.0); NEUTROPHILS # (AUTO) 17.7 K/uL (1.8-7.7); NEUTROPHILS % (AUTO) 94.3 % (40.0-70.0); PLATELET COUNT (AUTO) 230 K/uL (130-430); RED BLOOD CELL COUNT(AUTO) 4.37 MIL/uL (4.2-6.2); RED CELL DISTRIBUTION WIDTH 16.4 % (9.0-15.0); WHITE BLOOD COUNT (AUTO) 18.8 K/uL (4.8-10.8)
[2023-11-14 06:33] LABS: ALANINE AMINOTRANSFERASE 95 U/L (12-78); ALBUMIN 2.5 g/dL (3.4-4.8); ANION GAP 2 (5-15); ASPARTATE AMINOTRANSFERASE 57 U/L (10-37); CALCIUM 8.6 mg/dL (8.4-11.0); CARBON DIOXIDE 35 mmol/L (23-29); CHLORIDE 100 mmol/L (98-107); CREATININE 0.35 mg/dL (0.55-1.30); GLUCOSE 117 mg/dL (74-106); PHOSPHORUS 2.8 mg/dL (2.7-4.5); POTASSIUM 3.8 mmol/L (3.5-5.1); SODIUM SERUM 137 mmol/L (136-145); TOTAL BILIRUBIN 0.6 mg/dL (0.0-1.0); TOTAL PROTEIN, SERUM 5.4 g/dL (6.4-8.3); UREA NITROGEN, BLOOD 32 mg/dL (8-21)
[2023-11-14] MEDS: POLYETHYLENE GLYCOL 3350, 17 GM/ POWD.PACK PO ONE (11:05)
[2023-11-14] MEDS: AZITHROMYCIN 500 MG in NS 250 ML IV SCH (16:48)
[2023-11-14] MEDS: DOCUSATE SODIUM 100 MG CAPSULE PO SCH (20:55)
[2023-11-14] MEDS: TPN PERIPHERAL IV SCH (20:57)
[2023-11-14] MEDS: [UNRECOGNIZED DRUG - OTHER] IV SCH (20:57)
[2023-11-14] MEDS: POTASSIUM CHLORIDE IV SCH (20:57)
[2023-11-14] MEDS: SODIUM CHLORIDE IV SCH (20:57)
[2023-11-15] VITALS (12 sets, daily range): BP systolic 96–146; PULSE 62–78; RESP 13–22; TEMP 96.4–97.9; O2SAT 91–100
[2023-11-15 05:29] LABS: BASOPHILS % (AUTO) 0.1 % (0.0-2.0); HEMATOCRIT 36.1 % (36-48); HEMOGLOBIN 11.6 g/dL (12.0-16.0); LYMPHOCYTES # (AUTO) 0.3 K/uL (1.0-5.5); LYMPHOCYTES % (AUTO) 1.2 % (20.5-51.5); MEAN CORPUSCULAR HEMOGLOBIN 27 pg (27-31); MEAN CORPUSCULAR HGB CONC 32 % (32-36); MEAN CORPUSCULAR VOLUME 83 fL (79.0-98.0); MONOCYTES # (AUTO) 0.6 K/uL (0.0-1.0); MONOCYTES % (AUTO) 2.8 % (1.7-9.3); NEUTROPHILS # (AUTO) 22.2 K/uL (1.8-7.7); PLATELET COUNT (AUTO) 233 K/uL (130-430); RED BLOOD CELL COUNT(AUTO) 4.37 MIL/uL (4.2-6.2); RED CELL DISTRIBUTION WIDTH 16.6 % (9.0-15.0); WHITE BLOOD COUNT (AUTO) 23.1 K/uL (4.8-10.8)
[2023-11-15 06:20] LABS: ANION GAP 4 (5-15); ASPARTATE AMINOTRANSFERASE 41 U/L (10-37); CALCIUM 8.6 mg/dL (8.4-11.0); CARBON DIOXIDE 31 mmol/L (23-29); CHLORIDE 99 mmol/L (98-107); CREATININE 0.29 mg/dL (0.55-1.30); GLUCOSE 152 mg/dL (74-106); POTASSIUM 4.4 mmol/L (3.5-5.1); SODIUM SERUM 134 mmol/L (136-145); TOTAL BILIRUBIN 0.4 mg/dL (0.0-1.0); UREA NITROGEN, BLOOD 29 mg/dL (8-21)
[2023-11-15 06:21] LABS: ALANINE AMINOTRANSFERASE 86 U/L (12-78); ALBUMIN 2.4 g/dL (3.4-4.8); PHOSPHORUS 2.4 mg/dL (2.7-4.5); TOTAL PROTEIN, SERUM 5.4 g/dL (6.4-8.3)
[2023-11-15 10:00] LABS: NEUTROPHILS % (AUTO) 95.9 % (40.0-70.0)
[2023-11-15] MEDS: POLYETHYLENE GLYCOL 3350, 17 GM/ POWD.PACK PO SCH (10:08)
[2023-11-15] MEDS: NA PHOS 15 MM in NS 250 ML IV ONE (10:19)
[2023-11-15] MEDS: methylPREDNISolone SOD SUCC/PF 62.5 MG/ML VIAL IVP SCH (14:14)
[2023-11-15] MEDS: [UNRECOGNIZED DRUG - OTHER] IV SCH (20:05)
[2023-11-15] MEDS: K PHOS IV SCH (20:05)
[2023-11-15] MEDS: TPN PERIPHERAL IV SCH (20:05)
[2023-11-15] MEDS: SODIUM CHLORIDE IV SCH (20:05)
[2023-11-15] MEDS: MVI IV SCH (20:05)
[2023-11-16] VITALS (10 sets, daily range): BP systolic 105–138; PULSE 62–94; RESP 14–18; TEMP 97.6–98.2; O2SAT 93–98
[2023-11-16 05:40] LABS: HEMATOCRIT 34.3 % (36-48); LYMPHOCYTES # (AUTO) 0.3 K/uL (1.0-5.5); LYMPHOCYTES % (AUTO) 1.4 % (20.5-51.5); MEAN CORPUSCULAR HEMOGLOBIN 27 pg (27-31); MEAN CORPUSCULAR HGB CONC 32 % (32-36); MEAN CORPUSCULAR VOLUME 82 fL (79.0-98.0); MONOCYTES # (AUTO) 0.5 K/uL (0.0-1.0); MONOCYTES % (AUTO) 2.7 % (1.7-9.3); NEUTROPHILS # (AUTO) 18.5 K/uL (1.8-7.7); NEUTROPHILS % (AUTO) 95.9 % (40.0-70.0); PLATELET COUNT (AUTO) 225 K/uL (130-430); RED BLOOD CELL COUNT(AUTO) 4.17 MIL/uL (4.2-6.2); RED CELL DISTRIBUTION WIDTH 16.5 % (9.0-15.0); WHITE BLOOD COUNT (AUTO) 19.3 K/uL (4.8-10.8)
[2023-11-16 05:44] LABS: ERYTHROCYTE SEDIMENTATION RATE 5 MM/HR (0-20)
[2023-11-16 06:22] LABS: ALANINE AMINOTRANSFERASE 159 U/L (12-78); ALBUMIN 2.1 g/dL (3.4-4.8); ANION GAP 7 (5-15); ASPARTATE AMINOTRANSFERASE 67 U/L (10-37); CALCIUM 8.2 mg/dL (8.4-11.0); CARBON DIOXIDE 28 mmol/L (23-29); CHLORIDE 99 mmol/L (98-107); CREATININE 0.35 mg/dL (0.55-1.30); GLUCOSE 166 mg/dL (74-106); PHOSPHORUS 2.8 mg/dL (2.7-4.5); POTASSIUM 3.4 mmol/L (3.5-5.1); SODIUM SERUM 134 mmol/L (136-145); TOTAL BILIRUBIN 0.3 mg/dL (0.0-1.0); TOTAL PROTEIN, SERUM 4.9 g/dL (6.4-8.3); UREA NITROGEN, BLOOD 28 mg/dL (8-21)
[2023-11-16] MEDS: DOCUSATE SODIUM 100 MG/10 ML UDC PO SCH (09:53)
[2023-11-16] MEDS ORDERED: POTASSIUM CHLORIDE 20 MEQ TABLET.ER PO ONE (11:30)
[2023-11-16] MEDS ORDERED: CALCIUM GLUCONATE 2 GM in NS 100 ML IV ONE (12:30)
[2023-11-16] MEDS ORDERED: CALCIUM GLUC 2 GM/100ML-NACL 100 ML IV ONE (13:00)
[2023-11-16] MEDS ORDERED: KCL 40 mEq in 100 mL (PREMIX) 100 ML IV ONE (14:15)
[2023-11-16] MEDS: POTASSIUM CHLORIDE 20 mEq in 100 mL (PREMIX) 100 ML x 2 doses IV SCH (18:24)
[2023-11-16 19:06] LABS: MYCOPLASMA PNEUMONIAE IgM <770 U/mL (0-769)
[2023-11-16] MEDS: [UNRECOGNIZED DRUG - OTHER] IV SCH (20:50)
[2023-11-16] MEDS: SODIUM CHLORIDE IV SCH (20:50)
[2023-11-16] MEDS: TPN PERIPHERAL IV SCH (20:50)
[2023-11-16] MEDS: POTASSIUM CHLORIDE IV SCH (20:50)
[2023-11-17] VITALS (8 sets, daily range): BP systolic 103–136; PULSE 72–88; RESP 16–18; TEMP 96.7–98; O2SAT 93–97
[2023-11-17 04:45] LABS: ERYTHROCYTE SEDIMENTATION RATE 7 MM/HR (0-20)
[2023-11-17 05:24] LABS: ALANINE AMINOTRANSFERASE 219 U/L (12-78); ALBUMIN 2.3 g/dL (3.4-4.8); ANION GAP 6 (5-15); ASPARTATE AMINOTRANSFERASE 67 U/L (10-37); CALCIUM 8.4 mg/dL (8.4-11.0); CARBON DIOXIDE 30 mmol/L (23-29); CHLORIDE 99 mmol/L (98-107); CREATININE 0.34 mg/dL (0.55-1.30); GLUCOSE 90 mg/dL (74-106); PHOSPHORUS 2.3 mg/dL (2.7-4.5); POTASSIUM 3.9 mmol/L (3.5-5.1); SODIUM SERUM 135 mmol/L (136-145); TOTAL BILIRUBIN 0.3 mg/dL (0.0-1.0); UREA NITROGEN, BLOOD 27 mg/dL (8-21)
[2023-11-17 05:33] LABS: HEMATOCRIT 35.7 % (36-48); HEMOGLOBIN 11.6 g/dL (12.0-16.0); LYMPHOCYTES # (AUTO) 0.4 K/uL (1.0-5.5); LYMPHOCYTES % (AUTO) 1.6 % (20.5-51.5); MEAN CORPUSCULAR HEMOGLOBIN 27 pg (27-31); MEAN CORPUSCULAR HGB CONC 33 % (32-36); MEAN CORPUSCULAR VOLUME 82 fL (79.0-98.0); MONOCYTES # (AUTO) 0.6 K/uL (0.0-1.0); MONOCYTES % (AUTO) 2.6 % (1.7-9.3); NEUTROPHILS % (AUTO) 95.8 % (40.0-70.0); PLATELET COUNT (AUTO) 250 K/uL (130-430); RED BLOOD CELL COUNT(AUTO) 4.36 MIL/uL (4.2-6.2); RED CELL DISTRIBUTION WIDTH 16.5 % (9.0-15.0)
[2023-11-17] MEDS: NA PHOS 15 MM in NS 250 ML IV ONE (12:21)
[2023-11-17] MEDS: MICAFUNGIN SODIUM 50 MG in NS 50 ML IV SCH (15:41)
[2023-11-17] MEDS: [UNRECOGNIZED DRUG - OTHER] IV SCH (21:31)
[2023-11-17] MEDS: POTASSIUM CHLORIDE IV SCH (21:31)
[2023-11-17] MEDS: SODIUM CHLORIDE IV SCH (21:31)
[2023-11-17] MEDS: TPN PERIPHERAL IV SCH (21:31)
[2023-11-18 00:25] VITALS: BP_SYST 124; PULSE 68; RESP 18; TEMP 97.5; O2SAT 98
[2023-11-18 04:40] LABS: BASOPHILS % (AUTO) 0.1 % (0.0-2.0); HEMATOCRIT 32.6 % (36-48); HEMOGLOBIN 10.5 g/dL (12.0-16.0); LYMPHOCYTES # (AUTO) 0.3 K/uL (1.0-5.5); LYMPHOCYTES % (AUTO) 1.7 % (20.5-51.5); MEAN CORPUSCULAR HEMOGLOBIN 27 pg (27-31); MEAN CORPUSCULAR HGB CONC 32 % (32-36); MEAN CORPUSCULAR VOLUME 82 fL (79.0-98.0); MONOCYTES # (AUTO) 0.5 K/uL (0.0-1.0); MONOCYTES % (AUTO) 2.6 % (1.7-9.3); NEUTROPHILS # (AUTO) 16.9 K/uL (1.8-7.7); NEUTROPHILS % (AUTO) 95.6 % (40.0-70.0); PLATELET COUNT (AUTO) 202 K/uL (130-430); RED BLOOD CELL COUNT(AUTO) 3.96 MIL/uL (4.2-6.2); RED CELL DISTRIBUTION WIDTH 16.5 % (9.0-15.0); WHITE BLOOD COUNT (AUTO) 17.7 K/uL (4.8-10.8)
[2023-11-18 05:08] LABS: ALANINE AMINOTRANSFERASE 166 U/L (12-78); ANION GAP 6 (5-15); ASPARTATE AMINOTRANSFERASE 38 U/L (10-37); CALCIUM 7.9 mg/dL (8.4-11.0); CARBON DIOXIDE 29 mmol/L (23-29); CHLORIDE 100 mmol/L (98-107); CREATININE 0.37 mg/dL (0.55-1.30); GLUCOSE 134 mg/dL (74-106); PHOSPHORUS 2.2 mg/dL (2.7-4.5); POTASSIUM 3.5 mmol/L (3.5-5.1); SODIUM SERUM 135 mmol/L (136-145); TOTAL BILIRUBIN 0.3 mg/dL (0.0-1.0); TOTAL PROTEIN, SERUM 4.6 g/dL (6.4-8.3); UREA NITROGEN, BLOOD 26 mg/dL (8-21)
[2023-11-18 06:43] LABS: ERYTHROCYTE SEDIMENTATION RATE 2 MM/HR (0-20)
[2023-11-18 07:45] VITALS: PULSE 89; O2SAT 96
[2023-11-18 08:00] VITALS: BP_SYST 127; PULSE 99; RESP 18; TEMP 97.7; O2SAT 100
[2023-11-18 11:12] VITALS: BP_SYST 120; PULSE 89; RESP 14; TEMP 96.6; O2SAT 95
[2023-11-18 16:15] VITALS: BP_SYST 121; PULSE 89; RESP 15; TEMP 96.6; O2SAT 95
[2023-11-18 19:06] LABS: MYCOPLASMA PNEUMONIAE IgM <770 U/mL (0-769)
[2023-11-18 20:00] VITALS: BP_SYST 110; PULSE 78; RESP 18; TEMP 97.9; O2SAT 98
[2023-11-18] MEDS: methylPREDNISolone SOD SUCC/PF 62.5 MG/ML VIAL IVP SCH (21:42)
[2023-11-18] MEDS: SODIUM CHLORIDE IV SCH (21:46)
[2023-11-18] MEDS: TPN PERIPHERAL IV SCH (21:46)
[2023-11-18] MEDS: [UNRECOGNIZED DRUG - OTHER] IV SCH (21:46)
[2023-11-18] MEDS: POTASSIUM CHLORIDE IV SCH (21:46)
[2023-11-19] VITALS (8 sets, daily range): BP systolic 115–133; PULSE 69–76; RESP 14–18; TEMP 97.9–98.7; O2SAT 95–97
[2023-11-19 05:59] LABS: BASOPHILS % (AUTO) 0.1 % (0.0-2.0); HEMATOCRIT 28.8 % (36-48); HEMOGLOBIN 9.5 g/dL (12.0-16.0); LYMPHOCYTES # (AUTO) 0.4 K/uL (1.0-5.5); LYMPHOCYTES % (AUTO) 2.1 % (20.5-51.5); MEAN CORPUSCULAR HEMOGLOBIN 27 pg (27-31); MEAN CORPUSCULAR HGB CONC 33 % (32-36); MEAN CORPUSCULAR VOLUME 82 fL (79.0-98.0); MONOCYTES # (AUTO) 0.7 K/uL (0.0-1.0); MONOCYTES % (AUTO) 3.7 % (1.7-9.3); NEUTROPHILS # (AUTO) 16.9 K/uL (1.8-7.7); NEUTROPHILS % (AUTO) 94.1 % (40.0-70.0); PLATELET COUNT (AUTO) 200 K/uL (130-430); RED BLOOD CELL COUNT(AUTO) 3.53 MIL/uL (4.2-6.2); RED CELL DISTRIBUTION WIDTH 16.3 % (9.0-15.0)
[2023-11-19 06:06] LABS: ERYTHROCYTE SEDIMENTATION RATE 1 MM/HR (0-20)
[2023-11-19 06:06] LABS: COCCIDIOIDES AB IGG 0.1 IV (<=0.9); COCCIDIOIDES AB IGM 0.2 IV (<=0.9)
[2023-11-19 06:30] LABS: ALANINE AMINOTRANSFERASE 146 U/L (12-78); ANION GAP 4 (5-15); ASPARTATE AMINOTRANSFERASE 41 U/L (10-37); CALCIUM 8.4 mg/dL (8.4-11.0); CARBON DIOXIDE 30 mmol/L (23-29); CHLORIDE 102 mmol/L (98-107); CREATININE 0.33 mg/dL (0.55-1.30); GLUCOSE 127 mg/dL (74-106); PHOSPHORUS 2.7 mg/dL (2.7-4.5); SODIUM SERUM 136 mmol/L (136-145); TOTAL BILIRUBIN 0.3 mg/dL (0.0-1.0); TOTAL PROTEIN, SERUM 4.7 g/dL (6.4-8.3); UREA NITROGEN, BLOOD 34 mg/dL (8-21)
[2023-11-19] MEDS ORDERED: PRED20TA PO (11:04)
[2023-11-19] MEDS ORDERED: FLUC200T PO (11:04)
[2023-11-19] MEDS ORDERED: POLY17PO4 PO (11:04)
[2023-11-19] MEDS ORDERED: COR6.25 PO (11:04)
[2023-11-19] MEDS ORDERED: FURO-150 PO (11:04)
[2023-11-19] MEDS ORDERED: DOXY100C5 PO (11:04)
[2023-11-19] MEDS ORDERED: METHYLPREDNISOLONE SOD SUCC 40 MG/ML VIAL IVP SCH (21:00)
[2023-11-19] MEDS ORDERED: DOXYCYCLINE HYCLATE 100 MG CAPSULE PO SCH (21:00)
[2023-11-20] MEDS ORDERED: FLUCONAZOLE 200 MG TABLET (DIFLUCAN) PO SCH (09:00)
[2023-11-21 14:06] LABS: IMMUNOGLOBULIN E,TOTAL 477 IU/mL (6-495)
== END 2023-11-19 19:41 | DRG 871 ==
LOC: SED 23:05 → STU 11-04 05:43 → UNDODISIN 11-07 22:15 → SMU 11-08 19:14 → STU 11-08 19:24 → SMU 11-09 16:10 → SIC 11-10 03:22 → STU 11-16 13:19
PROVIDERS: ADMIT Preventive Medicine Preventive Medicine/Occupational Environmental Medicine; ATTEND Preventive Medicine Preventive Medicine/Occupational Environmental Medicine
PROC: 5A0955A Assistance with Respiratory Ventilation, Greater than 96 Consecutive Hours, High Flow/Velocity Cannula (ICD-10-PCS; principal; 2023-11-10)
PROC: 5A09357 Assistance with Respiratory Ventilation, Less than 24 Consecutive Hours, Continuous Positive Airway Pressure (ICD-10-PCS; 2023-11-10)
PROC: B54MZZA Ultrasonography of Right Upper Extremity Veins, Guidance (ICD-10-PCS; 2023-11-10)
PROC: 05HY33Z Insertion of Infusion Device into Upper Vein, Percutaneous Approach (ICD-10-PCS; 2023-11-10)
PROC: B54NZZA Ultrasonography of Left Upper Extremity Veins, Guidance (ICD-10-PCS; 2023-11-18)
PROC: 05HY33Z Insertion of Infusion Device into Upper Vein, Percutaneous Approach (ICD-10-PCS; 2023-11-18)
DX: A41.9 Sepsis, unspecified organism (principal); E43 Unspecified severe protein-calorie malnutrition; J18.9 Pneumonia, unspecified organism; J96.21 Acute and chronic respiratory failure with hypoxia; I21.A1 Myocardial infarction type 2; I50.21 Acute systolic (congestive) heart failure; J44.1 Chronic obstructive pulmonary disease with (acute) exacerbation; J45.901 Unspecified asthma with (acute) exacerbation; E87.20 Acidosis, unspecified; E87.1 Hypo-osmolality and hyponatremia; J44.0 Chronic obstructive pulmonary disease with (acute) lower respiratory infection; Z68.1 Body mass index [BMI] 19.9 or less, adult; Z20.822 Contact with and (suspected) exposure to COVID-19; I25.10 Atherosclerotic heart disease of native coronary artery without angina pectoris; E87.6 Hypokalemia; E83.39 Other disorders of phosphorus metabolism; D64.9 Anemia, unspecified; K44.9 Diaphragmatic hernia without obstruction or gangrene; E88.09 Other disorders of plasma-protein metabolism, not elsewhere classified; Z86.718 Personal history of other venous thrombosis and embolism; Z79.899 Other long term (current) drug therapy; Z79.01 Long term (current) use of anticoagulants; I25.2 Old myocardial infarction; Z88.8 Allergy status to other drugs, medicaments and biological substances; Z79.51 Long term (current) use of inhaled steroids
CPT/HCPCS: 36415; 36600; 71045; 71275; 76700; 80048; 80053; 80076; 82785; 82803; 82948; 83735; 83880; 84100; 84478; 84484; 85025; 85379; 85610; 85651; 85730; 86635; 86738; 87040; 87081; 87305; 92610-GN; 93005; 93306; 94640; 94660; 94760; 97110-GP; 97530-GP; 99283; 99291; G0378; J0456; J0610; J0696; J1030; J1644; J1815; J1940; J2405; J2930; J3475; J3480; J7050; J7060; J7131; J7608; Q9967

== ENCOUNTER 2023-11-27 13:11 | Inpatient (IN) | payer OTHER, MEDICARE ==
[~2023-11-27] VITALS: Ht 160 cm; Wt 44.5 kg
[2023-11-27 01:00] VITALS: O2SAT 98
[~2023-11-27 13:11] MED LIST changes: +ALBMDI INH; +COR6.25 PO; +DOXY100C5 PO; +FLUC200T PO; +FURO-150 PO; +POLY17PO4 PO; +PRED20TA PO
[2023-11-27 13:20] VITALS: BP_SYST 106; PULSE 85; RESP 18; TEMP 97.8; O2SAT 97
[2023-11-27] MEDS ORDERED: ALBMDI INH (13:32)
[2023-11-27] MEDS ORDERED: PRED20TA PO (13:32)
[2023-11-27] MEDS ORDERED: LACT1CAP69 PO (13:32)
[2023-11-27] MEDS ORDERED: CARV6.2554 PO (13:32)
[2023-11-27] MEDS ORDERED: FURO20TA4 PO (13:32)
[2023-11-27] MEDS ORDERED: ACET325T PO (13:32)
[2023-11-27] MEDS ORDERED: ONDA-8 PO (13:32)
[2023-11-27] MEDS ORDERED: DOCU-156 PO (13:32)
[2023-11-27 14:12] LABS: BASOPHILS % (AUTO) 0.4 % (0.0-2.0); LYMPHOCYTES # (AUTO) 1.3 K/uL (1.0-5.5); MEAN CORPUSCULAR VOLUME 85 fL (79.0-98.0); MONOCYTES # (AUTO) 0.4 K/uL (0.0-1.0)
[2023-11-27 14:16] LABS: EOSINOPHILS % (AUTO) 0.4 % (0.0-4.0); LYMPHOCYTES % (AUTO) 14.4 % (20.5-51.5); MEAN CORPUSCULAR HEMOGLOBIN 28 pg (27-31); MEAN CORPUSCULAR HGB CONC 33 % (32-36); MONOCYTES % (AUTO) 4.7 % (1.7-9.3); NEUTROPHILS # (AUTO) 7.2 K/uL (1.8-7.7); NEUTROPHILS % (AUTO) 80.1 % (40.0-70.0); PLATELET COUNT (AUTO) 231 K/uL (130-430); RED BLOOD CELL COUNT(AUTO) 2.44 MIL/uL (4.2-6.2); RED CELL DISTRIBUTION WIDTH 20.4 % (9.0-15.0)
[2023-11-27 14:20] LABS: HEMATOCRIT 20.8 % (36-48); HEMOGLOBIN 6.8 g/dL (12.0-16.0)
[2023-11-27 14:35] LABS: ANION GAP 7 (5-15); CALCIUM 8.1 mg/dL (8.4-11.0); CARBON DIOXIDE 29 mmol/L (23-29); CHLORIDE 103 mmol/L (98-107); CREATININE 0.39 mg/dL (0.55-1.30); GLUCOSE 76 mg/dL (74-106); POTASSIUM 3.4 mmol/L (3.5-5.1); SODIUM SERUM 139 mmol/L (136-145); UREA NITROGEN, BLOOD 15 mg/dL (8-21)
[2023-11-27] MEDS: NACL 0.9% 1,000 ML IV ONE (15:21)
[2023-11-27] MEDS: PANTOPRAZOLE SODIUM 40 MG/VIAL (PROTONIX) IVP ONE (15:30)
[2023-11-27 18:57] VITALS: BP_SYST 132; PULSE 73; RESP 16; TEMP 97.2; O2SAT 99
[2023-11-27 20:00] VITALS: BP_SYST 126; PULSE 81; RESP 18; TEMP 97.7; O2SAT 98
[2023-11-28 00:01] VITALS: BP_SYST 143; PULSE 87; RESP 18; TEMP 97.8
[2023-11-28] MEDS: D5/0.45 NS 1,000 ML IV SCH (01:26)
[2023-11-28 08:00] VITALS: BP_SYST 121; PULSE 73; RESP 18; TEMP 97.3; O2SAT 96
[2023-11-28 08:48] VITALS: O2SAT 96
[2023-11-28] MEDS ORDERED: ONDANSETRON HCL 4 MG/2 ML VIAL IVP PRN (10:00)
[2023-11-28] MEDS ORDERED: LORazepam 2 MG/ML VIAL IVP PRN (10:00)
[2023-11-28 11:35] LABS: ANION GAP 7 (5-15); CALCIUM 7.8 mg/dL (8.4-11.0); CARBON DIOXIDE 27 mmol/L (23-29); CHLORIDE 104 mmol/L (98-107); CREATININE 0.33 mg/dL (0.55-1.30); GLUCOSE 70 mg/dL (74-106); POTASSIUM 3.5 mmol/L (3.5-5.1); SODIUM SERUM 138 mmol/L (136-145); UREA NITROGEN, BLOOD 10 mg/dL (8-21)
[2023-11-28 11:37] VITALS: BP_SYST 129; PULSE 71; RESP 19; TEMP 98.8; O2SAT 96
[2023-11-28 11:44] LABS: EOSINOPHILS # (AUTO) 0.1 K/uL (0.0-0.4); EOSINOPHILS % (AUTO) 0.9 % (0.0-4.0); HEMOGLOBIN 12.5 g/dL (12.0-16.0); MEAN CORPUSCULAR VOLUME 86 fL (79.0-98.0); MONOCYTES # (AUTO) 0.5 K/uL (0.0-1.0)
[2023-11-28 11:48] LABS: BASOPHILS # (AUTO) 0.1 K/uL (0.0-0.2); BASOPHILS % (AUTO) 0.7 % (0.0-2.0); HEMATOCRIT 37.3 % (36-48); LYMPHOCYTES # (AUTO) 1.4 K/uL (1.0-5.5); LYMPHOCYTES % (AUTO) 14.6 % (20.5-51.5); MEAN CORPUSCULAR HEMOGLOBIN 29 pg (27-31); MEAN CORPUSCULAR HGB CONC 34 % (32-36); MONOCYTES % (AUTO) 4.8 % (1.7-9.3); NEUTROPHILS # (AUTO) 7.6 K/uL (1.8-7.7); RED BLOOD CELL COUNT(AUTO) 4.32 MIL/uL (4.2-6.2); RED CELL DISTRIBUTION WIDTH 17.2 % (9.0-15.0); WHITE BLOOD COUNT (AUTO) 9.6 K/uL (4.8-10.8)
[2023-11-28 14:33] LABS: PLATELET COUNT (AUTO) 184 K/uL (130-430)
[2023-11-28 17:28] VITALS: BP_SYST 131; PULSE 73; RESP 19; TEMP 97.5; O2SAT 97
[2023-11-28] MEDS: PANTOPRAZOLE SODIUM 40 MG/VIAL (PROTONIX) IVP SCH (22:21)
[2023-11-29] VITALS (8 sets, daily range): BP systolic 110–129; PULSE 78–108; RESP 17–19; TEMP 98.3–99.9; O2SAT 95–97
[2023-11-29 05:23] LABS: BASOPHILS % (AUTO) 0.7 % (0.0-2.0); EOSINOPHILS # (AUTO) 0.1 K/uL (0.0-0.4); EOSINOPHILS % (AUTO) 1.4 % (0.0-4.0); HEMATOCRIT 35.2 % (36-48); HEMOGLOBIN 11.6 g/dL (12.0-16.0); LYMPHOCYTES # (AUTO) 1.1 K/uL (1.0-5.5); LYMPHOCYTES % (AUTO) 14.9 % (20.5-51.5); MEAN CORPUSCULAR HEMOGLOBIN 28 pg (27-31); MEAN CORPUSCULAR HGB CONC 33 % (32-36); MEAN CORPUSCULAR VOLUME 86 fL (79.0-98.0); MONOCYTES # (AUTO) 0.3 K/uL (0.0-1.0); MONOCYTES % (AUTO) 4.3 % (1.7-9.3); NEUTROPHILS # (AUTO) 5.6 K/uL (1.8-7.7); NEUTROPHILS % (AUTO) 78.7 % (40.0-70.0); PLATELET COUNT (AUTO) 183 K/uL (130-430); RED BLOOD CELL COUNT(AUTO) 4.09 MIL/uL (4.2-6.2); WHITE BLOOD COUNT (AUTO) 7.1 K/uL (4.8-10.8)
[2023-11-29 05:48] LABS: ALANINE AMINOTRANSFERASE 53 U/L (12-78); ALBUMIN 1.6 g/dL (3.4-4.8); ANION GAP 7 (5-15); ASPARTATE AMINOTRANSFERASE 23 U/L (10-37); CALCIUM 7.7 mg/dL (8.4-11.0); CARBON DIOXIDE 27 mmol/L (23-29); CHLORIDE 104 mmol/L (98-107); CREATININE 0.33 mg/dL (0.55-1.30); GLUCOSE 78 mg/dL (74-106); POTASSIUM 3.1 mmol/L (3.5-5.1); SODIUM SERUM 138 mmol/L (136-145); TOTAL BILIRUBIN 0.6 mg/dL (0.0-1.0); TOTAL PROTEIN, SERUM 4.5 g/dL (6.4-8.3); UREA NITROGEN, BLOOD 6 mg/dL (8-21)
[2023-11-29] MEDS ORDERED: ALBUTEROL MDI INHALATION 8 GM INH INH PRN (11:00)
[2023-11-29] MEDS ORDERED: ALBUTEROL SULFATE 0.083% 2.5 MG/3 ML VIAL.NEB INH PRN (11:00)
[2023-11-29] MEDS: POLYETHYLENE GLYCOL 3350, 17 GM/ POWD.PACK PO ONE (11:00)
[2023-11-29] MEDS: DOCUSATE SODIUM 100 MG CAPSULE PO ONE (11:00)
[2023-11-29] MEDS ORDERED: FLUCONAZOLE 200 MG TABLET (DIFLUCAN) PO SCH (11:00)
[2023-11-29] MEDS: ALBUTEROL SULFATE 0.083% 2.5 MG/3 ML VIAL.NEB INH SCH (13:00)
[2023-11-29] MEDS: FUROSEMIDE 20 MG TABLET PO ONE (13:40)
[2023-11-29] MEDS: LACTOBACILLUS RHAMNOSUS GG 1 CAP CAPSULE PO SCH (14:19)
[2023-11-29] MEDS: BUDESONIDE 0.5 MG/2 ML AMPUL.NEB INH SCH (19:00)
[2023-11-29] MEDS ORDERED: DOXYCYCLINE HYCLATE 100 MG CAPSULE PO SCH (21:00)
[2023-11-29] MEDS: CARVEDILOL 6.25 MG TABLET (COREG) PO SCH (21:29)
[2023-11-30] VITALS (7 sets, daily range): BP systolic 93–149; PULSE 67–101; RESP 16–18; TEMP 97.5–98.6; O2SAT 91–98
[2023-11-30 06:31] LABS: BASOPHILS % (AUTO) 0.5 % (0.0-2.0); EOSINOPHILS # (AUTO) 0.1 K/uL (0.0-0.4); HEMATOCRIT 35.1 % (36-48); HEMOGLOBIN 11.7 g/dL (12.0-16.0); LYMPHOCYTES % (AUTO) 11.4 % (20.5-51.5); MEAN CORPUSCULAR HEMOGLOBIN 29 pg (27-31); MEAN CORPUSCULAR HGB CONC 33 % (32-36); MEAN CORPUSCULAR VOLUME 86 fL (79.0-98.0); MONOCYTES # (AUTO) 0.4 K/uL (0.0-1.0); MONOCYTES % (AUTO) 4.2 % (1.7-9.3); NEUTROPHILS # (AUTO) 7.1 K/uL (1.8-7.7); NEUTROPHILS % (AUTO) 82.9 % (40.0-70.0); PLATELET COUNT (AUTO) 196 K/uL (130-430); RED BLOOD CELL COUNT(AUTO) 4.07 MIL/uL (4.2-6.2); RED CELL DISTRIBUTION WIDTH 17.9 % (9.0-15.0); WHITE BLOOD COUNT (AUTO) 8.6 K/uL (4.8-10.8)
[2023-11-30 06:44] LABS: ANION GAP 7 (5-15); CALCIUM 7.8 mg/dL (8.4-11.0); CARBON DIOXIDE 29 mmol/L (23-29); CHLORIDE 99 mmol/L (98-107); CREATININE 0.34 mg/dL (0.55-1.30); GLUCOSE 71 mg/dL (74-106); SODIUM SERUM 135 mmol/L (136-145); UREA NITROGEN, BLOOD 5 mg/dL (8-21)
[2023-11-30 07:46] LABS: POTASSIUM 2.8 mmol/L (3.5-5.1)
[2023-11-30 08:43] LABS: WHITE BLOOD COUNT (AUTO) 9.1 K/uL (4.8-10.8)
[2023-11-30] MEDS: DOCUSATE SODIUM 100 MG CAPSULE PO SCH (09:00)
[2023-11-30] MEDS: POLYETHYLENE GLYCOL 3350, 17 GM/ POWD.PACK PO SCH (09:00)
[2023-11-30] MEDS: FUROSEMIDE 20 MG TABLET PO SCH (09:37)
[2023-11-30] MEDS ORDERED: POTASSIUM CHLORIDE 40 MEQ in NS 250 ML IV ONE (10:00)
[2023-11-30] MEDS: POTASSIUM CHLORIDE 40 MEQ in NS 250 ML IV ONE (14:10)
[2023-11-30] MEDS: NORMAL SALINE 5 ML DISP.SYRIN IVF SCH (14:21)
[2023-11-30] MEDS ORDERED: LANOLIN ALCOHOL/MO/W.PET/CERES 57 GM CREAM..G. TP SCH (21:00)
== END 2023-11-30 20:32 | DRG 811 ==
LOC: SED 13:11 → SMU 15:24
PROVIDERS: ADMIT Preventive Medicine Preventive Medicine/Occupational Environmental Medicine; ATTEND Preventive Medicine Preventive Medicine/Occupational Environmental Medicine
PROC: 30233N1 Transfusion of Nonautologous Red Blood Cells into Peripheral Vein, Percutaneous Approach (ICD-10-PCS; principal; 2023-11-27)
DX: D62 Acute posthemorrhagic anemia (principal); E43 Unspecified severe protein-calorie malnutrition; Z68.1 Body mass index [BMI] 19.9 or less, adult; E87.1 Hypo-osmolality and hyponatremia; E87.6 Hypokalemia; E83.51 Hypocalcemia; I11.0 Hypertensive heart disease with heart failure; I50.9 Heart failure, unspecified; J44.9 Chronic obstructive pulmonary disease, unspecified; E88.09 Other disorders of plasma-protein metabolism, not elsewhere classified; Z79.899 Other long term (current) drug therapy; I10 Essential (primary) hypertension; M19.90 Unspecified osteoarthritis, unspecified site
CPT/HCPCS: 36415; 80048; 80053; 85025; 86886; 86900; 86901; 86920; 87081; 94760; 96361; 96374; 97110-GP; 97530-GP; 99285; C9113; J3480; J7050; J7626; P9021